=== PATIENT | female | born 1960 | race Caucasian/White ===

== ENCOUNTER 2020-03-02 09:05 | Outpatient (CLI) | payer OTHER, SELFPAY ==
--- NOTE | ~2020-03-02 | MM_ITS ---
EXAMINATION: MM screening reinier BI w jackie HISTORY: Screening TECHNIQUE: Craniocaudal and mediolateral oblique 3-D tomosynthesis images were obtained and synthetic 2-D images were generated. CAD analysis was submitted and interpreted. COMPARISON: 03/01/2019 BREAST PARENCHYMAL COMPOSITION: There are scattered areas of fibroglandular density. FINDINGS: There is no evidence of suspicious mass, calcification, or architectural distortion to sugg est malignancy in either breast. There has been no suspicious interval change. IMPRESSION: 1. No mammographic evidence of malignancy. 2. Recommend routine screening mammography in one year. BI-RADS Category 1: Negative Reviewed, dictated and finalized at location A.
== END 2020-03-02 09:06 | disposition home or self-care (01) ==
LOC: ANHIMG 09:09
DX: Z12.31 Encounter for screening mammogram for malignant neoplasm of breast (principal)
CPT/HCPCS: 77063; 77067

== ENCOUNTER 2020-04-11 12:48 | Emergency (ER) | payer OTHER, SELFPAY ==
--- NOTE | ~2020-04-11 | XR_ITS ---
EXAMINATION: XR knee LT 3V EXAM DATE: 04/11/2020 13:59 INDICATION: fall on 03/31/2020 lateral pain. Initial encounter. TECHNIQUE: Left knee frontal, crosstable lateral, orthogonal oblique projections for interpretation. There is no prior study for comparison. FINDINGS: No evidence osteochondral defect or joint body in the left knee joint. There are no acute fractures or dislocations identified. There is no subcutaneous gas. The soft tissue is unremarkabl e. There are no radiopaque foreign bodies. IMPRESSION: 1. XR knee LT 3V exam without acute osseous findings. Reviewed, dictated and finalized at location A. [employer]
--- NOTE | ~2020-04-11 | XR_ITS ---
EXAMINATION: XR lumbar spine 2-3V EXAM DATE: 04/11/2020 14:00 INDICATION: fall on 03/31/2020 pain low back. Low back pain. TECHNIQUE: Lumber spine frontal, lateral, lateral L5-S1 projections for interpretation. Correlation i s made to chest x-ray 11/24/2016. FINDINGS: The vertebral bodies are aligned in the AP dimension. There is mild compression fracture of the T12 vertebral body, unchanged compared to a chest x-ray from 2017. The vertebral body and dis c heights are otherwise well maintained. There are cholecystectomy clips. Mild facet arthropathy. Sa jose, sacroiliac joints, sacral arcuate lines are intact. Paraspinal soft tissue is unremarkable. IMPRESSION: Mild chronic T11 compression. Mild facet arthropathy. Reviewed, dictated and finalized at location A. [place] [facility]
--- NOTE | 2020-04-11 12:55 | ED.BACK ---
HPI - Back Pain/Injury General Chief Complaint: Back Pain/Injury Stated Complaint: knee/back pain Time Seen by Provider: 04/11/20 13:15 Source: patient and RN notes reviewed Mode of arrival: ambulatory Limitations: no limitations History of Present Illness HPI Narrative: 59 female presents with multiple complaints. Reports she fell on March 31 landing on her left elbow and hitting her right knee with a leaf blower. Reports she had no immediate problems or pain, went on about her day. Reports she saw her primary care provider because a break in the skin on her left elbow and her right knee seems to be infected. Reports he put her on clindamycin. Reports he suggested she get x-rays before her return appointment tomorrow. He did not order any x-rays. She denies any at home intervention, any [id number] intervention. She reports most pain is in her left knee and her right low back shooting down to her hip. She denies hip pain worsens with weightbearing. MD elicited complaint: fall Related Data Home Medications Medication Instructions Recorded Confirmed atorvastatin 40 mg DAILY 04/11/20 04/11/20 fexofenadine 60 mg DAILY 04/11/20 04/11/20 metoprolol succinate 50 mg PO DAILY 04/11/20 04/11/20 pantoprazole 40 mg PO DAILY 04/11/20 04/11/20 Allergies Allergy/AdvReac Type Severity Reaction Status Date / Time corn Allergy Intermediate STOMACH Verified 10/05/15 14:39 ISSUES/ ITCHING soy Allergy Intermediate STOMACH Verified 10/05/15 14:39 ISSUES/ITCHING wheat Allergy Intermediate STOMACH Verified 10/05/15 14:39 ISSUES/ITCHING ibuprofen Allergy Mild Unverified 10/05/15 14:39 Penicillins Allergy Mild Unverified 10/05/15 14:39 Sulfa (Sulfonamide Allergy Unknown Verified 11/24/16 02:22 Antibiotics) Cat Dander Allergy Intermediate HIVES, Uncoded 10/05/15 14:39 TONGUE SWELLS Review of Systems Review of Systems: Narrative: CONSTITUTIONAL: Denies malaise, chills, sweats, or fever. EYES: Denies visual changes, redness, or discharge. ENT: Denies rhinorrhea, congestion, sinus pain, otalgia or sore throat. CARDIOVASCULAR: Denies chest pain, palpitations, or edema. RESPIRATORY: Denies cough or dyspnea. GASTROINTESTINAL: Denies abdominal pain, nausea, vomiting GENITOURINARY: Denies dysuria or hematuria. SKIN: Reports healing wounds on her left elbow and right knee MUSCULOSKELETAL: Reports right low back pain, left knee pain NEUROLOGIC: Denies numbness, weakness, or headache. All systems reviewed & are unremarkable except as noted in HPI and below PMFSH Past Medical History Medical History (Updated 04/11/20 @ 14:14 by Daphne Carrillo NP) Cardiovascular disease Social History Social History (Updated 04/11/20 @ 13:40 by Daphne Carrillo NP) Smoking status: Current every day smoker Tobacco type: cigarettes Gender identity (if verbalized by the patient): Female Comments At time of signature, agree with nursing past medical, surgical, social and family history. There is no relevant family history pertinent to the presenting complaint Exam Narrative: Exam Narrative: GENERAL: Well-appearing, well-nourished, and in no acute distress. HEAD: Normocephalic, atraumatic. EYES: PERRLA NECK: Supple. No lymphadenopathy. CHEST: Scattered inspiratory wheeze to right lung, otherwise clear to auscultation. No rhonchi, no respiratory distress. HEART: Regular rate and rhythm. Distal pulses palpable and equal, cap refill <3 seconds MUSCULOSKELETAL: Normal range of motion and strength in all extremities; 5/5 strength with hip flexion and extension, dorsiflexion and extension, knee flexion and extension, plantar flexion and extension. Normal sensation in dermatomal distributions with sensitivity to light touch and pain. No midline back tenderness to palpation. No paraspinal tenderness. Transfers from lying to sitting to standing. Anterior drawer test negative, Juancho test negative, lever test negative to
[2020-04-11 13:02] VITALS: BP 123/70; PULSE 83; RESP 18; TEMP 36.3; O2SAT 100
== END 2020-04-11 14:23 | disposition home or self-care (01) ==
PROVIDERS: Emergency Provider Nurse Practitioner
DX: M54.5 Low back pain (principal); M25.562 Pain in left knee; W19.XXXD Unspecified fall, subsequent encounter; F17.210 Nicotine dependence, cigarettes, uncomplicated
CPT/HCPCS: 72100; 73562; 99214; G0463

== ENCOUNTER 2020-05-04 14:20 | Emergency (ER) | payer OTHER, SELFPAY ==
[2020-05-04 14:30] VITALS: BP 144/75; PULSE 74; RESP 18; TEMP 36.2; O2SAT 99
--- NOTE | 2020-05-04 14:32 | ED.GENADULT ---
HPI - General Adult General Chief complaint: Unspecified Stated complaint: pos thrush Time Seen by Provider: 05/04/20 14:33 Source: patient and RN notes reviewed Mode of arrival: ambulatory Limitations: no limitations History of Present Illness HPI narrative: 59 year old female presents with concern for white coating on her tongue, vaginal yeast infection that started after she finished a course of antibiotics. She also reports ear fullness, sinus drainage for several days. She denies fever, shortness of breath, body aches, chills, loss of taste or smell. Patient is a smoker MD complaint: Rash Related Data Home Medications Medication Instructions Recorded Confirmed atorvastatin 40 mg DAILY 04/11/20 05/04/20 fexofenadine 60 mg DAILY 04/11/20 05/04/20 metoprolol succinate 50 mg PO DAILY 04/11/20 05/04/20 pantoprazole 40 mg PO DAILY 04/11/20 05/04/20 clopidogrel 75 mg PO DAILY 05/04/20 05/04/20 montelukast 10 mg PO DAILY 05/04/20 05/04/20 Allergies Allergy/AdvReac Type Severity Reaction Status Date / Time corn Allergy Intermediate STOMACH Verified 05/04/20 14:39 ISSUES/ ITCHING soy Allergy Intermediate STOMACH Verified 05/04/20 14:39 ISSUES/ITCHING wheat Allergy Intermediate STOMACH Verified 05/04/20 14:39 ISSUES/ITCHING ibuprofen Allergy Mild Hives Verified 05/04/20 14:39 Penicillins Allergy Mild Hives Verified 05/04/20 14:39 Sulfa (Sulfonamide Allergy Unknown Hives Verified 05/04/20 14:39 Antibiotics) Cat Dander Allergy Intermediate HIVES, Uncoded 10/05/15 14:39 TONGUE SWELLS Review of Systems Review of Systems: Narrative: CONSTITUTIONAL: Denies malaise, chills, sweats, or fever. EYES: Denies visual changes, redness, or discharge. ENT: Reports rhinorrhea, congestion, ear fullness. Denies sinus pain, otalgia or sore throat. CARDIOVASCULAR: Denies chest pain, palpitations, or edema. RESPIRATORY: Denies new cough or dyspnea. SKIN: Reports vaginal itching, white coating on tongue MUSCULOSKELETAL: Denies myalgia. NEUROLOGIC: Denies headache. All systems reviewed & are unremarkable except as noted in HPI and below PMFSH Past Medical History Medical History (Updated 05/04/20 @ 14:54 by Daphne Carrillo NP) Cardiovascular disease Social History Social History (Updated 04/11/20 @ 13:40 by Daphne Carrillo NP) Smoking status: Current every day smoker Tobacco type: cigarettes Gender identity (if verbalized by the patient): Female Comments At time of signature, agree with nursing past medical, surgical, social and family history. There is no relevant family history pertinent to the presenting complaint Exam Narrative: Exam Narrative: GENERAL: Well-appearing, well-nourished, and in no acute distress. HEAD: Normocephalic EYES: PERRLA, conjunctivae clear ENT: Nares clear, clear disharge. Mucous membranes moist. TM pearly tyler with sharp light reflex bilaterally; no tragal tenderness. Oropharynx without erythema or lesions. Tonsils not enlarged and without exudate. White coating noted on tongue consistent with thrush NECK: Supple. No lymphadenopathy. CHEST: No respiratory distress. scattered expiratory wheeze othewise clear to auscultation. No bony deformities, no asymmetry. Speaks in full sentences. HEART: Regular rate and rhythm. SKIN: Warm, dry, no rash. NEURO: Alert and oriented x3. No focal deficits. Cranial nerves II through XII grossly intact PSYCH: Normal mood and affect Course Course Emergency Course: Patient is aware of diagnosis, understands and agrees to treatment plan. Anticipatory guidance given. Patient agrees to follow-up as directed and is aware of reasons to seek care at the emergency department. Portions of this record may have been created with voice recognition software Vital Signs Vital signs: Vital Signs Temperature 97.2 F L 05/04/20 14:30 Pulse Rate 74 05/04/20 14:30 Respiratory Rate 18 05/04/20 14:30 Blood Pressure 144/75 H 05/04/20 1
== END 2020-05-04 15:13 | disposition home or self-care (01) ==
PROVIDERS: Emergency Provider Nurse Practitioner
DX: B37.3 Candidiasis of vulva and vagina (principal); B37.0 Candidal stomatitis; J40 Bronchitis, not specified as acute or chronic; F17.210 Nicotine dependence, cigarettes, uncomplicated
CPT/HCPCS: 99213; G0463

== ENCOUNTER 2020-12-29 13:34 | Emergency (ER) | payer OTHER, SELFPAY ==
[2020-12-29 13:51] VITALS: BP 119/77; PULSE 82; RESP 16; TEMP 36.6; O2SAT 98
--- NOTE | 2020-12-29 14:19 | PC.NURSE ---
1400-Pt refusing to get covid tested. Pt states There are too many false positives and I'm not going to go through all that government bull shit . Provider educated pt regarding need for testing especially because of her history. Pt at one point got up and was going to leave. Provider discussed alternate options and repeatedly attempted to get pt to be tested but she continued to refuse.
--- NOTE | 2020-12-29 15:34 | ED.URI ---
HPI - URI/Sore Throat General Chief Complaint: Upper Respiratory Infection Stated Complaint: Chest Congestion,Cough,Headache,Sinus Source: patient and RN notes reviewed Limitations: no limitations History of Present Illness HPI Narrative: The unvaccinated patient-- a recent ex-smoker/rare drinker with COPD, CAD??presents with cough and congestion. Patient states she has nearly a week history of cough, nasal congestion and chills which has worsened her COPD . No fever, loss of taste/smell, CP, calf pain/edema, vomiting/diarrhea, shortness of breath. She does have some pleurisy only with deep breathing; she repeatedly declines Covid testing AMA saying she is skeptical and knows her own body . She declines further testing and almost declines further treatment, as she begins to elope. Related Data Home Medications Medication Instructions Recorded Confirmed atorvastatin 40 mg DAILY 04/11/20 12/29/20 fexofenadine 60 mg DAILY 04/11/20 12/29/20 metoprolol succinate 50 mg PO DAILY 04/11/20 12/29/20 pantoprazole 40 mg PO DAILY 04/11/20 12/29/20 clopidogrel 75 mg PO DAILY 05/04/20 12/29/20 montelukast 10 mg PO DAILY 05/04/20 12/29/20 albuterol sulfate 2 puff INHALATION BID PRN 12/29/20 12/29/20 azelastine 1 spray INTRANASAL BID 12/29/20 12/29/20 Allergies Allergy/AdvReac Type Severity Reaction Status Date / Time corn Allergy Intermediate STOMACH Verified 12/29/20 14:04 ISSUES/ ITCHING soy Allergy Intermediate STOMACH Verified 12/29/20 14:04 ISSUES/ITCHING wheat Allergy Intermediate STOMACH Verified 12/29/20 14:04 ISSUES/ITCHING ibuprofen Allergy Mild Hives Verified 12/29/20 14:04 Penicillins Allergy Mild Hives Verified 12/29/20 14:04 Sulfa (Sulfonamide Allergy Unknown Hives Verified 12/29/20 14:04 Antibiotics) Cat Dander Allergy Intermediate HIVES, Uncoded 12/29/20 14:04 TONGUE SWELLS Review of Systems Review of Systems: General/Constitutional: No weight loss,fever Eyes: N0: Redness,discharge Ears/Nose/Throat: No: Epistaxis,ear discharge Respiratory: Denies: Hemoptysis Gastrointestinal: No Vomiting, Bleeding-rectal Skin: No Lumps, eruption Neurologic: No Focal Weakness,Sz Hematologic: Denies: Petechiae/Purpura Psychiatric: No: Suicida ideationl All Other Systems: Reviewed and Negative [facility] Past Medical History Medical History (Updated 12/29/20 @ 15:29 by Roddy Floyd MD) Cardiovascular disease Social History Social History (Updated 04/11/20 @ 13:40 by Daphne Carrillo NP) Smoking status: Current every day smoker Tobacco type: cigarettes Gender identity (if verbalized by the patient): Female Comments At time of signature, agree with nursing past medical, surgical, social and family history. There is no relevant family history pertinent to the presenting complaint Exam Narrative: General Appearance: Well appearing, Well nourished EYE: PERRLA, Conjunctiva clear Ears: Auditory canal normal, TM normal Nose: Rhinorrhea, Mucousal erythema Mouth/Throat: MM moist, Uvula midline, Pharyngeal erythema Neck: Supple, No adenopathy Respiratory: No respiratory distress, BS equal sl decreased at bases, increased AP diameter, fine ex. wheeze Cardiovascular: RRR, No JVD, no edema Musculoskeletal: Non tender, Normal strength Skin: Warm, Dry Neurological: A&O x3, CN II-XII intact Psychiatric: Normal mood, Normal affect Course Vital Signs Vital signs: Vital Signs Temperature 97.9 F 12/29/20 13:51 Pulse Rate 82 12/29/20 13:51 Respiratory Rate 16 12/29/20 13:51 Blood Pressure 119/77 12/29/20 13:51 Pulse Oximetry 98 12/29/20 13:51 Temperature 97.9 F 12/29/20 13:51 Pulse Rate 82 12/29/20 13:51 Respiratory Rate 16 12/29/20 13:51 Blood Pressure 119/77 12/29/20 13:51 Pulse Oximetry 98 12/29/20 13:51 Discharge Plan Discharge Clinical Impression: Wheezing-associated respiratory infection (WARI), Influenza-like illness
== END 2020-12-29 14:38 | disposition home or self-care (01) ==
PROVIDERS: Emergency Provider Emergency Medicine
DX: J98.01 Acute bronchospasm (principal); J11.1 Influenza due to unidentified influenza virus with other respiratory manifestations; I25.10 Atherosclerotic heart disease of native coronary artery without angina pectoris
CPT/HCPCS: 99213; G0463

== ENCOUNTER 2021-01-11 17:28 | Emergency (ER) | payer OTHER, SELFPAY ==
[2021-01-11 17:45] VITALS: BP 116/63; PULSE 94; RESP 18; TEMP 36.3; O2SAT 99
--- NOTE | 2021-01-11 18:34 | ER_ITS ---
This report was moved to the correct visit, [id number] on 01/30/21. Original report was signed by Stanley Light APN 01/11/21 1108. HPI - Extremity Injury (Upper) General Stated Complaint: Headache,Cough,Chest Congestion,Sinus Source: patient and RN notes reviewed History of Present Illness HPI narrative: This is a 60-year-old female that was recently here on 12/29/2020 and treated for bronchitis she was discharged with cefdinir , an inhaler prednisone and Tessalon Perles. Patient noted that her condition did improve but as of yesterday she started to have sinus tenderness to her frontal lobes, ear and head congestion. Patient notes that her mucus was yellowish in color. Patient notes that she does have a history of having sinus infection and she is usually given Levaquin to resolve her symptoms. She also notes that she has a burning sensation with a white coat to her tongue. Patient recently received prednisone and take albuterol she notes that she does rinse her mouth after the use of albuterol. The patient denies SOB, CP, palpitation, extremity numbness, lightheadedness, dizziness, constipation, diarrhea, chills, or fever. Related Data Home Medications Medication Instructions Recorded Confirmed atorvastatin 40 mg DAILY 04/11/20 12/29/20 fexofenadine 60 mg DAILY 04/11/20 12/29/20 metoprolol succinate 50 mg PO DAILY 04/11/20 12/29/20 pantoprazole 40 mg PO DAILY 04/11/20 12/29/20 clopidogrel 75 mg PO DAILY 05/04/20 12/29/20 montelukast 10 mg PO DAILY 05/04/20 12/29/20 albuterol sulfate 2 puff INHALATION BID PRN 12/29/20 12/29/20 azelastine 1 spray INTRANASAL BID 12/29/20 12/29/20 Allergies Allergy/AdvReac Type Severity Reaction Status Date / Time corn Allergy Intermediate STOMACH Verified 01/11/21 17:45 ISSUES/ ITCHING soy Allergy Intermediate STOMACH Verified 01/11/21 17:45 ISSUES/ITCHING wheat Allergy Intermediate STOMACH Verified 01/11/21 17:45 ISSUES/ITCHING ibuprofen Allergy Mild Hives Verified 01/11/21 17:45 Penicillins Allergy Mild Hives Verified 01/11/21 17:45 Sulfa (Sulfonamide Allergy Unknown Hives Verified 01/11/21 17:45 Antibiotics) Cat Dander Allergy Intermediate HIVES, Uncoded 01/11/21 17:45 TONGUE SWELLS Review of Systems Review of Systems: A 14 organ system Review of Systems was performed and pertinent positives included in the HPI, otherwise remaining ROS is negative. [facility] Past Medical History Medical History (Updated 01/11/21 @ 18:28 by CASPER Canales) Cardiovascular disease Family History Family History (Updated 01/11/21 @ 18:32 by CASPER Canales) Other Family history non-contributory Social History Social History (Updated 04/11/20 @ 13:40 by Daphne Carrillo NP) Smoking status: Current every day smoker Tobacco type: cigarettes Gender identity (if verbalized by the patient): Female Exam Narrative: GENERAL: This is a well-nourished, well-developed patient, in no apparent distress. HEAD: normocephalic, atraumatic. EYES: PERRL. Sclera clear/white. Vision is grossly intact. EARS: External ears normal, auditory canals clear and without drainage, TMs normal without perforation. Hearing grossly intact. NOSE: External nose normal with no obvious nasal discharge, nares without redness, no rhinorrhea. Maxillary and frontal tenderness THROAT: Mucous membranes moist, posterior pharynx clear. White coat over her tongue NECK: Neck supple, non-tender without lymphadenopathy, masses or thyromegaly. CARDIOVASCULAR: Regular rate and rhythm without murmur
== END 2021-01-11 18:40 | disposition home or self-care (01) ==
LOC: EXPTROY 17:36
PROVIDERS: Emergency Provider Nurse Practitioner
DX: B37.0 Candidal stomatitis (principal); J01.01 Acute recurrent maxillary sinusitis; F17.210 Nicotine dependence, cigarettes, uncomplicated; I25.10 Atherosclerotic heart disease of native coronary artery without angina pectoris
CPT/HCPCS: 99213; G0463

== ENCOUNTER 2021-03-02 14:51 | Outpatient (CLI) | payer OTHER, SELFPAY ==
--- NOTE | ~2021-03-02 | MM_ITS ---
EXAMINATION: MM screening reinier BI w jackie HISTORY: Screening mammogram TECHNIQUE: Craniocaudal and mediolateral oblique 3-D tomosynthesis images were obtained and synthetic 2-D images were generated. CAD analysis was submitted and interpreted. COMPARISON: 03/02/2020, 03/01/2019 bilateral digital screening mammogram examinations BREAST PARENCHYMAL COMPOSITION: There are scattered areas of fibroglandular density. FINDINGS: Stable mild fibroglandular asymmetry and occasional bilateral scattered benign calcificatio ns. There is no evidence of suspicious mass, calcification, or architectural distortion to suggest ma lignancy in either breast. There has been no suspicious interval change. IMPRESSION: 1. No mammographic evidence of malignancy. 2. Recommend routine screening mammography in one year. BI-RADS Category 2: Benign finding(s). Reviewed, dictated and finalized at location A.
== END 2021-03-02 14:52 | disposition home or self-care (01) ==
LOC: ANHIMG 14:54
DX: Z12.31 Encounter for screening mammogram for malignant neoplasm of breast (principal)
CPT/HCPCS: 77063; 77067

== ENCOUNTER 2021-12-28 13:11 | Emergency (ER) | payer OTHER, SELFPAY ==
[2021-12-28 13:52] VITALS: BP 162/83; PULSE 74; RESP 18; TEMP 36.4; O2SAT 97
--- NOTE | 2021-12-28 14:58 | ED.EAR ---
HPI - Ear Problem General Chief complaint: Ear Stated complaint: ear pain History of Present Illness HPI Narrative: Patient is a 61-year-old female who presents to the [facility] via POV for evaluation of left ear pain that began November 09, 2021. Patient reports the pain is a throbbing and burning sensation. She reports pain radiates into left neck and left jaw. She also reports a sore on her left ear that drains a yellow/clear, blood-tinged drainage. Additionally, she reports swelling and tenderness. She has been using peroxide and cortisone daily since November 09. She believes she was bitten by an insect on Father's Day causing symptoms. Touching ear increases tenderness. Related Data Home Medications Medication Instructions Recorded Confirmed atorvastatin 40 mg tablet 40 mg DAILY 04/11/20 12/28/21 fexofenadine 60 mg tablet 60 mg DAILY 04/11/20 12/28/21 metoprolol succinate 50 mg 50 mg PO DAILY 04/11/20 12/28/21 tablet,extended release 24 hr pantoprazole 40 mg tablet,delayed 40 mg PO DAILY 04/11/20 12/28/21 release clopidogrel 75 mg tablet 75 mg PO DAILY 05/04/20 12/28/21 montelukast 10 mg tablet 10 mg PO DAILY 05/04/20 12/28/21 albuterol sulfate 90 mcg/actuation 2 puff inhalation BID PRN Wheezing 12/29/20 12/28/21 aerosol inhaler azelastine 137 mcg (0.1 %) nasal 1 spray intranasal BID 12/29/20 12/29/20 spray aerosol Allergies Allergy/AdvReac Type Severity Reaction Status Date / Time corn Allergy Intermediate STOMACH Verified 12/28/21 14:09 ISSUES/ ITCHING soy Allergy Intermediate STOMACH Verified 12/28/21 14:09 ISSUES/ITCHING wheat Allergy Intermediate STOMACH Verified 12/28/21 14:09 ISSUES/ITCHING ibuprofen Allergy Mild Hives Verified 12/28/21 14:09 Penicillins Allergy Mild Hives Verified 12/28/21 14:09 Sulfa (Sulfonamide Allergy Unknown Hives Verified 12/28/21 14:09 Antibiotics) Cat Dander Allergy Intermediate HIVES, Uncoded 12/28/21 14:09 TONGUE SWELLS Review of Systems Review of Systems: Denies injury. Pertinent negatives fever, chills, sweats, malaise, poor p.o. intake, change in appetite, headache, LOC, dizziness, streaking, numbness, tingling, loss of sensation, foreign body sensation, deformity, sob, chest pain, and heart palpitations/murmurs. PMFSH Past Medical History Medical History (Updated 12/28/21 @ 15:05 by BRANDI Bautista, ) Cardiovascular disease GERD (gastroesophageal reflux disease) Hypertension Seasonal allergies Family History Family History Other Family history non-contributory Social History Social History Smoking status: Current every day smoker Tobacco type: cigarettes Gender identity (if verbalized by the patient): Female Comments I have reviewed and agree with the patient's past medical, surgical, social, and family hx as documented by the RN. There is no relevant family history pertinent to the presenting complaint. Exam Narrative: GENERAL: Well-appearing, well-nourished, and in no acute distress. HEAD: Normocephalic, atraumatic. No facial swelling appreciated. EYES: PERRLA and EOMI. No evidence of erythema, swelling, or drainage. ENT: Nares clear, no rhinorrhea or epistaxis.Mucous membranes moist and pink. Uvula is midline without erythema and swelling. Oropharynx is normal. Moderate cellulitis is noted to left external ear. Small open wound noted to floor of tony of left ear otherwise ears are normal. NECK: Supple. No Lymphadenopathy or nuchal rigidity appreciated. CHEST: Bilateral lung david are clear to auscultation. No respiratory distress. No evidence of cough or pleuritic cp upon examination. HEART: Regular rate and rhythm. No murmur, gallop, or rub heard. EXTREMITIES: Normal range of motion. No edema. SKIN: Warm, dry. No evidence of cellulitis, abscess, streaking, indurati
== END 2021-12-28 15:00 | disposition home or self-care (01) ==
PROVIDERS: Emergency Provider Nurse Practitioner Family
DX: H60.12 Cellulitis of left external ear (principal); F17.210 Nicotine dependence, cigarettes, uncomplicated; K21.9 Gastro-esophageal reflux disease without esophagitis; I10 Essential (primary) hypertension
CPT/HCPCS: 99213; G0463

== ENCOUNTER 2022-01-29 12:07 | Emergency (ER) | payer OTHER, SELFPAY ==
--- NOTE | 2022-01-29 12:16 | ED.EAR ---
HPI - Ear Problem General Chief complaint: Ear Stated complaint: Lt Ear Irritation Time Seen by Provider: 01/29/22 12:30 Source: patient and RN notes reviewed Mode of arrival: ambulatory Limitations: no limitations History of Present Illness HPI Narrative: 61-year-old female returns to the [facility] with an unhealing wound to the left ear. Sore to the lower aspect of the tony just prior to ear canal. Patient states there has been drainage from it. Did not follow-up with primary care provider. Patient had finished the entire course of doxycycline. No redness or inflammation noted to the ear itself. Ear canal is without abnormal findings. Patient denies any fevers. States this all started at Father's Day in October. Related Data Home Medications Medication Instructions Recorded Confirmed atorvastatin 40 mg tablet 40 mg DAILY 04/11/20 01/29/22 fexofenadine 60 mg tablet 60 mg DAILY 04/11/20 01/29/22 metoprolol succinate 50 mg 50 mg PO DAILY 04/11/20 01/29/22 tablet,extended release 24 hr pantoprazole 40 mg tablet,delayed 40 mg PO DAILY 04/11/20 01/29/22 release clopidogrel 75 mg tablet 75 mg PO DAILY 05/04/20 01/29/22 montelukast 10 mg tablet 10 mg PO DAILY 05/04/20 01/29/22 albuterol sulfate 90 mcg/actuation 2 puff inhalation BID PRN Wheezing 12/29/20 01/29/22 aerosol inhaler azelastine 137 mcg (0.1 %) nasal 1 spray intranasal BID 12/29/20 01/29/22 spray aerosol Allergies Allergy/AdvReac Type Severity Reaction Status Date / Time corn Allergy Intermediate STOMACH Verified 01/29/22 12:41 ISSUES/ ITCHING soy Allergy Intermediate STOMACH Verified 01/29/22 12:41 ISSUES/ITCHING wheat Allergy Intermediate STOMACH Verified 01/29/22 12:41 ISSUES/ITCHING ibuprofen Allergy Mild Hives Verified 01/29/22 12:41 Penicillins Allergy Mild Hives Verified 01/29/22 12:41 Sulfa (Sulfonamide Allergy Unknown Hives Verified 01/29/22 12:41 Antibiotics) Cat Dander Allergy Intermediate HIVES, Uncoded 01/29/22 12:41 TONGUE SWELLS Review of Systems Review of Systems: All systems reviewed & are unremarkable except as noted in HPI and below Constitutional: Constitutional: Reports no additional constitutional complaints, Denies chills and Denies fever(s) Eyes: Eyes: Reports no additional eye complaints ENT: Reports as per HPI (Sore to the left ear) Cardiovascular: Cardiovascular: Reports no additional cardiovascular complaints Respiratory: Respiratory: Reports no additional respiratory complaints Gastrointestinal: Gastrointestinal: Reports no additional gastrointestinal complaints Musculoskeletal: Musculoskeletal: Reports no additional musculoskeletal complaints Integumentary/Breasts: Skin/Breast: Reports system reviewed and no additional complaints, except as docu Neurologic: Reports system reviewed and no additional complaints, except as documented Psychiatric: Psychiatric: Reports no additional psychiatric complaints Allergic/Immunologic: Allergic/Immunologic: Reports no additional allergic/immunologic complaints PMFSH Past Medical History Medical History Cardiovascular disease GERD (gastroesophageal reflux disease) Hypertension Seasonal allergies Family History Family History Other Family history non-contributory Social History Social History Smoking status: Current every day smoker Tobacco type: cigarettes Gender identity (if verbalized by the patient): Female Comments At the time of my signature, I reviewed and agree with the nursing past medical, surgical, social, and family history. There is no relevant family history pertinent to the patient complaint. Exam Const: General: healthy appearing, no acute distress and alert Nutritional Appearance: well nourished Orientation/consciousness: patient con
[2022-01-29 12:23] VITALS: BP 119/66; PULSE 88; RESP 18; TEMP 36; O2SAT 97
== END 2022-01-29 12:53 | disposition home or self-care (01) ==
PROVIDERS: Emergency Provider Nurse Practitioner
DX: S01.302D Unspecified open wound of left ear, subsequent encounter (principal); X58.XXXD Exposure to other specified factors, subsequent encounter; J42 Unspecified chronic bronchitis; K21.9 Gastro-esophageal reflux disease without esophagitis; I10 Essential (primary) hypertension; F17.210 Nicotine dependence, cigarettes, uncomplicated
CPT/HCPCS: 87070; 87075; 87147; 87181; 87186; 87205; 99213; G0463

== ENCOUNTER 2022-03-01 10:45 | Outpatient (CLI) | payer OTHER, SELFPAY ==
--- NOTE | ~2022-03-01 | MM_ITS ---
EXAMINATION: MM screening reinier BI w jackie HISTORY: Screening mammogram, family history of breast cancer in her mother. TECHNIQUE: Craniocaudal and mediolateral oblique 3-D tomosynthesis images were obtained and synthetic 2-D images were generated. CAD analysis was submitted and interpreted. COMPARISON: 03/02/2021, 03/02/2020, 03/01/2019 BREAST PARENCHYMAL COMPOSITION: There are scattered areas of fibroglandular density. FINDINGS: There is stable focal asymmetry in the upper outer quadrant of the right breast. No suspici ous mass, calcification, or architectural distortion are identified in either breast to suggest malig carlos. There has been no suspicious interval change. IMPRESSION: 1. No mammographic evidence of malignancy. 2. Recommend routine screening mammography in one year. BI-RADS Category 2: Benign finding(s). Reviewed, dictated and finalized at location A.
== END 2022-03-01 10:46 | disposition home or self-care (01) ==
LOC: ANHIMG 10:48
DX: Z12.31 Encounter for screening mammogram for malignant neoplasm of breast (principal)
CPT/HCPCS: 77063; 77067

== ENCOUNTER 2022-06-18 00:46 | Day surgery (SDC) | payer OTHER, SELFPAY ==
[2022-06-06 14:26] VITALS: BMI 31.1
--- NOTE | 2022-06-18 07:01 | WPDANESEPPF ---
Anes - Initial Pre Proc Eval Procedure: Operation Date: 06/18/22 09:00 Proposed Procedures p Esophagogastroduodenoscopy & Screening Colonoscopy - Trevor Pierson MD Date/Time: 06/18/22 07:01 Surgeon: Trevor Pierson MD Pre Op Diagnosis: hx colon polyps, bloating Patient Data Age: 61 Gender: F Height: 1.61 m Weight: 81 kg Allergies Allergy/AdvReac Type Severity Reaction Status Date / Time corn Allergy Severe Swelling Verified 06/18/22 08:02 of Lip/Tongue/Throat Penicillins Allergy Severe Hives Verified 06/18/22 08:02 soy Allergy Severe Swelling Verified 06/18/22 08:02 of Lip/Tongue/Throat Sulfa (Sulfonamide Allergy Severe Swelling Verified 06/18/22 08:02 Antibiotics) of Lip/Tongue/Throat wheat Allergy Severe Swelling Verified 06/18/22 08:02 of Lip/Tongue/Throat ibuprofen Allergy Mild Hives Verified 06/18/22 08:02 Cat Dander Allergy Severe HIVES, Uncoded 06/18/22 08:02 TONGUE SWELLS Home Medications Medication Instructions Recorded Confirmed Type atorvastatin 40 mg tablet 40 mg PO DAILY 04/11/20 06/18/22 History fexofenadine 60 mg tablet 60 mg PO DAILY 04/11/20 06/18/22 History metoprolol succinate 50 mg 50 mg PO DAILY 04/11/20 06/18/22 History tablet,extended release 24 hr clopidogrel 75 mg tablet 75 mg PO DAILY 05/04/20 06/18/22 History montelukast 10 mg tablet 10 mg PO DAILY 05/04/20 06/18/22 History albuterol sulfate 90 mcg/actuation 2 puff inhalation Q4H PRN Wheezing 12/29/20 06/18/22 History aerosol inhaler azelastine 137 mcg (0.1 %) nasal 1 spray intranasal BID PRN Allergy 12/29/20 06/18/22 History spray aerosol Symptoms fluticasone propionate 220 1 puff inhalation Q12H #12 grams 12/29/20 06/18/22 Rx mcg/actuation HFA aerosol inhaler (Flovent HFA) sodium,potassium,mag sulfates 17.5 See Rx Instructions PO .COMPLEX 05/29/22 06/18/22 Rx gram-3.13 gram-1.6 gram oral soln #354 mL (Suprep Bowel Prep Kit) cholecalciferol (vitamin D3) 125 125 mcg PO DAILY 06/06/22 06/18/22 History mcg (5,000 unit) tablet (Vitamin D3) mupirocin 2 % topical ointment 1 applic topical TID PRN Rash 06/06/22 06/18/22 History pantoprazole 20 mg tablet,delayed 20 mg PO DAILY 06/06/22 06/18/22 History release zinc 50 mg tablet 50 mg PO DAILY 06/06/22 06/18/22 History Patient hx anesthesia problems: none Family hx anesthesia problems: none Results Review: All pre-operative results and documents have been reviewed as part of the pre-operative evaluation. [facility] Past Medical History Medical History (Updated 06/18/22 @ 08:36 by Trevor Pierson MD) CAD (coronary artery disease) Cardiovascular disease COPD (chronic obstructive pulmonary disease) GERD (gastroesophageal reflux disease) History of heart attack 2017 Hypertension Seasonal allergies Surgical History Surgical History (Updated 06/18/22 @ 07:02 by Paco Owen DO) History of coronary artery stent placement Family History Family History Other Family history non-contributory Social History Social History Smoking packs per day: 1 Smoking cigarettes per day: 20.0 Years smoked: 40 Smoking pack-years: 40.00 Smoking status: Current every day smoker Tobacco type: cigarettes Alcohol intake: current Substance use: never Substance use type: does not use Living arrangements: with family Gender identity (if verbalized by the patient): Female Spiritual care concerns: No Anes - Eval Final PreProcedure Day of Procedure 06/18/22 07:01 Patient weight: obese Heart: regular rate and rhythm Lungs: clear to auscultation Airway: Mallampati scale class II Neurological: alert and oriented Last oral intake: >/= 8 hours ASA classification: III Emergent: no Anesthetic plan: proceed Anesthesia type and monitoring: general GIVS and standar
[2022-06-18 08:05] VITALS: BP 120/55; PULSE 86; RESP 16; TEMP 36.1; O2SAT 100
[2022-06-18] MEDS: LACTATED RINGERS 1,000 ML 150 ML IV CONT (08:21)
--- NOTE | 2022-06-18 08:34 | PM.HPGS ---
History of Present Illness History of Present Illness Consent: Risks, benefits, and alternatives have been discussed and questions answered. Patient agrees to proceed with procedure. Chief complaint: hx colon polyps, bloating Narrative: Simran Grant is a 61 year old female Presents for colonoscopy and EGD. 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 Patient is reports having had colonoscopy elsewhere because of diverticulitis. Only diverticular disease was identified. Patient reports recent epigastric bloating with vague discomfort across the upper abdomen and right upper abdomen. Appears to intensify after eating. She has been on pantoprazole for quite some time related to acid reflux. She states the dose of medication was decreased this may had no impact on her upper abdominal pain. She does have occasional heartburn. She states heartburn does better on higher doses of PPI acid suppression. Patient denies any dysphagia. She has no weight loss or bleeding. She recently slightly saw Gynecology for a lesion. Apparently is anticipated see Colorectal surgery for evaluation. Review of Systems Review of Systems: Review of systems noncontributory. [facility] Past Medical History Medical History (Updated 06/18/22 @ 08:36 by Trevor Pierson MD) CAD (coronary artery disease) Cardiovascular disease COPD (chronic obstructive pulmonary disease) GERD (gastroesophageal reflux disease) History of heart attack 2017 Hypertension Seasonal allergies Surgical History Surgical History (Updated 06/18/22 @ 07:02 by Paco Owen DO) History of coronary artery stent placement Family History Family History Other Family history non-contributory Social History Social History Smoking packs per day: 1 Smoking cigarettes per day: 20.0 Years smoked: 40 Smoking pack-years: 40.00 Smoking status: Current every day smoker Tobacco type: cigarettes Alcohol intake: current Substance use: never Substance use type: does not use Living arrangements: with family Gender identity (if verbalized by the patient): Female Spiritual care concerns: No Meds Home Medications and Allergies Home Medications Medication Instructions Recorded Confirmed Type atorvastatin 40 mg tablet 40 mg PO DAILY 04/11/20 06/18/22 History fexofenadine 60 mg tablet 60 mg PO DAILY 04/11/20 06/18/22 History metoprolol succinate 50 mg 50 mg PO DAILY 04/11/20 06/18/22 History tablet,extended release 24 hr clopidogrel 75 mg tablet 75 mg PO DAILY 05/04/20 06/18/22 History montelukast 10 mg tablet 10 mg PO DAILY 05/04/20 06/18/22 History albuterol sulfate 90 mcg/actuation 2 puff inhalation Q4H PRN Wheezing 12/29/20 06/18/22 History aerosol inhaler azelastine 137 mcg (0.1 %) nasal 1 spray intranasal BID PRN Allergy 12/29/20 06/18/22 History spray aerosol Symptoms fluticasone propionate 220 1 puff inhalation Q12H #12 grams 12/29/20 06/18/22 Rx mcg/actuation HFA aerosol inhaler (Flovent HFA) sodium,potassium,mag sulfates 17.5 See Rx Instructions PO .COMPLEX 05/29/22 06/18/22 Rx gram-3.13 gram-1.6 gram oral soln #354 mL (Suprep Bowel Prep Kit) cholecalciferol (vitamin D3) 125 125 mcg PO DAILY 06/06/22 06/18/22 History mcg (5,000 unit) tablet (Vitamin D3) mupirocin 2 % topical ointment 1 applic topical TID PRN Rash 06/06/22 06/18/22 History pantoprazole 20 mg tablet,delayed 20 mg PO DAILY 06/06/22 06/18/22 History release zinc 50 mg tablet 50 mg PO DAILY 06/06/22 06/18/22 History Allergies Allergy/AdvReac Type Severity Reaction Status Date / Time corn Allergy Severe Swelling Verified 06/18/22 08:02 of Lip/Tongue/Throat Penicillins Allergy Severe Hives Verified 06/18/22 08:02 soy Allergy Severe Swelling Verified 06/18/22 08:02 of Lip/Tongue/
--- NOTE | 2022-06-18 09:32 | SUR.OPER ---
EGD ended at 923. Colonoscopy started at 930.
[2022-06-18 09:53] VITALS: BP 73/48; PULSE 75; RESP 22; O2SAT 100
[2022-06-18 10:03] VITALS: BP 84/65; PULSE 77; RESP 26; O2SAT 97
--- NOTE | 2022-06-18 10:09 | SUR.PHASEII ---
Dr. Pierson verbally addressed when to resume Plavix. Resume tomorrow, 06/19/2022.
[2022-06-18 10:13] VITALS: BP 107/62; PULSE 76; RESP 21; O2SAT 97
== END 2022-06-18 10:23 | disposition home or self-care (01) ==
PROVIDERS: Visit Provider Internal Medicine Gastroenterology
PROC: 0DJ08ZZ Inspection of Upper Intestinal Tract, Via Natural or Artificial Opening Endoscopic (ICD-10-PCS; CPT 43235; principal; 2022-06-18 09:00)
DX: Z12.11 Encounter for screening for malignant neoplasm of colon (principal); D12.5 Benign neoplasm of sigmoid colon; D12.2 Benign neoplasm of ascending colon; K64.8 Other hemorrhoids; R10.13 Epigastric pain; Q39.4 Esophageal web; I25.10 Atherosclerotic heart disease of native coronary artery without angina pectoris; J44.9 Chronic obstructive pulmonary disease, unspecified; K21.9 Gastro-esophageal reflux disease without esophagitis; I25.2 Old myocardial infarction; I10 Essential (primary) hypertension; Z95.5 Presence of coronary angioplasty implant and graft; F17.210 Nicotine dependence, cigarettes, uncomplicated; E66.9 Obesity, unspecified; Z68.30 Body mass index [BMI] 30.0-30.9, adult; Z79.51 Long term (current) use of inhaled steroids; Z79.02 Long term (current) use of antithrombotics/antiplatelets
CPT/HCPCS: 45385; 43450; 43235; 88305; J2704; J7120

== ENCOUNTER 2022-10-31 12:00 | Emergency (ER) | payer OTHER, SELFPAY ==
--- NOTE | ~2022-10-31 | XR_ITS ---
XR chest 2V DATE: 10/31/2022 12:36 INDICATION: Cough for 10 days TECHNIQUE: 2 views COMPARISON: 11/28/2016 PA and lateral chest FINDINGS: There is chronic mild anterior wedging and loss of height of T12, stable since 11/28/2016. Th ere is osteopenia. Surgical clips, right upper quadrant, consistent with cholecystectomy. Heart size is borderline. No hilar or mediastinal enlargement. No pulmonary vascular congestion or pl eural effusion. Bilateral hyperinflation. No pulmonary infiltrate or consolidation. IMPRESSION: Borderline heart size Bilateral hyperinflation No active pulmonary disease Status post cholecystectomy Chronic mild compression fracture deformity of T12, stable since 2016 Reviewed, dictated and finalized at location L.
[2022-10-31 12:11] VITALS: BP 145/86; PULSE 71; RESP 18; TEMP 36.2; O2SAT 97
--- NOTE | 2022-10-31 12:13 | ED.URI ---
HPI - URI/Sore Throat General Chief Complaint: Skin/Abscess/Foreign Body Stated Complaint: rash Time Seen by Provider: 10/31/22 12:13 Source: patient Mode of arrival: ambulatory Limitations: no limitations History of Present Illness HPI Narrative: 61-year-old female presents with multiple complaints. Reports upper respiratory symptoms, for the last 10 days. Reports pain to left lower lung when coughing. Also reports fatigue. States that her wallpaper inspector recently changed her metoprolol from 50 mg to 75 mg. She feels that her fatigue is either from the medication change or from the cough. Is concerned that she may have pneumonia. Denies shortness of breath. Also reports rash under left breast. Showed to her wallpaper inspector last week and was told it was a fungal rash. Was out of his scope of practice and would not prescribe her an antifungal cream. States that she went to the pharmacy and was told to get gold Chua powder but wanted to wait and have someone else look at it before starting something [id number]. Also reports oral thrush. States that she has a chronic history of this. Her primary care physician was going to prescribe her an oral antifungal the last time she saw him but it was never sent to the pharmacy. She states since then her primary care physician has moved from the clinic, she has not had a doctor for over year and half. Has an appointment with a new physician in December. Systems reviewed and negative except as noted above. Related Data Home Medications Medication Instructions Recorded Confirmed atorvastatin 40 mg tablet 40 mg PO DAILY 04/11/20 10/31/22 fexofenadine 60 mg tablet 60 mg PO DAILY 04/11/20 10/31/22 metoprolol succinate 50 mg 50 mg PO DAILY 04/11/20 10/31/22 tablet,extended release 24 hr clopidogrel 75 mg tablet 75 mg PO DAILY 05/04/20 10/31/22 montelukast 10 mg tablet 10 mg PO DAILY 05/04/20 10/31/22 albuterol sulfate 90 mcg/actuation 2 puff inhalation Q4H PRN Wheezing 12/29/20 10/31/22 aerosol inhaler azelastine 137 mcg (0.1 %) nasal 1 spray intranasal BID PRN Allergy 12/29/20 10/31/22 spray aerosol Symptoms cholecalciferol (vitamin D3) 125 125 mcg PO DAILY 06/06/22 10/31/22 mcg (5,000 unit) tablet (Vitamin D3) pantoprazole 20 mg tablet,delayed 20 mg PO DAILY 06/06/22 10/31/22 release zinc 50 mg tablet 50 mg PO DAILY 06/06/22 10/31/22 Allergies Allergy/AdvReac Type Severity Reaction Status Date / Time corn Allergy Severe Swelling Verified 10/31/22 12:38 of Lip/Tongue/Throat Penicillins Allergy Severe Hives Verified 10/31/22 12:38 soy Allergy Severe Swelling Verified 10/31/22 12:38 of Lip/Tongue/Throat Sulfa (Sulfonamide Allergy Severe Swelling Verified 10/31/22 12:38 Antibiotics) of Lip/Tongue/Throat wheat Allergy Severe Swelling Verified 10/31/22 12:38 of Lip/Tongue/Throat ibuprofen Allergy Mild Hives Verified 10/31/22 12:38 Cat Dander Allergy Severe HIVES, Uncoded 10/31/22 12:38 TONGUE SWELLS Review of Systems Review of Systems: CONSTITUTIONAL: Denies fever, chills, or sweats. EYES: Denies visual changes, redness, or discharge. ENT: Denies rhinorrhea, congestion, sore throat, or otalgia. Reports thick, sore sensation to tongue concerning for thrush. CARDIOVASCULAR: Denies chest pain, palpitations, or edema. RESPIRATORY: Reports cough. Denies dyspnea. GASTROINTESTINAL: Denies abdominal pain, nausea, vomiting, or diarrhea. GENITOURINARY: Denies dysuria or hematuria. SKIN: reports itchy, burning rash to left breast. MUSCULOSKELETAL: Denies back pain, joint pain, or myalgia. NEUROLOGIC: Denies headache, numbness, or weakness. PSYCHIATRIC: Denies anxiety or depression. All other systems reviewed are negative, except as documented in HPI. [facility] Past Medical History Medical History (Updated 10/31/22 @ 13:43 by Leslie Granados NP) CAD (coronary artery disease) Cardiovascular disease COPD (chronic ob
[2022-10-31] MEDS: IPRATROPIUM BR 0.02% INH SOLN 0.5 MG/2.5 ML VIAL INHALATION (12:38)
[2022-10-31] MEDS: ALBUTEROL SULFATE NEB 2.5 MG/3 ML INH INHALATION (12:38)
== END 2022-10-31 13:18 | disposition home or self-care (01) ==
PROVIDERS: Emergency Provider Nurse Practitioner Family
DX: B37.0 Candidal stomatitis (principal); B37.2 Candidiasis of skin and nail; J45.901 Unspecified asthma with (acute) exacerbation; F17.210 Nicotine dependence, cigarettes, uncomplicated; I25.10 Atherosclerotic heart disease of native coronary artery without angina pectoris; J44.9 Chronic obstructive pulmonary disease, unspecified; I10 Essential (primary) hypertension; K21.9 Gastro-esophageal reflux disease without esophagitis; I25.2 Old myocardial infarction
CPT/HCPCS: 71046; 94640; 99213; G0463

== ENCOUNTER 2022-11-16 16:28 | Emergency (ER) | payer OTHER, SELFPAY ==
[2022-11-16 16:38] VITALS: BP 129/81; PULSE 70; RESP 18; TEMP 36.4; O2SAT 99
--- NOTE | 2022-11-16 16:38 | ED.URI ---
HPI - URI/Sore Throat General Chief Complaint: Upper Respiratory Infection Stated Complaint: sinus pressure Time Seen by Provider: 11/16/22 16:38 Source: patient Mode of arrival: ambulatory Limitations: no limitations History of Present Illness HPI Narrative: Patient is a 62-year-old female that presents with fever blisters and sores in her mouth that started 2 days ago. Patient has been taking old prescription of acyclovir with no relief. Patient also having headaches, nausea and diarrhea. Patient denies any fevers, is still able to turn neck without pain. States she had congestion earlier this week but is now resolved. Was just recently treated for an asthma exacerbation on the . Patient was given steroids at that time. Uses daily inhaler and allergy medicine. Has not taken anything else for symptoms Related Data Home Medications Medication Instructions Recorded Confirmed atorvastatin 40 mg tablet 40 mg PO DAILY 04/11/20 11/16/22 fexofenadine 60 mg tablet 60 mg PO DAILY 04/11/20 11/16/22 metoprolol succinate 50 mg 50 mg PO DAILY 04/11/20 11/16/22 tablet,extended release 24 hr clopidogrel 75 mg tablet 75 mg PO DAILY 05/04/20 11/16/22 montelukast 10 mg tablet 10 mg PO DAILY 05/04/20 11/16/22 albuterol sulfate 90 mcg/actuation 2 puff inhalation Q4H PRN Wheezing 12/29/20 11/16/22 aerosol inhaler azelastine 137 mcg (0.1 %) nasal 1 spray intranasal BID PRN Allergy 12/29/20 11/16/22 spray aerosol Symptoms cholecalciferol (vitamin D3) 125 125 mcg PO DAILY 06/06/22 11/16/22 mcg (5,000 unit) tablet (Vitamin D3) pantoprazole 20 mg tablet,delayed 20 mg PO DAILY 06/06/22 11/16/22 release zinc 50 mg tablet 50 mg PO DAILY 06/06/22 11/16/22 Allergies Allergy/AdvReac Type Severity Reaction Status Date / Time corn Allergy Severe Swelling Verified 11/16/22 16:47 of Lip/Tongue/Throat Penicillins Allergy Severe Hives Verified 11/16/22 16:47 soy Allergy Severe Swelling Verified 11/16/22 16:47 of Lip/Tongue/Throat Sulfa (Sulfonamide Allergy Severe Swelling Verified 11/16/22 16:47 Antibiotics) of Lip/Tongue/Throat wheat Allergy Severe Swelling Verified 11/16/22 16:47 of Lip/Tongue/Throat ibuprofen Allergy Mild Hives Verified 11/16/22 16:47 Cat Dander Allergy Severe HIVES, Uncoded 11/16/22 16:47 TONGUE SWELLS Review of Systems Review of Systems: All systems reviewed & are unremarkable except as noted in HPI and below Constitutional: Constitutional: Denies body ache(s), Denies chills, Denies fatigue, Denies fever(s), Reports headache(s), Denies malaise and Denies weakness Eyes: Eyes: Denies blurry vision, Denies itchy eyes and Denies loss of vision ENT: Denies otalgia, Denies headache(s), Denies nasal congestion, Denies sinus pain, Reports sinus pressure, Denies sore throat and Reports other (Fever blisters) Cardiovascular: Cardiovascular: Denies chest pain, Denies irregular heart rhythm and Denies dyspnea Respiratory: Respiratory: Reports cough and Denies dyspnea Gastrointestinal: Gastrointestinal: Denies abdominal pain, Reports diarrhea, Reports nausea and Denies vomiting Musculoskeletal: Musculoskeletal: Denies back pain, Denies myalgias and Denies arthralgias Integumentary/Breasts: Skin/Breast: Denies pruritus and Denies rash Neurologic: Denies headache(s), Denies loss of vision and Denies weakness Psychiatric: Psychiatric: Reports no additional psychiatric complaints Endocrine: Endocrine: Denies fatigue Allergic/Immunologic: Allergic/Immunologic: Denies itchy eyes PMFSH Past Medical History Medical History (Updated 11/16/22 @ 17:07 by Anne Marie Newman APRN) CAD (coronary artery disease) Cardiovascular disease COPD (chronic obstructive pulmonary disease) GERD (gastroesophageal reflux disease) History of heart attack 2017 Hypertension Seasonal allergies Surgical History Surgical History (Updated 06/18/22 @ 07:02 by Paco Owen DO
== END 2022-11-16 17:15 | disposition home or self-care (01) ==
PROVIDERS: Emergency Provider Nurse Practitioner Family
DX: B34.9 Viral infection, unspecified (principal); K52.9 Noninfective gastroenteritis and colitis, unspecified; B00.1 Herpesviral vesicular dermatitis; F17.210 Nicotine dependence, cigarettes, uncomplicated; I25.10 Atherosclerotic heart disease of native coronary artery without angina pectoris; J44.9 Chronic obstructive pulmonary disease, unspecified; K21.9 Gastro-esophageal reflux disease without esophagitis; I10 Essential (primary) hypertension; I25.2 Old myocardial infarction; Z95.5 Presence of coronary angioplasty implant and graft
CPT/HCPCS: 87804; 99213; G0463

== ENCOUNTER 2023-01-22 07:30 | Outpatient (RCR) | payer OTHER, SELFPAY ==
--- NOTE | 2022-12-13 12:14 | OPREHPOC ---
Outpatient Therapy Plan of Care This is a Multidisciplinary Plan of Care that may contain components documented by all disciplines (PT, OT, and ST.) PT Problem 1 PT Problem #1 Knowledge Deficit PT Goal 1 Goal 1. Patient will demonstrate independence with home exercise program PT Problem 2 PT Problem #2 Impaired Balance PT Goal 1 Goal 1. Patient will perform LLE single leg stance for 10 seconds PT Problem 3 PT Problem #3 Impaired Range of Motion PT Goal 1 Goal 1. Patient will demonstrate L ankle AROM WNL in all planes PT Problem 4 PT Problem #4 Impaired Strength PT Goal 1 Goal 1. Patient will demonstrate L ankle strength 4+/5 in all planes PT Problem 5 PT Problem #5 Impaired Gait PT Goal 1 Goal 1. Patient will self report return to ambulating without boot in home and community. 2. Patient will demonstrate ability to ascend/ descend stairs without boot.
--- NOTE | 2022-12-13 12:14 | PTOPEVAL1 ---
Assessment and note entered by rCys Angel, PT Evaluation Information Assessment Status Evaluation Diagnosis L foot pain Onset August 2022 Subjective Information Patient referred to physical therapy after slipping on a rock in August resulting in L foot injury. Patient reports that her L toes, top/bottom of foot, and L ankle. Patient currently wearing a walking boot, patient has been wearing boot since August. Per MD patient is ok to begin weaning herself off walking boot. pain reports L foot pain is 5/10. Patient goals for physical therapy is to return to walking without boot, decrease pain, and improve ankle stability. Reported Pain Level Pain Score 5: Self Report Assessment PT Clinical Summary Patient referred to physical therapy after a fall in August resulting in L foot injury/ankle sprain. Patient has been wearing a walking boot since injury, MRI shows no tears or fractures. Per MD patient is ok to begin weaning from walking boot. Patient presents with L foot pain rated 5/10. Patient presents wit hL foot edema, tenderness to palpation, decreased range of motion AROM/PROM, decreased L ankle strength. Patient would benefit form skilled therapy 2x/wk for 12 visits to return to mobility without boot, decrease pain and return to PLOF. Plan of Care Interventions Electrical Stimulation,Gait Training,Hot Pack/Cold Pack,Manual Therapy,Neuro Re-education,Prosthetic Training,Therapeutic Activities,Therapeutic Exercise,Ultrasound Other Interventions CUPPING, TAPING, IASTM PT Services Indicated Yes Treatment Frequency and 2x/wk for 12 visits Duration These treatments will address the objective and functional deficits as defined above. The patient will be advanced safely and appropriately in order for the patient to progress towards his/her prior level of function. Additional exercises will be introduced and as well as a comprehensive home exercise program upon discharge, if needed, ?to ensure carryover of functional gains achieved in the clinic. This treatment plan has been reviewed and agreement upon by the patient.
--- NOTE | 2023-01-22 10:56 | PTOPDC ---
Assessment and note entered by Duy Crenshaw Evaluation Information Assessment Status Discharge Diagnosis left foot pain Onset August 2022 Subjective Information Pt. continues to describe pain in the left big toe and midfoot. she reports that she notices she can walk better, but continues to be frustrated with the persistent pain. She reports she continues to exercise at home, but even being on her feet for a short duration will increase her pain. She states that she is ready for discharge at this time. Reported Pain Level Pain Score 3: Self Report Assessment PT Clinical Summary Pt. has met the majority of her goals. Despite her objective progress, subjective reports of pain remain the same. At this time recommend D/C from PT and pt follow up with her doctor regarding remaining pain. Plan of Care PT Services Indicated D/C from PT to an independent HEP. Follow up mariya Chandler regarding remaining pain.
== END 2023-01-22 13:05 | disposition home or self-care (01) ==
LOC: ANHPT 07:30
PROVIDERS: Visit Provider Family Medicine Sports Medicine
DX: G57.32 Lesion of lateral popliteal nerve, left lower limb (principal); M79.672 Pain in left foot; M79.605 Pain in left leg; M77.42 Metatarsalgia, left foot; M77.52 Other enthesopathy of left foot and ankle
CPT/HCPCS: 97022; 97110; 97112; 97116; 97140; 97530

== ENCOUNTER 2023-03-26 10:10 | Outpatient (CLI) | payer OTHER, SELFPAY ==
--- NOTE | ~2023-03-26 | MM_ITS ---
EXAMINATION: MM screening reinier BI w jackie HISTORY: Screening mammogram, family history of breast cancer in her mother. TECHNIQUE: Craniocaudal and mediolateral oblique 3-D tomosynthesis images were obtained and synthetic 2-D images were generated. CAD analysis was submitted and interpreted. COMPARISON: 03/01/2022, 03/02/2021, 03/02/2020 BREAST PARENCHYMAL COMPOSITION: There are scattered areas of fibroglandular density. FINDINGS: No suspicious mass, calcification, or architectural distortion are identified in either keisha ast to suggest malignancy. There has been no suspicious interval change. IMPRESSION: 1. No mammographic evidence of malignancy. 2. Recommend routine screening mammography in one year. BI-RADS Category 1: Negative Reviewed, dictated and finalized at location A.
== END 2023-03-26 10:11 | disposition home or self-care (01) ==
LOC: ANHIMG 10:18
PROVIDERS: PCP Internal Medicine; Visit Provider Internal Medicine
DX: Z12.31 Encounter for screening mammogram for malignant neoplasm of breast (principal)
CPT/HCPCS: 77063; 77067

== ENCOUNTER 2023-03-31 14:42 | Emergency (ER) | payer OTHER, SELFPAY ==
[2023-03-31 14:53] VITALS: BP 125/65; PULSE 86; RESP 18; TEMP 36.3; O2SAT 97
--- NOTE | 2023-03-31 15:24 | ED.SKABFB ---
HPI - Skin/Abscess/Foreign Bdy General Chief complaint: Skin/Abscess/Foreign Body Stated complaint: burn/rash Time Seen by Provider: 03/31/23 15:04 Source: patient and RN notes reviewed Mode of arrival: ambulatory Limitations: no limitations History of Present Illness HPI narrative: Patient presents today complaining of a rash underneath her left breast that has been present for 3 days, and appeared after she received her mammogram. She is concerned that she may have contracted the staph infection when she got her mammogram. She called the mammogram center today and was told to come to urgent care to have the rash swabbed for staph. Over the weekend she has been trying triamcinolone cream, which has caused the rash to start burning. Related Data Home Medications Medication Instructions Recorded Confirmed atorvastatin 40 mg tablet 40 mg PO DAILY 04/11/20 03/31/23 fexofenadine 60 mg tablet 60 mg PO DAILY 04/11/20 03/31/23 metoprolol succinate 50 mg 50 mg PO DAILY 04/11/20 03/31/23 tablet,extended release 24 hr clopidogrel 75 mg tablet 75 mg PO DAILY 05/04/20 03/31/23 montelukast 10 mg tablet 10 mg PO DAILY 05/04/20 03/31/23 cholecalciferol (vitamin D3) 125 125 mcg PO DAILY 06/06/22 03/31/23 mcg (5,000 unit) tablet (Vitamin D3) pantoprazole 20 mg tablet,delayed 20 mg PO DAILY 06/06/22 03/31/23 release zinc 50 mg tablet 50 mg PO DAILY 06/06/22 03/31/23 acyclovir 400 mg tablet 400 mg PO PRN PRN Rash 03/31/23 03/31/23 Allergies Allergy/AdvReac Type Severity Reaction Status Date / Time corn Allergy Severe Swelling Verified 03/31/23 14:47 of Lip/Tongue/Throat soy Allergy Severe Swelling Verified 03/31/23 14:47 of Lip/Tongue/Throat Sulfa (Sulfonamide Allergy Severe Swelling Verified 03/31/23 14:47 Antibiotics) of Lip/Tongue/Throat wheat Allergy Severe Swelling Verified 03/31/23 14:47 of Lip/Tongue/Throat Penicillins AdvReac Severe Hives Verified 03/31/23 14:47 ibuprofen AdvReac Mild Hives Verified 03/31/23 14:47 Cat Dander Allergy Severe HIVES, Uncoded 03/31/23 14:47 TONGUE SWELLS Review of Systems Review of Systems: CONSTITUTIONAL: Denies body aches, fever, chills, or sweats. EYES: Denies visual changes, redness, or discharge. ENT: Denies rhinorrhea, congestion, sore throat, or otalgia. CARDIOVASCULAR: Denies chest pain, palpitations, or edema. RESPIRATORY: Denies cough or dyspnea. GASTROINTESTINAL: Denies abdominal pain, nausea, vomiting, or diarrhea. GENITOURINARY: Denies dysuria or hematuria. SKIN: + rash under left breast MUSCULOSKELETAL: Denies back pain, joint pain, or myalgia. NEUROLOGIC: Denies headache, numbness, tingling, or weakness. PSYCH: Denies depression or anxiety. [facility] Past Medical History Medical History CAD (coronary artery disease) Cardiovascular disease COPD (chronic obstructive pulmonary disease) GERD (gastroesophageal reflux disease) History of heart attack 2017 Hypertension Seasonal allergies Surgical History Surgical History History of coronary artery stent placement Family History Family History Other Family history non-contributory Social History Social History Smoking packs per day: 1 Smoking cigarettes per day: 20.0 Years smoked: 40 Smoking pack-years: 40.00 Smoking status: Current every day smoker Tobacco type: cigarettes Alcohol intake: current Substance use: never Substance use type: does not use Living arrangements: with family Gender identity (if verbalized by the patient): Female Spiritual care concerns: No Comments At time of signature, I have reviewed and agree with nursing past medical, surgical, social and family history unless oth
== END 2023-03-31 15:28 | disposition home or self-care (01) ==
PROVIDERS: Emergency Provider Nurse Practitioner; PCP Internal Medicine
DX: L30.9 Dermatitis, unspecified (principal); F17.210 Nicotine dependence, cigarettes, uncomplicated; I25.10 Atherosclerotic heart disease of native coronary artery without angina pectoris; J44.9 Chronic obstructive pulmonary disease, unspecified; K21.9 Gastro-esophageal reflux disease without esophagitis; I10 Essential (primary) hypertension; I25.2 Old myocardial infarction; Z95.5 Presence of coronary angioplasty implant and graft
CPT/HCPCS: 87070; 87205; 99213; G0463

== ENCOUNTER 2023-05-04 13:14 | Emergency (ER) | payer OTHER, SELFPAY ==
--- NOTE | ~2023-05-04 | XR_ITS ---
EXAMINATION: XR chest 2V Exam Date/Time: 05/04/2023 15:00 [employer]INE [employer] HISTORY: cough Comparison: 10/31/2022. RESULT: Lines, tubes, and devices: None. Lungs and pleura: Mild reticulonodular opacities and cuffing. Suggestion of hyperinflation. Cardiomediastinal silhouette: Stable. Other: No acute osseous or upper abdominal finding. Stable wedge deformity at T12. Stable grade 1 re trolisthesis at T12-L1. IMPRESSION: Pulmonary opacities may represent bronchiolitis, as can be seen with atypical infection, asthma, aspi ration, and small airways disease. Likely emphysematous change. Reviewed, dictated and finalized at location K. MACHINE FILLER IMPRESSION: Pulmonary opacities may represent bronchiolitis, as can be seen with atypical i nfection, asthma, aspiration, and small airways disease. Likely emphysematous c vel.
[2023-05-04 14:23] VITALS: BP 138/62; PULSE 70; RESP 18; TEMP 36.6; O2SAT 97
--- NOTE | 2023-05-04 14:47 | ED.GENADULT ---
HPI - General Adult General Chief complaint: Upper Respiratory Infection Stated complaint: swollen lymph node Time Seen by Provider: 05/04/23 14:48 Source: patient Mode of arrival: ambulatory Limitations: no limitations History of Present Illness HPI narrative: 8-year-old female patient presents to the [facility] with complaints of a right-sided swollen lymph node that is painful to touch, sore throat and a cough that is worsening. Denies any fevers, body aches or chills. Patient states she has had a small wound on the lobe of her right ear that she has been battling since December of last year. Patient states she was given topical triamcinolone and Neupro sent to treat it which she has been putting on there. Patient states she is here today because she is concerned that there is an infection going on causing the swollen lymph node. Patient is an active smoker and has a history of OK in the past. Patient states she does have an albuterol inhaler at home as well as a fluticasone inhaler for her COPD. Patient denies any fevers, body aches or chills. Denies any abdominal pain, nausea, vomiting or diarrhea. Related Data Home Medications Medication Instructions Recorded Confirmed atorvastatin 40 mg tablet 40 mg PO DAILY 04/11/20 05/04/23 fexofenadine 60 mg tablet 60 mg PO DAILY 04/11/20 05/04/23 metoprolol succinate 50 mg 50 mg PO DAILY 04/11/20 05/04/23 tablet,extended release 24 hr clopidogrel 75 mg tablet 75 mg PO DAILY 05/04/20 05/04/23 montelukast 10 mg tablet 10 mg PO DAILY 05/04/20 05/04/23 cholecalciferol (vitamin D3) 125 125 mcg PO DAILY 06/06/22 05/04/23 mcg (5,000 unit) tablet (Vitamin D3) pantoprazole 20 mg tablet,delayed 20 mg PO DAILY 06/06/22 05/04/23 release zinc 50 mg tablet 50 mg PO DAILY 06/06/22 05/04/23 Allergies Allergy/AdvReac Type Severity Reaction Status Date / Time corn Allergy Severe Swelling Verified 05/04/23 14:36 of Lip/Tongue/Throat soy Allergy Severe Swelling Verified 05/04/23 14:36 of Lip/Tongue/Throat Sulfa (Sulfonamide Allergy Severe Swelling Verified 05/04/23 14:36 Antibiotics) of Lip/Tongue/Throat wheat Allergy Severe Swelling Verified 05/04/23 14:36 of Lip/Tongue/Throat Penicillins AdvReac Severe Hives Verified 05/04/23 14:36 ibuprofen AdvReac Mild Hives Verified 05/04/23 14:36 Cat Dander Allergy Severe HIVES, Uncoded 05/04/23 14:36 TONGUE SWELLS Review of Systems Review of Systems: CONSTITUTIONAL: Denies fever, chills, or sweats. EYES: Denies visual changes, redness, or discharge. ENT: Denies rhinorrhea, congestion, positive sore throat, or otalgia. CARDIOVASCULAR: Denies chest pain, palpitations, or edema. RESPIRATORY: Positive cough denies current dyspnea. GASTROINTESTINAL: Denies abdominal pain, nausea, vomiting, or diarrhea. GENITOURINARY: Denies dysuria or hematuria. SKIN: Denies rash or itching. positive wound to right lobe MUSCULOSKELETAL: Denies back pain, joint pain, or myalgia. NEUROLOGIC: Denies headache, numbness, or weakness. PSYCHIATRIC: Denies anxiety or depression. [facility] Past Medical History Medical History CAD (coronary artery disease) Cardiovascular disease COPD (chronic obstructive pulmonary disease) GERD (gastroesophageal reflux disease) History of heart attack 2017 Hypertension Seasonal allergies Surgical History Surgical History History of coronary artery stent placement Family History Family History Other Family history non-contributory Social History Social History Smoking packs per day: 1 Smoking cigarettes per day: 20.0 Years smoked: 40 Smoking pack-years: 40.00 Smoking status: Current every day smoker Tobacco type: cigarettes Alcohol intake:
== END 2023-05-04 15:40 | disposition home or self-care (01) ==
PROVIDERS: Emergency Provider Nurse Practitioner Family; PCP Internal Medicine
DX: J40 Bronchitis, not specified as acute or chronic (principal); R59.0 Localized enlarged lymph nodes; F17.210 Nicotine dependence, cigarettes, uncomplicated; I25.10 Atherosclerotic heart disease of native coronary artery without angina pectoris; J44.9 Chronic obstructive pulmonary disease, unspecified; K21.9 Gastro-esophageal reflux disease without esophagitis; I10 Essential (primary) hypertension; I25.2 Old myocardial infarction; Z95.5 Presence of coronary angioplasty implant and graft
CPT/HCPCS: 71046; 87081; 87880; 99213; G0463

== ENCOUNTER 2023-08-27 16:56 | Emergency (ER) | payer OTHER, SELFPAY ==
[2023-08-27 17:10] VITALS: BP 144/79; PULSE 81; RESP 16; TEMP 36.2; O2SAT 98
--- NOTE | 2023-08-27 17:37 | ED.URI ---
HPI - URI/Sore Throat General Chief Complaint: Upper Respiratory Infection Stated Complaint: congestion,cough Time Seen by Provider: 08/27/23 17:19 Source: patient and RN notes reviewed Mode of arrival: ambulatory Limitations: no limitations History of Present Illness HPI Narrative: Patient presents today complaining of a one-month history of rhinorrhea, congestion, sneezing, productive cough. She is also complaining of sores in her mouth and on her tongue. She was seen approximately 2.5 weeks ago at her PCPs office for same symptoms and given a prescription for prednisone. States symptoms did not really improve with this treatment and she has not been seen since. History of COPD for which she takes fexofenadine, montelukast, albuterol, Flovent, and Anoro. She has run out of her Flovent. She has also been using Nasonex. Reports she has been wheezing intermittently over the past month as well. Does not see pulmonology. Reports history of chronic thrush for which she has been treated multiple times with nystatin. States it does not fully resolve with this treatment. Related Data Home Medications Medication Instructions Recorded Confirmed atorvastatin 40 mg tablet 40 mg PO DAILY 04/11/20 08/27/23 fexofenadine 60 mg tablet 60 mg PO DAILY 04/11/20 08/27/23 metoprolol succinate 50 mg 50 mg PO DAILY 04/11/20 08/27/23 tablet,extended release 24 hr clopidogrel 75 mg tablet 75 mg PO DAILY 05/04/20 08/27/23 montelukast 10 mg tablet 10 mg PO DAILY 05/04/20 08/27/23 cholecalciferol (vitamin D3) 125 125 mcg PO DAILY 06/06/22 08/27/23 mcg (5,000 unit) tablet (Vitamin D3) pantoprazole 20 mg tablet,delayed 20 mg PO DAILY 06/06/22 08/27/23 release zinc 50 mg tablet 50 mg PO DAILY 06/06/22 08/27/23 albuterol sulfate 90 mcg/actuation inhalation 08/27/23 aerosol inhaler fluticasone propionate 110 1 puff inhalation Q12H 08/27/23 08/27/23 mcg/actuation HFA aerosol inhaler umeclidinium 62.5 mcg-vilanterol inhalation 08/27/23 25 mcg/actuation powdr for inhalation (Anoro Ellipta) Allergies Allergy/AdvReac Type Severity Reaction Status Date / Time corn Allergy Severe Swelling Verified 08/27/23 17:10 of Lip/Tongue/Throat soy Allergy Severe Swelling Verified 08/27/23 17:10 of Lip/Tongue/Throat Sulfa (Sulfonamide Allergy Severe Swelling Verified 08/27/23 17:10 Antibiotics) of Lip/Tongue/Throat wheat Allergy Severe Swelling Verified 08/27/23 17:10 of Lip/Tongue/Throat Penicillins AdvReac Severe Hives Verified 08/27/23 17:10 ibuprofen AdvReac Mild Hives Verified 08/27/23 17:10 Cat Dander Allergy Severe HIVES, Uncoded 08/27/23 17:10 TONGUE SWELLS Review of Systems Review of Systems: CONSTITUTIONAL: Denies body aches, fever, chills, or sweats. EYES: Denies visual changes, redness, or discharge. ENT: Denies sore throat, or otalgia.+ rhinorrhea, congestion, tongue pain and blisters, sneezing CARDIOVASCULAR: Denies chest pain, palpitations, or edema. RESPIRATORY: + cough, wheezing GASTROINTESTINAL: Denies abdominal pain, nausea, vomiting, or diarrhea. GENITOURINARY: Denies dysuria or hematuria. SKIN: Denies rash, itching, or wounds. MUSCULOSKELETAL: Denies back pain, joint pain, or myalgia. NEUROLOGIC: Denies headache, numbness, tingling, or weakness. PSYCH: Denies depression or anxiety. [facility] Past Medical History Medical History CAD (coronary artery disease) Cardiovascular disease COPD (chronic obstructive pulmonary disease) GERD (gastroesophageal reflux disease) History of heart attack 2017 Hypertension Seasonal allergies Surgical History Surgical History History of coronary artery stent placement Family History Family History Other Family history non-contributory So
== END 2023-08-27 17:50 | disposition home or self-care (01) ==
PROVIDERS: Emergency Provider Nurse Practitioner; PCP Internal Medicine
DX: J45.901 Unspecified asthma with (acute) exacerbation (principal); B37.0 Candidal stomatitis; J01.90 Acute sinusitis, unspecified; F17.210 Nicotine dependence, cigarettes, uncomplicated; I25.10 Atherosclerotic heart disease of native coronary artery without angina pectoris; J44.9 Chronic obstructive pulmonary disease, unspecified; K21.9 Gastro-esophageal reflux disease without esophagitis; I10 Essential (primary) hypertension; I25.2 Old myocardial infarction; Z95.5 Presence of coronary angioplasty implant and graft
CPT/HCPCS: 99213; G0463

== ENCOUNTER 2024-07-03 09:03 | Emergency (ER) | payer OTHER, SELFPAY ==
--- NOTE | ~2024-07-03 | XR_ITS ---
EXAMINATION: XR chest 2V DATE: 07/03/2024 09:46 INDICATION: Cough and shortness of breath and chest pain. TECHNIQUE: Frontal and lateral views of the chest were obtained. COMPARISON: Chest 2 views 05/04/2023 FINDINGS: There is mild atelectasis in right lower lung zone. A calcified left lung nodule is consist ent with old granulomatous disease. No pleural effusion or pneumothorax. The heart size is normal. Th ere is a chronic compression fracture in lower thoracic spine. IMPRESSION: 1. Mild atelectasis in right lower lung zone. Reviewed, dictated and finalized at location A. TY BAILIFF
[2024-07-03 09:32] VITALS: BP 115/84; PULSE 86; RESP 16; TEMP 36.2; O2SAT 96
--- NOTE | 2024-07-03 09:37 | ED_ITS ---
HPI - URI/Sore Throat General Chief Complaint: Upper Respiratory Infection Stated Complaint: COUGH/RUNNY NOSE/SINUS/CP/BURNING IN THROAT Time Seen by Provider: 07/03/24 09:35 Source: patient Mode of arrival: ambulatory Limitations: no limitations History of Present Illness HPI Narrative: Simran is a 63-year-old female patient presenting to the clinic today with complaints of cough, runny nose, sinus congestion, chest discomfort with inspiration and burning in her throat. She reports symptoms started on Friday or Friday. Has felt feverish but has not checked her temperature. MD elicited complaint: sore throat and nasal congestion Related Data Home Medications ?Medication ?Instructions ?Recorded ?Confirmed ?Last Taken ?Type atorvastatin 40 mg tablet 40 mg PO DAILY 04/11/20 08/27/23 06/17/22 History fexofenadine 60 mg tablet 60 mg PO DAILY 04/11/20 08/27/23 06/17/22 History metoprolol succinate 50 mg 50 mg PO DAILY 04/11/20 08/27/23 06/17/22 History tablet,extended release 24 hr clopidogrel 75 mg tablet 75 mg PO DAILY 05/04/20 08/27/23 06/13/22 History montelukast 10 mg tablet 10 mg PO DAILY 05/04/20 08/27/23 06/17/22 History cholecalciferol (vitamin D3) 125 125 mcg PO DAILY 06/06/22 08/27/23 06/17/22 History mcg (5,000 unit) tablet (Vitamin D3) pantoprazole 20 mg tablet,delayed 20 mg PO DAILY 06/06/22 08/27/23 06/17/22 History release zinc 50 mg tablet 50 mg PO DAILY 06/06/22 08/27/23 06/17/22 History albuterol sulfate 90 mcg/actuation inhalation 08/27/23 Unknown History aerosol inhaler fluticasone propionate 110 1 puff inhalation Q12H 08/27/23 08/27/23 Unknown History mcg/actuation HFA aerosol inhaler umeclidinium 62.5 mcg-vilanterol inhalation 08/27/23 Unknown History 25 mcg/actuation powdr for inhalation (Anoro Ellipta) Allergies Allergy/AdvReac Type Severity Reaction Status Date / Time corn Allergy Severe Swelling Verified 07/03/24 09:33 of Lip/Tongue/Throat soy Allergy Severe Swelling Verified 07/03/24 09:33 of Lip/Tongue/Throat Sulfa (Sulfonamide Allergy Severe Swelling Verified 07/03/24 09:33 Antibiotics) of Lip/Tongue/Throat wheat Allergy Severe Swelling Verified 07/03/24 09:33 of Lip/Tongue/Throat Penicillins AdvReac Severe Hives Verified 07/03/24 09:33 ibuprofen AdvReac Mild Hives Verified 07/03/24 09:33 Cat Dander Allergy Severe HIVES, Uncoded 07/03/24 09:33 TONGUE SWELLS Review of Systems Review of Systems: Pertinent positives per HPI. Patient denies any rash, headache, visual changes, dizziness, palpitations, nausea, vomiting, diarrhea, constipation, abdominal pain, or any urinary issues. [facility] Past Medical History Medical History CAD (coronary artery disease) Cardiovascular disease COPD (chronic obstructive pulmonary disease) GERD (gastroesophageal reflux disease) History of heart attack 2017 Hypertension Seasonal allergies Surgical History Surgical History History of coronary artery stent placement Family History Family History Other Family history non-contributory Social History Social History Smoking packs per day: 1 Smoking cigarettes per day: 20.0 Years smoked: 40 Smoking pack-years: 40.00 Smoking status: Current every day smoker Tobacco type: cigarettes Alcohol intake: current Substance use: never Substance use type: does not use Living arrangements: with family Gender identity (if verbalized by the patient): Female Spiritual care concerns: No Comments At the time of my signature, I reviewed and agree with the nursing past medical, surgical, social, and family history. There is no relevant family history pertinent to the patient complaint. Exam Narrative: General: Well-developed, well nourished, in no apparent distress Head: Normocephalic, atraumatic Eyes: Pupils equally round and reactive to light bilaterally, EOM intact, sclera and conjunctive clear, no discharge, lids normal Ears: TMs intact and congested, ear canals clear, no drainage, grossly hearing normal. Nose: Nares patent, clear nasal discharge, no inflammation, no sinus tenderness. Mouth: Oral pharynx without lesions or masses, good dentition, MMM. Neck: Supple, trachea midline, no enlargement of anterior or posterior cervical nodes, no thyroid masses or goiter palpable. Cardio: Regular rate and rhythm, s1 and s2 normal, no murmur appreciated. Resp: Lung sounds diminished in the bases, no rhonchi, rales, wheezing or rubs Course Course Emergency Course: Portions of this record may have been created with voice recognition software. Level of Care: Express Care Visit Vital Signs Vital signs: Vital Signs Temperature 36.2 C L 07/03/24 09:32 Pulse Rate 86 07/03/24 09:32 Respiratory Rate 16 07/03/24 09:32 Blood Pressure 115/84 07/03/24 09:32 Pulse Oximetry 96 07/03/24 09:32 Temperature 36.2 C L 07/03/24 09:32 Pulse Rate 86 07/03/24 09:32 Respiratory Rate 16 07/03/24 09:32 Blood Pressure 115/84 07/03/24 09:32 Pulse Oximetry 96 07/03/24 09:32 Vital signs reviewed MDM - URI/Sore Throat MDM Narrative Medical decision making narrative: At the time of visit patient is resting comfortably on the exam table. Patient appears to be nontoxic. Labs: Influenza testing was positive for influenza A. COVID testing was negative Diagnostics: Chest x-ray is negative for any acute cardiopulmonary process. Plan: Patient has influenza A. Supportive measures were discussed with the patient and they voiced understanding discharge instructions and agrees to treatment plan. Return precautions reviewed Differential Diagnosis Differential diagnosis: Likely upper respiratory infection, otitis media, sinusitis, viral infection, bronchitis, influenza, pharyngitis and other (COVID) Lab Data Labs: Lab Results 07/03/24 Range/Units 09:39 POC Influenza A Ag Positive (Negative) POC Influenza B Ag Negative (Negative) Imaging Data Radiologist's impression: ITS Impressions Chest X-Ray 07/03/24 09:48 IMPRESSION: 1. Mild atelectasis in right lower lung zone. Discharge Plan Discharge Clinical Impression: Influenza A Patient Disposition: Home, Self-Care Condition: Stable Instructions: Antibiotic Form, Influenza (ED) Additional Instructions: Chest x-ray is if for any pneumonia. Shows some mild atelectasis in the right lower lung zone Influenza A testing was positive. COVID test was negative May take Mucinex during the day time for cough May take Tessalon Perles at night for cough to help you sleep Increase fluids and stay well hydrated Tylenol/motrin for pain/fever Flonase and OTC antihistamines as directed Vicks vapor rub to open sinuses Sinus rinses for congestion Cepacol spray, cough drops, throat lozenges, warm tea with honey/lemon, gargle salt water to soothe throat BRAT diet for diarrhea Clear liquids x 24 hours then advance as tolerated for nausea/vomiting Go to the ED if you develop a worsening in your condition- high fever not controlled by Tylenol or Motrin, dehydration, weakness, lethargy, shortness of breath, or chest pain. Follow up with your PCP in 3-5 days if symptoms persist. Patient Language: Croatian Prescriptions: New benzonatate 200 mg capsule 200 mg PO TID 7 Days Qty: 21 0RF No Action atorvastatin 40 mg tablet 40 mg PO DAILY fexofenadine 60 mg tablet 60 mg PO DAILY metoprolol succinate 50 mg tablet extended release 24 hr 50 mg PO DAILY clopidogrel 75 mg Tablet 75 mg PO DAILY montelukast 10 mg Tablet 10 mg PO DAILY albuterol sulfate 90 mcg/actuation HFA aerosol inhaler INHALATION fluticasone propionate [Flovent HFA] 110 mcg/actuation Hfa Aerosol Inhaler 1 puff INHALATION Q12H Anoro Ellipta 62.5-25 mcg/actuation blister with device INHALATION clotrimazole 10 mg juni 10 mg mucous membrane TID 14 Days Qty: 42 0RF levofloxacin 500 mg tablet 500 mg PO DAILY 5 Days Qty: 5 0RF fluticasone propionate 110 mcg/actuation HFA aerosol inhaler 1 inh inhalation Q12H Qty: 12 0RF pantoprazole 20 mg tablet,delayed release (DR/EC) 20 mg PO DAILY zinc 50 mg Tablet 50 mg PO DAILY cholecalciferol (vitamin D3) [Vitamin D3] 125 mcg (5,000 unit) Tablet 125 mcg PO DAILY Follow-up/Referrals: Tyrone,Maria Luisa Rose MD [Primary Care Provider] - Stand Alone Forms: Work/School Release IP Time of Disposition: 10:03 Quality NIHSS Nursing Documentation ED NIHSS nursing documentation: reviewed/agree
[2024-07-03 09:40] LABS: EDINFLUASCREEN Positive (Negative); EDINFLUBSCREEN Negative (Negative)
== END 2024-07-03 10:05 | disposition home or self-care (01) ==
PROVIDERS: Emergency Provider Nurse Practitioner Family; PCP Internal Medicine
DX: J10.1 Influenza due to other identified influenza virus with other respiratory manifestations (principal); F17.210 Nicotine dependence, cigarettes, uncomplicated; I25.10 Atherosclerotic heart disease of native coronary artery without angina pectoris; J44.9 Chronic obstructive pulmonary disease, unspecified; I10 Essential (primary) hypertension; I25.2 Old myocardial infarction; K21.9 Gastro-esophageal reflux disease without esophagitis; Z95.5 Presence of coronary angioplasty implant and graft
CPT/HCPCS: 71046; 87804; 99213; G0463

== ENCOUNTER 2024-12-04 15:00 | Emergency (ER) | payer OTHER, SELFPAY ==
[2024-12-04 15:29] VITALS: BP 159/89; PULSE 82; RESP 18; TEMP 36.6; O2SAT 98
--- NOTE | 2024-12-04 15:40 | ED_ITS ---
HPI - URI/Sore Throat General Chief Complaint: Upper Respiratory Infection Stated Complaint: COUGH/EAR & THROAT BURNING/FACIAL SWELLING Time Seen by Provider: 12/04/24 15:40 Source: patient, RN notes reviewed and old records reviewed Mode of arrival: ambulatory Limitations: no limitations History of Present Illness HPI Narrative: 64-year-old female with a history of COPD presents with 2 week history of a cough, started with ear burning, throat burning today prior to arrival. States that she did use her inhaler this morning. No other treatment prior to arrival Related Data Home Medications ?Medication ?Instructions ?Recorded ?Confirmed ?Last Taken ?Type atorvastatin 40 mg tablet 40 mg PO DAILY 04/11/20 08/27/23 06/17/22 History fexofenadine 60 mg tablet 60 mg PO DAILY 04/11/20 08/27/23 06/17/22 History metoprolol succinate 50 mg 50 mg PO DAILY 04/11/20 08/27/23 06/17/22 History tablet,extended release 24 hr clopidogrel 75 mg tablet 75 mg PO DAILY 05/04/20 08/27/23 06/13/22 History montelukast 10 mg tablet 10 mg PO DAILY 05/04/20 08/27/23 06/17/22 History cholecalciferol (vitamin D3) 125 125 mcg PO DAILY 06/06/22 08/27/23 06/17/22 History mcg (5,000 unit) tablet (Vitamin D3) pantoprazole 20 mg tablet,delayed 20 mg PO DAILY 06/06/22 08/27/23 06/17/22 History release zinc 50 mg tablet 50 mg PO DAILY 06/06/22 08/27/23 06/17/22 History albuterol sulfate 90 mcg/actuation inhalation 08/27/23 Unknown History aerosol inhaler fluticasone propionate 110 1 puff inhalation Q12H 08/27/23 08/27/23 Unknown History mcg/actuation HFA aerosol inhaler umeclidinium 62.5 mcg-vilanterol inhalation 08/27/23 Unknown History 25 mcg/actuation powdr for inhalation (Anoro Ellipta) Allergies Allergy/AdvReac Type Severity Reaction Status Date / Time corn Allergy Severe Swelling Verified 12/04/24 15:29 of Lip/Tongue/Throat soy Allergy Severe Swelling Verified 12/04/24 15:29 of Lip/Tongue/Throat Sulfa (Sulfonamide Allergy Severe Swelling Verified 12/04/24 15:29 Antibiotics) of Lip/Tongue/Throat wheat Allergy Severe Swelling Verified 12/04/24 15:29 of Lip/Tongue/Throat Penicillins AdvReac Severe Hives Verified 12/04/24 15:29 ibuprofen AdvReac Mild Hives Verified 12/04/24 15:29 Cat Dander Allergy Severe HIVES, Uncoded 12/04/24 15:29 TONGUE SWELLS Review of Systems Review of Systems: All systems reviewed & are unremarkable except as noted in HPI and below Constitutional: Constitutional: Reports no additional constitutional complaints ENT: Reports as per HPI Cardiovascular: Cardiovascular: Reports no additional cardiovascular complaints, Denies chest pain and Denies dyspnea Respiratory: Respiratory: Reports as per HPI, Reports chest congestion, Reports cough, Denies dyspnea and Reports wheezing Musculoskeletal: Musculoskeletal: Reports no additional musculoskeletal complaints Integumentary/Breasts: Skin/Breast: Reports system reviewed and no additional complaints, except as docu PMFSH Past Medical History Medical History COPD (chronic obstructive pulmonary disease) History of heart attack 2016 CAD (coronary artery disease) Seasonal allergies GERD (gastroesophageal reflux disease) Cardiovascular disease Hypertension Surgical History Surgical History History of coronary artery stent placement Family History Family History Other Family history non-contributory Social History Social History Smoking packs per day: 1 Smoking cigarettes per day: 20.0 Years smoked: 40 Smoking pack-years: 40.00 Smoking status: Current every day smoker Tobacco type: cigarettes Alcohol intake: current Substance use: never Substance use type: does not use Living arrangements: with family Gender identity (if verbalized by the patient): Female Spiritual care concerns: No Comments At the time of my signature, I reviewed and agree with the nursing past medical, surgical, social, and family history. There is no relevant family history pertinent to the patient complaint. Exam Const: General: cooperative, no acute distress, well developed, alert, ill appearing chronically and well nourished Nutritional Appearance: well nourished Orientation/consciousness: patient oriented x3 Limitations: no limitations HENMT: Head: normal to inspection Ears: hearing grossly normal bilaterally, external ears normal, TM's normal bilaterally, EAC's normal, mastoids normal and no periauricular adenopathy Face/Nose/Sinus: Normal external nose present Mouth: Yes Normal oral and palatal mucosa present, Yes lip normal, Yes tongue normal and Yes moist mucous membranes Teeth and gingiva: fair dentition Throat: posterior oropharynx normal, uvula midline and no uvular edema Eyes: General: appearance normal, both eyes and all related structures Alignment and Position: alignment normal Neck: Neck: normal visual inspection, full ROM, no lymphadenopathy and no meningeal signs Chest: Chest palpation & inspection: normal inspection of the chest Resp: Effort & Inspection: normal respiratory effort and able to speak in complete sentences Auscultation: no crackles, no rales, no rhonchi and wheezes expiratory wheezes, inspiratory wheezes and scattered wheezes Cardio: Rate: regular rate Skin: General skin exam: normal color and no rashes or lesions noted Neuro: General: patient oriented x3, gait normal, moves all extremities and no meningeal signs Cognition (Neuro): normal cognition Speech: normal speech Gait exam (Neuro): Normal gait present Extrem: General: normal to inspection, full ROM, capillary refill normal and normal gait Psych: Appearance: grossly normal and well kempt Mental Status: mental status grossly normal Speech and movement: Normal speech and movement present and Clear speech present Affect: normal affect Attitude: cooperative Course Course Level of Care: Express Care Visit Vital Signs Vital signs: Vital Signs Temperature 98 F 12/04/24 15:29 Pulse Rate 82 12/04/24 15:29 Respiratory Rate 18 12/04/24 15:29 Blood Pressure 159/89 H 12/04/24 15:29 Pulse Oximetry 98 12/04/24 15:29 Temperature 98 F 12/04/24 15:29 Pulse Rate 82 12/04/24 15:29 Respiratory Rate 18 12/04/24 15:29 Blood Pressure 159/89 H 12/04/24 15:29 Pulse Oximetry 98 12/04/24 15:29 Reviewed MDM - URI/Sore Throat MDM Narrative Medical decision making narrative: Patient sitting in exam room. Patient is nontoxic, vitals are stable except blood pressure mildly elevated. Currently week on blood pressure medication. Patient presents 2 week history of increasing cough, shortness of breath. Also reports ear burning and throat burning today. No acute findings noted on ears or throat. Wheezing noted on exam both inspiratory expiratory of more consistent with COPD exacerbation. Patient appropriate for outpatient treatment with strict signs and symptoms to proceed to the emergency room. Discharge instructions reviewed with patient, as well as provided in writing per nursing staff. The instructions also include specific and strict return/GO TO THE ER as well as f/u information. All questions have been answered, and the patient deny any further questions with discharge and discharge plan. Some parts of this dictation were generated by voice recognition software and may contain typographical and/or grammatical inaccuracies. Critical Care Time Critical Care Time Critical Care Time: No Discharge Plan Discharge Clinical Impression: Acute exacerbation of chronic obstructive pulmonary disease (COPD), Earache on right Patient Disposition: Home Condition: Stable Instructions: Antibiotic Form, Chronic Bronchitis (DC), Earache (ED) Additional Instructions: Use albuterol every 4-6 hours while awake. Take prednisone as prescribed Follow-up with primary care provider Take Tylenol as needed for ear pain Today your blood pressure was 159/89. Is highly recommended you follow-up with your primary care provider within the next 2 weeks to have this rechecked. For new or worsening symptoms go directly to the emergency room Patient Language: East Tim[place]se Prescriptions: New prednisone 20 mg tablet See Rx Instructions .Route .COMPLEX Qty: 9 0RF Rx Instructions: Take 40 mg daily for 3 days, 20 mg daily for 3 days doxycycline monohydrate 100 mg tablet 100 mg PO BID Qty: 14 0RF No Action atorvastatin 40 mg tablet 40 mg PO DAILY fexofenadine 60 mg tablet 60 mg PO DAILY metoprolol succinate 50 mg tablet extended release 24 hr 50 mg PO DAILY clopidogrel 75 mg Tablet 75 mg PO DAILY montelukast 10 mg Tablet 10 mg PO DAILY albuterol sulfate 90 mcg/actuation HFA aerosol inhaler INHALATION fluticasone propionate [Flovent HFA] 110 mcg/actuation Hfa Aerosol Inhaler 1 puff INHALATION Q12H Anoro Ellipta 62.5-25 mcg/actuation blister with device INHALATION clotrimazole 10 mg juni 10 mg mucous membrane TID 14 Days Qty: 42 0RF levofloxacin 500 mg tablet 500 mg PO DAILY 5 Days Qty: 5 0RF fluticasone propionate 110 mcg/actuation HFA aerosol inhaler 1 inh inhalation Q12H Qty: 12 0RF benzonatate 200 mg capsule 200 mg PO TID 7 Days Qty: 21 0RF pantoprazole 20 mg tablet,delayed release (DR/EC) 20 mg PO DAILY zinc 50 mg Tablet 50 mg PO DAILY cholecalciferol (vitamin D3) [Vitamin D3] 125 mcg (5,000 unit) Tablet 125 mcg PO DAILY Follow-up/Referrals: Tyrone,Maria Luisa Rose MD [Primary Care Provider] - 2 Weeks ([facility] care follow up ) Time of Disposition: 15:55
== END 2024-12-04 16:11 | disposition home or self-care (01) ==
PROVIDERS: Emergency Provider Nurse Practitioner; PCP Internal Medicine
DX: J44.1 Chronic obstructive pulmonary disease with (acute) exacerbation (principal); H92.01 Otalgia, right ear; I25.10 Atherosclerotic heart disease of native coronary artery without angina pectoris; I10 Essential (primary) hypertension; I25.2 Old myocardial infarction; F17.210 Nicotine dependence, cigarettes, uncomplicated
CPT/HCPCS: 99213; G0463

== ENCOUNTER 2025-03-31 09:46 | Outpatient (CLI) | payer OTHER, SELFPAY ==
--- NOTE | ~2025-03-31 | MM_ITS ---
EXAMINATION: MM screening reinier BI w jackie HISTORY: Screening TECHNIQUE: Craniocaudal and mediolateral oblique 3-D tomosynthesis images were obtained and synthetic 2-D images were generated. CAD analysis was submitted and interpreted. COMPARISON: Comparison to multiple prior studies sequentially, with oldest reviewed study dated , 03/02/2020 BREAST PARENCHYMAL COMPOSITION: There are scattered areas of fibroglandular density. FINDINGS: There is no evidence of suspicious mass, calcification, or architectural distortion to suggest malignancy in either breast. IMPRESSION: 1. No mammographic evidence of malignancy. 2. Recommend routine screening mammography in one year. BI-RADS Category 1: Negative Reviewed, dictated and finalized at location B. [facility]
--- OUTSIDE RECORDS SUMMARY | 2025-03-31 14:23 | XMS_ITS | Encounter Summary ---
Author Organization [facility] Healthcare Address [address] [place] [id number] Care Team Providers Care Switching Clerk Name Role Phone Maria Luisa Hansen MD Primary Care Provider Reason for Referral * MRI/CAT/PET Scan (Routine) - Closed Specialty Diagnoses / Procedures Referred By Javierac t Referred To Contact Radiology Diagnoses Tobacco user Procedures CT Lung Cancer Screening Maria Luisa Hansen MD [address] [place] [address] Phone: tel: fax: [address] [phone] Referral ID Status Reason Start Date Expiration Date Visits Re quested Visits Authorized [id number] Closed 03/16/2025 03/16/2026 1 1 RNATIONAL SALES REPRESENTATIVE Reason for Visit * MRI/CAT/PET Scan (Routine) - Closed Specialty Diagnoses / Procedures Referred By Contac t Referred To Contact Radiology Diagnoses Tobacco user Procedures CT Lung Cancer Screening Maria Luisa Hansen MD [address] [place] [address] Phone: tel: fax: [address] [phone] Referral ID Status Reason Start Date Expiration Date Visits Re quested Visits Authorized [id number] Closed 03/16/2025 03/16/2026 1 1 Encounter Details Date Type Department Care Team (Late st Contact Info) Description 03/31/2025 2:23 PM INTERNATIONAL SALES REPRESENTATIVE Hospital Encounter [facility] Medical Office Building [address] [facility] [place] [address] Tobacco user Social History Tobacco Use Types Packs/Day Years Used Date Smoking Tobacco: Every Day Cigarettes 0.5 48.8 Started: 1974 Smokeless Tobacco: Never Comments:Hx obtained from visit note Alcohol Use Standard Drinks/Week Comments Yes 0 (1 standard drink = 0.6 oz pur e alcohol) very little AUDIT-C Answer Date Recorded Q1: How often do you have a drink containing alc ohol? Monthly or less 09/09/2024 Q2: How many drinks containi ng alcohol do you have on a typical day when you are drinking? 1 or 2 09/09/2024 Q3: How often do you have si x or more drinks on one occasion? Never 09/09/2024 PHQ-2 Answer Date Recorded PHQ-2 Total Score (If total score is 3 or more points, staff should administer the PHQ-9) 0 03/16/2025 Hunger Vital Sign Answer Date Recorded Within the past 12 months, y ou worried that your food would run out before you got the money to buy more. Never true 09/10/19 25 Within the past 12 months, t he food you bought just didn't last and you didn't have money to get more. Never true 09/09/2024 Comments Unknown Sex and Gender Information Value Date Recorded Sex Assigned at Not on file Legal Sex Female 7:55 PM INTERNATIONAL SALES REPRESENTATIVE Gender Identity Not on file Sexual Orientation Not on file documented as of this encounter Last Filed Vital Signs Vital Sign Reading Time Taken Comments Blood Pressure - - Pulse - - Temperature - - Respiratory Rate - - Oxygen Saturation - - Inhaled Oxygen Concentration - - Weight 78 kg (172 lb) 03/31/2025 2:39 PM INTERNATIONAL SALES REPRESENTATIVE Height 160 cm (5' 3) 03/31/2025 2:39 PM INTERNATIONAL SALES REPRESENTATIVE Body Mass Index 30.47 03/31/2025 2:39 PM INTERNATIONAL SALES REPRESENTATIVE documented in this encounter Plan of Treatment Not on file documented as of this encounter Procedures Procedure Name Priority Date/Time Associated Diagnosis Comments CT LUNG CANCER SCREENING Schedule Routine, Read Routine (OP Routine) 03/31/2025 2:39 PM INTERNATIONAL SALES REPRESENTATIVE Tobacco user documented in this encounter Results * CT Lung Cancer Screening (03/31/2025 2:39 PM INTERNATIONAL SALES REPRESENTATIVE) Anatomical Region Laterality Modality Chest N/A Computed Tomogra phy 03/31/2025 4:18 PM INTERNATIONAL SALES REPRESENTATIVE Impressions 03/31/2025 4:18 PM INTERNATIONAL SALES REPRESENTATIVE 1. LungRADS Category 2 (benign) . Recommend Low dose Screening CT of chest in 12 months. LungRADS Categories: 1 - Negative (no nodules, or only benign calcified or fat-containing nodules) 2 - Benign Appearance or Behavior (nodules with very low likelihood of becoming a clinically active cancer due to size or lack of growth) 3 - Probably Benign (probably benign findings-short term follow up suggested; includes nodules with a low likelihood of becoming a clinically active cancer) 4A,4B,4X - Suspicious (category 3 or 4 nodules with findings for which additional diagnostic testing and/or tissue sampling is recommended) S - Other (clinically significant or potentially clinically significant findings (non-lung cancer) C - Prior Lung Cancer (modifier for patients with a prior diagnosis of lung cancer who return to screening) Electronically signed by: Ana Laura Smith MD Narrative 03/31/2025 4:18 PM INTERNATIONAL SALES REPRESENTATIVE EXAMINATION: Lung cancer screening CT of the Chest without intravenous contrast HISTORY: Lung Cancer Screening TECHNIQUE: Low radiation dose chest protocol. No intravenous contrast. Reconstructed slice width 1.[address] Dose Index 2.3 mGy. Dose-length product 91 mGy-cm. COMPARISON: March 29, 2024. FINDINGS: Lung nodules or findings of lung cancer: There is an unchanged focal nodular area of atelectasis or scar in the lingula, measuring up to 2.3 x 1.4 cm. There are also areas of atelectasis/scar in the right lung base. No new nodules are appreciated. Smoking related lung disease: Respiratory bronchiolitis. Other findings: Central airways: Widely patent. Lymph nodes: There is no lymphadenopathy in the chest. Heart and Great vessels: The heart size is normal. There is coronary atherosclerosis. There is lipomatous hypertrophy of the interatrial septum. There is no pericardial fluid collection. Osseous and body wall: There is minimal multilevel disc degeneration of the thoracic spine. There are no concerning osteolytic or osteoblastic lesions. There is an old fracture of the sternum. Procedure Note Ana Laura Smith MD - 03/31/2025 EXAMINATION: Lung cancer screening CT of the Chest without intravenous contrast HISTORY: Lung Cancer Screening TECHNIQUE: Low radiation dose chest protocol. No intravenous contrast. Reconstructed slice width 1.[address] Dose Index 2.3 mGy. Dose-length product 91 mGy-cm. COMPARISON: March 29, 2024. FINDINGS: Lung nodules or findings of lung cancer: There is an unchanged focal nodular area of atelectasis or scar in the lingula, measuring up to 2.3 x 1.4 cm. There are also areas of atelectasis/scar in the right lung base. No new nodules are appreciated. Smoking related lung disease: Respiratory bronchiolitis. Other findings: Central airways: Widely patent. Lymph nodes: There is no lymphadenopathy in the chest. Heart and Great vessels: The heart size is normal. There is coronary atherosclerosis. There is lipomatous hypertrophy of the interatrial septum. There is no pericardial fluid collection. Osseous and body wall: There is minimal multilevel disc degeneration of the thoracic spine. There are no concerning osteolytic or osteoblastic lesions. There is an old fracture of the sternum. IMPRESSION: 1. LungRADS Category 2 (benign) . Recommend Low dose Screening CT of chest in 12 months. LungRADS Categories: 1 - Negative (no nodules, or only benign calcified or fat-containing nodules) 2 - Benign Appearance or Behavior (nodules with very low likelihood of becoming a clinically active cancer due to size or lack of growth) 3 - Probably Benign (probably benign findings-short term follow up suggested; includes nodules with a low likelihood of becoming a clinically active cancer) 4A,4B,4X - Suspicious (category 3 or 4 nodules with findings for which additional diagnostic testing and/or tissue sampling is recommended) S - Other (clinically significant or potentially clinically significant findings (non-lung cancer) C - Prior Lung Cancer (modifier for patients with a prior diagnosis of lung cancer who return to screening) Electronically signed by: Ana Laura Smiht MD Maria Luisa Hansen MD IMG CT PROCED URES Final Result documented in this encounter Visit Diagnoses Diagnosis Tobacco user Tobacco use disorder documented in this encounter Care Teams Switching Clerk Relationship Specialty Start Date End Date Maria Luisa Hansen MD [address] [place] [id number] PCP - General Internal Medicine 12/24/22 documented as of this encounter
--- OUTSIDE RECORDS SUMMARY | 2025-03-31 18:14 | XMS_ITS | Encounter Summary ---
Author Organization [facility] Address [address] [place] [address] Care Team Providers Care Customer Engineer Name Role Phone Trevor Negrete MD Unavailable [phone] Lori Gibbs DO Unavailable [phone] Maria Luisa Hansen MD Primary Care Provider Encounter Details Date Type Department Care Team (Late Contact Info) Description 04/05/2022 Telephone [facility] [address] [place] [address] [phone] Danuta Osorio MD [address] [place] [address] [phone] Social History Tobacco Use Types Packs/Day Years Used Date Smoking Tobacco: Some Days Cigarettes Smokeless Tobacco: Never Alcohol Use Standard Drinks/Week Comments Not Currently 0 (1 standard drink = 0.6 oz pur e alcohol) PHQ-2 Answer Date Recorded PHQ2 TOTAL SCORE 0 06/21/2021 Comments No Sex and Gender Information Value Date Recorded Sex Assigned at Not on file Legal Sex Female 6:18 AM ENTERTAINMENT DIRECTOR Gender Identity Not on file Sexual Orientation Not on file documented as of this encounter Plan of Treatment Upcoming Encounters Date Type Department Care Team (Late st Contact Info) Description 06/13/2025 12:45 PM ENTERTAINMENT DIRECTOR Office Visit [facility] [address] [facility] [address] [place] [address] Trevor Negrete MD [address] [facility] [address] [place] [address] 09/29/2025 10:45 AM CDT Office Visit [facility] [address] [place] [address] [address] [place] [phone] Danuta Osorio MD [address] [place] [address] [address] [place] [address] documented as of this encounter Visit Diagnoses Not on filedocumented in this encounter Care Teams Customer Engineer Relationship Specialty Start Date End Date Maria Luisa Hansen MD [address] [place] [id number] PCP - General Internal Medicine 10/25/22 Trevor Negrete MD [address] [place] [address] [address] [place] [address] Cardiology 01/22/19 Lori Gibbs DO [address] [facility] [address] [place] [id number] Urology 01/22/19 documented as of this encounter
--- OUTSIDE RECORDS SUMMARY | 2025-03-31 18:14 | XMS_ITS | Clinical Summary ---
Author Organization [facility] [place] [address] Address [address] [place] [address] Care Team Providers Care Analytics Director Name Role Phone Maria Luisa Hansen MD Primary Care Provider Allergies Active Allergy Reactions Criticality Noted Date Comments [place] Hives Medium Cephalexin Unknown,Other (See comments) Low 01/30/2023 [place] Hives Medium [place] Extract Unknown,Other (See comments) Low 12/04/2022 Ibuprofen Hives,Other (See comments) Medium 12/04/2022 Mold Unknown 12/12/2016 Penicillins Hives,Other (See comments) Medium 12/04/2022 Prochlorperazine Hives Medium Soy Hives,Itching,Other (See comments) Medium 02/24/2020 Sulfa (Sulfonamide Antibiotics) Unknown,Other (See comments) Low 12/12/2016 Wheat Unknown,Other (See comments) Low 01/30/[address] (PROTONIX) 40 mg EC tablet Take 1 tablet (40 mg total) by mouth daily Active clopidogrel (PLAVIX) 75 mg tablet TAKE ONE TABLET BY MOUTH ONCE DAILY. DON'T STOP UNLESS TOLD BY RE[employer] 90 tablet 1 018 Active zinc gluconate 50 mg tablet Take 1 capsule by mouth daily Taking every other day Active atorvastatin (LIPITOR) 40 mg tablet Take 1 tablet (40 mg total) by mouth daily 023 Active cholecalciferol (VITAMIN D-3) 5,000 unit tablet Take 1 tablet (5,000 Units total) by mouth daily Active metoprolol XL (TOPROL-XL) 50 mg extended release tablet Take 1 tablet (50 mg total) by mouth daily 023 Active azelastine (ASTELIN) 137 mcg (0.1 %) nasal spray Administer 1 spray into each nostril 2 (two) times a day Use in each nostril as directed Active mupirocin (BACTROBAN) 2 % ointmentIndicati ons:Skin infection Apply topically 3 (three) times a day 22 g 024 Active olopatadine (PATADAY) 0.2 % ophthalmic solutionIndicati ons:Allergic Conjunctivitis Administer 1 drop into both eyes daily 2.5 mL 024 Active triamcinolone (NASACORT) 55 mcg nasal inhaler Administer 2 sprays into each nostril daily 16.9 mL 024 Active gentamicin (GARAMYCIN) 0.1 % ointment Apply topically 3 (three) times a day Apply inside ear 15 g 024 Active gabapentin (NEURONTIN) 100 mg capsule Take 1 capsule (100 mg total) by mouth daily 024 Active nicotine (NICODERM CQ) [address] 21 mg on the skin daily 024 Active clotrimazole (MYCELEX) 10 mg juni DISSOLVE 1 TABLET BY MOUTH FIVE TIMES DAILY FOR 7 DAYS 35 Juni 025 Active benzonatate (TESSALON) 200 mg capsule Take 1 capsule (200 mg total) by mouth 3 (three) times a day 025 Active montelukast (SINGULAIR) 10 mg tablet TAKE 1 TABLET BY MOUTH EVERY DAY NIGHTLY 90 tablet 3 025 Active hydrocortisone 2.5 % ointmentIndicati ons:Intertrigo Apply topically 2 (two) times a day Mix with ketoconazole cream to apply twice daily to region under the breast 30 g 025 Active ketoconazole (NIZORAL) 2 % creamIndications :Intertrigo Apply topically 2 (two) times a day Mix with hydrocortisone cream and apply to region under breast 30 g 025 Active triamcinolone (KENALOG) 0.1 % ointmentIndicati ons:Prurigo nodularis Apply topically 2 (two) times a day as needed for rash Apply to rash on back and in ear when itchy and red. 80 g 2 Active Trelegy Ellipta 100-62.5-25 mcg inhaler Inhale 1 puff by mouth once daily 60 each Active albuterol HFA (PROVENTIL HFA,VENTOLIN HFA,PROAIR HFA) 90 mcg/actuation inhaler INHALE 2 PUFFS BY MOUTH EVERY 6 HOURS NEEDED FOR WHEEZING 18 g Active valACYclovir (VALTREX) 1 gram tablet Take 2 tabs (2000 mg) 2 times a days for 1 day. 4 tablet 5 Active fluconazole (DIFLUCAN) 200 mg tablet Take 1 tablet (200 mg total) by mouth daily 10 tablet Active fexofenadine (ORLANDO) 60 mg tablet Take 1 tablet by mouth once daily 90 tablet Active valACYclovir (VALTREX) 1 gram tablet Take 2 tabs (2000 mg) 2 times a days for 1 day. 4 tablet 5 024 2024 Discontinued(R eorder) fluconazole (DIFLUCAN) 200 mg tablet Take 1 tablet (200 mg total) by mouth daily 10 tablet 024 2024 Discontinued(R eorder) fexofenadine (ORLANDO) 60 mg tablet Take 1 tablet (60 mg total) by mouth daily 90 tablet 1 025 2024 Discontinued levoFLOXacin (LEVAQUIN) 500 mg tablet Take 1 tablet (500 mg total) by mouth daily for 10 days 7 tablet 2024 Discontinued(R eorder) predniSONE (DELTASONE) 20 mg tablet Take 2 tablets (40 mg) by mouth daily for 5 days 10 tablet 025 2024 levoFLOXacin (LEVAQUIN) 500 mg tablet Take 1 tablet (500 mg total) by mouth daily for 7 days 7 tablet 025 2024 Active Problems Problem Noted Date Diagnosed Date Shortness of breath 03/21/2025 Atherosclerosis of aorta 09/30/2023 Idiopathic peripheral neuropathy 12/30/2022 Ulnar neuropathy 12/30/2022 Overview (12/30/2022): Last Assessment & Plan: - Referral to PT/OT - Re-evaluate next 6 mo visit Adrenal mass 12/21/2020 Essential hypertension 04/14/2019 Overview (12/30/2022): Last Assessment & Plan: Stable, continue current regimen. Assessment & Plan (02/14/2023 12:11 PM CDT): Impression: Chronic and stable. Plan: Continue metoprolol Multiple benign melanocytic nevi of upper and lower extremities and trunk 12/03/[address] elevation myocardial infarction (S [facility]) 04/27/2018 Overview (12/30/2022): 2017 Nuclear senile cataract of both eyes 12/25/2017 Assessment & Plan (01/12/2024 12:05 PM CDT): Educated patient on s/s associated with cataracts. Not visually significant, recommend UV protection. Monitor. Assessment & Plan (07/01/2023 1:26 PM PIPE STRIPPER): -early return for issues with SRs; was filled at [facility] x 3 weeks ago and having difficulty straining at computer and while reading; feels like rx is off -was told at [facility] that script is correct; today I measured OD correct, however OS is completely off sph and especially cyl (by a diopter) -new MRx today lines up with MR from Dr. Clay 09/2022, not what is currently in specs -recommend pt take new script to optical shop for remake of OS lens as it was filled incorrectly -if still having issues, RTC Assessment & Plan (10/03/2022 12:45 PM CDT): Has glare symptoms but do not appear visually significant. Educated patient on condition. SRx given, follow annually. Assessment & Plan (12/25/2017 12:06 PM CDT): SRx given, discussed bifocals vs trifocals vs PAL Chorioretinal scar of both eyes 12/25/2017 Assessment & Plan (01/12/2024 12:05 PM CDT): Noted in both eyes today, no h/o trauma or infection. Monitor. Assessment & Plan (10/03/2022 12:45 PM CDT): Follow. Assessment & Plan (12/25/2017 12:07 PM CDT): No concerning features, follow. Encounter for examination of eyes and vision with abnormal findings 12/25/2017 Allergic rhinitis 12/23/2017 Chronic obstructive lung disease 12/23/2017 Gastroesophageal reflux disease 12/23/2017 Herpes simplex 12/23/2017 Hyperlipidemia 12/23/2017 Assessment & Plan (02/14/2023 12:12 PM CDT): Impression: Chronic and stable. Plan: Continue atorvastatin. Assessment & Plan (01/22/2023 1:27 PM CDT): Hyperlipidemia chronic and controlled. Continue Lipitor. Vitamin D deficiency 12/23/2017 History of sudden cardiac arrest successfully re suscitated 12/13/2016 Coronary artery disease invo lving mechoopda coronary artery of mechoopda heart 12/13/2016 Chronic anticoagulation 12/13/2016 Tobacco user 12/13/2016 Presence of stent in coronary artery 12/13/2016 Chronic bronchitis Resolved Problems Problem Noted Date Diagnosed Date Resolved Date Ectatic thoracic aorta 09/30/202303/09 Refractive error 08/12/2023 03/09/2025 Assessment & Plan (01/12/2024 12:07 PM CDT): Pt has been struggling w/ SRx since initially prescribed 06/2023. We did a doctor re-make at her last visit which helped some with the distance, but she is still struggling at near and often feels dizzy. I believe she is having a hard time with the PAL lens that was chosen. Refraction today w/ very minimal change. Recommend a new pair of glasses w/ different PAL lens. SRx released. Assessment & Plan (08/12/2023 10:43 AM CDT): Pt has been struggling w/ her new SRx since it was prescribed. Dr. De Luna did an Rx check at her last visit 07/01/23 and found that the OS lens was not correctly made. Pt had the glasses re-made at [facility], but is still struggling. She feels dizzy and has headaches with the new Rx. Her [facility] was greatly reduced today. MRx today revealed less plus and less cyl OD, trial framed in office and pt appreciated comfortable vision. It also seems that she is struggling with the PAL lens that was chosen, she notes more distortion than her previous PAL. Ed pt on possible causes of difficulty w/ new glasses. Updated SRx for doctor re-make dispensed today. Monitor at f/u. Allergic conjunctivitis of both eyes 07/01/2023 03/09/2025 Assessment & Plan (01/12/2024 12:05 PM CDT): Continue pataday qam OU, ATs prn for irritation. Monitor. Assessment & Plan (08/12/2023 10:41 AM CDT): Pt w/ c/o watering>itching/burning for ~3 months now. She denies trying ATs although it states at an earlier visit she was using Refresh bid. She was prescribed prednisolone tid OU for 14 days, provided minimal relief. 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 She also endorses chronic allergies/sinus issues year round. I recommend we trial pataday qam, ATs bid or prn for 2 months. If no improvement in symptoms, consider oculoplastics referral for epiphora. Pt agrees with plan. Assessment & Plan (07/01/2023 1:28 PM PIPE STRIPPER): -discussed symptoms of itching/burning eyes unrelated to incorrect glasses-make, especially given ocular signs today as well -rx prednisolone gtts tid OU x 10-14 days; side effects of residential steroid use discussed with pt today -RTC 6 weeks anterior segment check; sooner with issues Varicose veins of both lower extremities with pain 01/22/2023 03/09/2025 Overview (01/22/2023): painful currently will refer for evaluation and treatment. recommend Jobst stocking 20-30 mmHg and see if help Assessment & Plan (02/14/2023 12:03 PM CDT): Impression: Patient with painful varicosities to her right lower extremity. She has a bulky varicosity to the right thigh extending to her knee. Patient underwent a venous reflux study which did not show any significant reflux to bilateral lower extremities With a vein diameter of 6.0 mm to the right and 5.6 mm to left. Plan: Recommend right lower extremity stab phlebectomies. Patient reports that she wants to proceed with the EVL and not the stab phlebectomy. Discussed with the patient there is no indication for EVLT for the reasons of no reflux was seen on duplex scan and insurance will deny coverage for an EVLT. Patient asked if Dr. Hansen would perform the EVLT if she pays out of pocket and it was explained to the patient he would not perform surgical interventions that are not indicated. Patient voices her disappointment in the recommendation. - Patient to continue utilizing compression therapy and leg elevation. - patient to follow-up on an as-needed basis. Assessment & Plan (01/22/2023 1:56 PM CDT): Longstanding history of painful varicose veins was reflux lower extremities. Will check venous reflux duplex study. Meanwhile continue knee-high compression therapy leg exercise and and leg elevation. Abdominal pain 12/30/2022 08/20/2023 Acute upper respiratory infection 12/30/2022 08/20/2023 Nausea and vomiting 12/30/2022 08/20/19 Right upper quadrant pain 12/30/2022 Postmenopausal bleeding 06/28/2019 03/11/2023 Herpetic memo 12/03/2018 03/09/2025 Overview (12/30/2022): Last Assessment & Plan: - Refilled Zovirax 400mg tablets Seborrheic keratosis 12/03/2018 025 Solar lentiginosis 12/03/2018 5 Candidiasis of mouth 12/23/2017 024 Acute exacerbation of chroni c obstructive airways disease 10/03/2016 12/04/2022 Acute otitis media 10/03/2016 Acute sinusitis 10/03/2016 12/04/2022 Acid indigestion 12/24/2022 STEMI (ST elevation myocardial infarction) 12/04/2022 Hypokalemia 12/04/2022 DVT of axillary vein, acute right 12/04/2022 Encounters Date Type Department Care Team Description 03/31/2025 2:23 PM PIPE STRIPPER Hospital Encounter [facility] [address] [place] [id number] Tobacco user 03/30/2025 Telephone [facility] [address] [place] [address] [phone] Maria Luisa Hansen MD Release of Care 03/28/2025 Telephone [facility] [address] [place] [address] [phone] Maria Luisa Hansen MD Patient question 03/21/2025 12:56 PM CDT - 03/21/2025 11:59 PM CDT Hospital Encounter [facility] Respiratory Therapy [address] [place] [address] Shortness of breath Discharge Disposition: Discharge to home or self care 03/17/2025 Results Follow-Up [facility] [address] [place] [phone] Maria Luisa Hansen MD Hemoglobin A1c, Iron profile w/ IBC, Ferritin, Additional followed-up results: 6 03/16/2025 12:25 PM CDT Lab [facility] [address] [place] [id number] Abnormal blood sugar; Polycythemia; Essential hypertension; Coronary artery disease involving mechoopda coronary artery of mechoopda heart without angina pectoris; Mixed hyperlipidemia; Routine general medical examination at a health care facility; Shortness of breath 03/16/2025 11:15 AM CDT Office Visit [address] [phone] Maria Luisa Hansen MD Mixed simple and mucopurulent chronic bronchitis (HCC) (Primary Dx); Essential hypertension; Coronary artery disease involving mechoopda coronary artery of mechoopda heart without angina pectoris; Mixed hyperlipidemia; History of ST elevation myocardial infarction (STEMI); Colon cancer screening; Routine general medical examination at a health care facility; Polycythemia; Abnormal blood sugar; Shortness of breath; Need for vaccination 02/15/2025 Telephone [facility] Care [address] [place] [phone] Maria Luisa Hansen MD xray order? from Last 3 Months Immunizations Immunization Administration Dates Next Due Influenza, Quadrivalent, Hig h Dose, Preservative Free, Intrr 02/26/2016 Influenza, Quadrivalent, Rec ombinant, Egg Free, Preservative Free, Intramuscular 03/20/2023,03/20/2022 Influenza, Quadrivalent, Spl it, Intramuscular 01/27/2017 Influenza, Quadrivalent, Spl it, Preservative Free, Intramuscular 03/24/2021,03/18/2020,03/17/2019 Influenza, Trivalent, High D ose, Split, Preservative Free, Intramuscular 02/26/2016 Influenza, Trivalent, Preser vative Free, Intramuscular 03/16/2025 Influenza, Unspecified 03/16/2025(Deferr ed: Patient Refused),03/08/2018,02/26/2016 Tdap 10/28/2016 Surgical History Surgery Date Site/Laterality Comments CHOLECYSTECTOMY US ABDOMEN COMPLETE W LIVER DOPPLER (C) 02/21/2018 R ight Medical History Medical History Date Comments Hyperlipidemia Acid indigestion Asthma Chronic bronchitis (HCC) STEMI (ST elevation myocardial infarction) (HCC) Hypokalemia Hypertension Family History Medical History Relation Name Comments Hypertension Father Neuropathy Father Breast cancer Mother Deep vein thrombosis Mother Diabetes Mother Breast cancer Paternal Grandmother Relation Name Status Comments Father Mother Paternal Grandmother Social History Tobacco Use Types Packs/Day Years Used Date Smoking Tobacco: Every Day Cigarettes 0.5 48.8 Started: 1974 Smokeless Tobacco: Never Tobacco Cessation:Ready to Q uit: Not Asked; Counseling Given: Yes Comments:Hx obtained from 08/18/23 visit note Alcohol Use Standard Drinks/Week Comments [...] on file Legal Sex Female 7:55 PM PIPE STRIPPER Gender Identity Not on file Sexual Orientation Not on file Last Filed Vital Signs Vital Sign Reading Time Taken Comments Blood Pressure 126/72 03/16/2025 11:07 AM CDT Pulse 77 03/16/2025 11:07 AM CDT Temperature 35.9 C (96.6 F) 03/16/2025 11:07 AM CDT Respiratory Rate 20 05/14/2024 6:03 PM PIPE STRIPPER Oxygen Saturation 96% 03/16/2025 11:07 AM CDT Inhaled Oxygen Concentration - - Weight 78 kg (172 lb) 03/31/2025 2:39 PM PIPE STRIPPER Height 160 cm (5' 3) 03/31/2025 2:39 PM PIPE STRIPPER Body Mass Index 30.47 03/31/2025 2:39 PM PIPE STRIPPER Plan of Treatment Health Maintenance Due Date Last Done Comments Colon Cancer Screening-Colonoscopy 1962 Hepatitis B Screening 1980 Pneumococcal vaccine <65 (1 of 2 - PCV) 1981 Zoster Vaccine (1 of 2) 2012 Regular Well Visit/Exam 18-64 08/17/2024 08/18/2023 Breast Cancer Screening-Mammogram 03/29/2025 03/29/2024, 03/26/2023, 03/01/2022, Additional history exists Depression Screening 03/16/2026 03/16/2025, 08/23/2024, 01/27/2024, Additional history exists Lung Cancer Screening 04/01/2026 03/31/2025 , 03/29/2024, 09/26/2023 Cervical Cancer Screening 09/06/2026 09/06/2021 DTaP/Tdap/Td Vaccine (2 - Td or Tdap) 10/28/2026 10/28/2016 Hepatitis C Screening Completed 01/13/2024 Influenza Vaccine Completed 03/16/2025, , 03/20/2022, Additional history exists Procedures Procedure Name Priority Date/Time Associated Diagnosis Comments CT LUNG CANCER SCREENING Schedule Routine, Read Routine (OP Routine) 03/31/2025 2:39 PM PIPE STRIPPER Tobacco user PULMONARY FUNCTION TEST (PFT) Routine 03/21/2025 1:48 PM CDT Shortness of breath EGFR Routine 03/16/2025 12:52 PM CDT Essential hypertension Coronary artery disease involving mechoopda coronary artery of mechoopda heart without angina pectoris Mixed hyperlipidemia Routine general medical examination at a health care facility DIFFERENTIAL AUTO Routine 03/16/2025 12: 52 PM CDT Routine general medical examination at a health care facility Polycythemia Shortness of breath CBC WITH AUTO DIFFERENTIAL Routine 03/16/2025 12:52 PM CDT Routine general medical examination at a health care facility Polycythemia Shortness of breath COMPREHENSIVE METABOLIC PANEL Routine 03/16/2025 12:52 PM CDT Essential hypertension Coronary artery disease involving mechoopda coronary artery of mechoopda heart without angina pectoris Mixed hyperlipidemia Routine general medical examination at a health care facility LIPID PANEL Routine 03/16/2025 12:52 PM CDT Essential hypertension Coronary artery disease involving mechoopda coronary artery of mechoopda heart without angina pectoris Mixed hyperlipidemia Routine general medical examination at a health care facility FERRITIN Routine 03/16/2025 12:52 PM CDT Polycythemia IRON PROFILE W/ IBC Routine 03/16/2025 1 2:52 PM CDT Polycythemia HEMOGLOBIN A1C Routine 03/16/2025 12:52 PM CDT Abnormal blood sugar HM MAMMOGRAPHY Routine 03/29/2024 HEPATITIS C ANTIBODY Routine 01/13/2024 10:04 AM CDT Need for hepatitis C screening test HM PAP SMEAR WITH HPV Routine 09/06/2021 from Last 3 Months or Most Recently Relevant to Health Maintenance Results * CT Lung Cancer Screening (03/31/2025 2:39 PM PIPE STRIPPER) Anatomical Region Laterality Modality Chest N/A Computed Tomogra phy 03/31/2025 4:18 PM PIPE STRIPPER Impressions 03/31/2025 4:18 PM PIPE STRIPPER 1. LungRADS Category 2 (benign) . Recommend [...] Laura Smith MD Narrative 03/31/2025 4:18 PM PIPE STRIPPER EXAMINATION: Lung cancer screening CT of the [...] Electronically signed by: Ana Laura Smith MD Maria Luisa Hansen MD IMG CT PROCED URES Final Result * (ABNORMAL) Pulmonary Function Test - (03/21/2025 1:48 PM CDT) FVC POST 2.90 2.24 - 3.76 L [facility] FEV1 POST 2.01 1.76 - 2.92 L [facility] [id number] 69.31 66.89 - 89.72 % [facility] [id number]% POST 1.14 1.06 - 3.57 L/s [facility] PEF POST 5.72 4.35 - 7.31 L/s [facility] DLCOc SB 13.84(A) 16.10 - 27.57 ml/(min*mm Hg) [facility] DLCO/VA PRE 2.98(A) 3.04 - 6.11 ml/(min*mm Hg*L) [facility] VA 4.64(A) 4.62 - 4.62 L [facility] TLC PRE 5.84(A) 3.78 - 5.76 L [facility] VC PRE 2.96 2.00 - 3.38 L [facility] IC PRE 2.69(A) 1.93 - 1.93 L [facility] FRC PL PRE 3.15 1.82 - 3.47 L [facility] ERV PRE 0.27(A) 0.76 - 0.76 L [facility] RV PRE 2.88(A) 1.31 - 2.46 L [facility] VTG 3.25 L [facility] RAW PRE 2.35(A) 3.06 - 3.06 cmH2O*s/L [facility] FVC PRE 2.83 2.24 - 3.76 L [facility] FEV1 PRE 1.82 1.76 - 2.92 L [facility] [id number] 64.07(A) 66.89 - 89.72 % [facility] [id number]% PRE 0.85(A) 1.06 - 3.57 L/s [facility] PEF PRE 5.12 4.35 - 7.31 L/s [facility] Anatomical Region Laterality Modality PFT 03/21/2025 12:5 9 PM CDT Impressions 03/27/2025 7:36 PM PIPE STRIPPER There is reversible obstruction significant bronchodilator response. There also mild hyperinflation and severe air trapping. This overall pattern is consistent with the obstructive lung disease such as asthma, COPD, etc. Decreased expiratory reserve volume which is typically impaired due to obesity effects on respiratory mechanics. Mild diffusion impairment which could be from variety of causes such as pulmonary parenchymal and/or vascular disease, inadequate inspiration during testing, anemia, and/or cigarette smoking. Electronically signed by Cher Harrison 03/27/2025 7:36 PM PIPE STRIPPER INTERPRETATION Please see technologist's comments mentioned in attached results report. SPIROMETRY: FEV1/FVC ratio normalized with bronchodilator FEV1 is normal Forced vital capacity is normal There is significant bronchodilator response FLOW VOLUME LOOPS: Normal LUNG VOLUMES via plethysmography: Total lung capacity is increased Residual volume is increased Expiratory reserve volume is decreased DIFFUSION CAPACITY: DLCO unadjusted for Hb and COHb is decreased 6 Minute Walk Test/Pulmonary Stress: The patient did not require any supplemental oxygen for hyopxia at the level of exertion achieved us Maria Luisa Hansen MD PFT ORDERABLE S Final Result * eGFR (03/16/2025 12:52 PM CDT) eGFR >90 >=60 mL/min/1. 73 m2 Comment: Interpretive Data Reference Interval Normal >/= 90 mL/min/1.73m2 Mildly decreased* 60 - 89 mL/min/1.73m2 Mildly to moderately decreased 45 - 59 mL/min/1.73m2 Moderately to severely decreased 30 - 44 mL/min/1.73m2 Severely decreased 15 - 29 mL/min/1.73m2 Kidney Failure < 15 mL/min/1.73m2 *Relative to young adult level Estimated glomerular filtration rate is determined by the 2020 CKD-EPI equation recommended by the National Kid[employer] Foundation (A Unifying Approach to GFR Estimation: Recommendations of the NKF-ASK Task Force on Reassessing the Inclusion of Race in Diagnosing Kidney Disease, JASN 2020). The CKD-EPI equation should not be used for patients with unstable renal function and has not been validated in children and those over 70. Current interpretive data was last reviewed 2021. Testing performed by: [address] [address] Blood 03/16/2025 12:5 2 PM CDT 03/16/2025 4:02 PM CDT us Maria Luisa Hansen MD LAB BLOOD ORD ERABLES Final Result SAM [id number] [facility] [place] [address] * (ABNORMAL) Differential, auto (03/16/2025 12:52 PM CDT) Neutrophil abs 5.83 1.50 - 6.50 K/cumm Comment:Testing performed by : [address] [address] Imm gran abs 0.05 0.00 - 0.10 K/cumm SAM Comment:Testing performed by : [address] [address] Lymphocyte abs 2.52 0.80 - 3.30 K/cumm SAM Comment:Testing performed by : [address] [address] Monocyte abs 0.93(H) 0.20 - 0.80 K/cumm SAM Comment:Testing performed by : [address] [address] Eosinophil abs 0.16 0.00 - 0.50 [facility] performed by : [address] [address] Basophil abs 0.09 0.00 - 0.10 K/cumm [facility] Comment:Testing performed by : [address] [address] Neutrophil pct 60.9 % [facility] Comment: Interpretive Data Percent cell count reference ranges are not reported, since discordance with absolute values may lead to misinterpretation of CBC data. Current Interpretive Data was last revised on 2017. Testing performed by: [address] [address] Imm gran pct 0.5 % [facility] Comment: Interpretive Data Percent cell count reference ranges are not reported, since discordance with absolute values may lead to misinterpretation of CBC data. Current Interpretive Data was last revised on 2017. Testing performed by: [address] [address] Lymphocyte pct 26.3 % [facility] Comment: Interpretive Data Percent cell count reference ranges are not reported, since discordance with absolute values may lead to misinterpretation of CBC data. Current Interpretive Data was last revised on 2017. Testing performed by: [address] [address] Monocyte pct 9.7 % [facility] Comment: Interpretive Data Percent cell count reference ranges are not reported, since discordance with absolute values may lead to misinterpretation of CBC data. Current Interpretive Data was last revised on 2017. Testing performed by: [address] [address] Eosinophil pct 1.7 % [facility] Comment: Interpretive Data Percent cell count reference ranges are not reported, since discordance with absolute values may lead to misinterpretation of CBC data. Current Interpretive Data was last revised on 2017. Testing performed by: [address] [address] Basophil pct 0.9 % [facility] Comment: Interpretive Data Percent cell count reference ranges are not reported, since discordance with absolute values may lead to misinterpretation of CBC data. Current Interpretive Data was last revised on 2017. Testing performed by: [address] [address] Blood 03/16/2025 12:5 2 PM CDT 03/16/2025 4:07 PM CDT Maria Luisa Hansen MD LAB BLOOD ORD ERABLES Final Result Performing Organization Address [facility] Co de Phone Number [facility] [address] [facility] [employer] [address] * Iron profile w/ IBC (03/16/2025 12:52 PM CDT) Pathologist [facility] Iron 72 35 - 145 mcg/dL Comment:Testing performed by : [address] [address] TIBC See Comment 250 - 400 SAM Comment: Unable to calculate Testing performed by: [address] [address] Transferrin saturation See Comment 20 - 50 SAM Comment: Unable to calculate Testing performed by: [address] [address] Blood 03/16/2025 12:5 2 PM CDT 03/16/2025 4:02 PM CDT Maria Luisa Hansen MD LAB BLOOD ORD ERABLES Final Result Performing Organization Address [facility] Co de Phone Number [facility] [address] [facility] [address] [place] [address] * (ABNORMAL) CBC with auto differential (03/16/2025 12:52 PM CDT) Pathologist [facility] WBC 9.58 3.80 - 9.90 K/cumm Comment:Testing performed by : [address] [address] Hgb 15.6(H) 11.9 - 15.5 g/dL SAM Comment:Testing performed by : [address] [address] Hct 46.1(H) 35.6 - 45.5 % SAM Comment:Testing performed by : [address] [address] Plt 222 150 - 400 K/cumm SAM Comment:Testing performed by : [address] [address] MPV 10.7 9.1 - 12.3 fL SAM Comment:Testing performed by : [address] [address] RBC 4.96 3.90 - 5.20 M/cumm SAM Comment:Testing performed by : [address] [address] MCV 92.9 81.3 - 96.4 fL SAM Comment:Testing performed by : [address] [address] MCH 31.5 27.1 - 33.3 pg SAM Comment:Testing performed by : [address] [address] MCHC 33.8 32.3 - 35.7 g/dL SAM Comment:Testing performed by : [address], [address] RDW CV 13.2 11.1 - 14.9 % SAM Comment:Testing performed by : [address] [address] RDW SD 45.0 35.7 - 48.1 fL SAM Comment:Testing performed by : [address] [address] NRBC abs 0.00 0.00 - 0.01 K/cumm SAM Comment:Testing performed by : [address] [address] Blood 03/16/2025 12:5 2 PM CDT 03/16/2025 4:07 PM CDT Maria Luisa Hansen MD LAB BLOOD ORD ERABLES Final Result Performing Organization Address [facility] Co de Phone Number [address] [address] * (ABNORMAL) Hemoglobin A1c (03/16/2025 12:52 PM CDT) Hgb A1C 6.1(H) 4.0 - 5.6 % Comment:Testing performed by : [address] [address] Estimated Average Glucose 128 mg/dL SAM Comment: The ADA recommends reporting an estimated Average Glucose (eAG) with all Hemoglobin A1c results using the equation derived from a study of 507 normal and diabetic adults. Minority populations were underrepresented and children were not included. (Diabetes Care 31:1764-6974, 2008). The eAG is not equivalent to a fasting glucose. Testing performed by: [address] [address] Blood 03/16/2025 12:5 2 PM CDT 03/16/2025 4:08 PM CDT us Maria Luisa Hansen MD LAB BLOOD ORD ERABLES Final Result Performing Organization Address [facility] Co de Phone Number [address] [place] [address] * Ferritin (03/16/2025 12:52 PM CDT) Pathologist [facility] Ferritin 60 13 - 150 ng/mL Comment:Testing performed by : [address] [address] Blood 03/16/2025 12:5 2 PM CDT 03/16/2025 4:02 PM CDT Maria Luisa Hansen MD LAB BLOOD ORD ERABLES Final Result Performing Organization Address [facility]/ZIP Co de Phone Number [place] [phone] [facility] [place] [address] * (ABNORMAL) Lipid panel (03/16/2025 12:52 PM CDT) Cholesterol 139 30 - 199 mg/dL Comment: Interpretive Data Ages < or = 19 years Acceptable: <170 mg/dL Borderline high: 170-199 mg/dL High: >or= 200 mg/dL Ages > or = 20 years Desirable: <200 mg/dL Borderline high: 200-239 mg/dL High: >or= 240 mg/dL Literature References: 1. Expert Panel on Integrated Guidelines for Cardiovascular Health and Risk Reduction in Children and Adolescents. Pediatrics 2011;128:S213 2. NCEP Expert Panel. Circulation 2004;110:227 Current Interpretive Data was last revised on 2018. Testing performed by: [address] [address] Triglycerides 264(H) <=149 mg/dL SAM Comment: Interpretive Data Ages < or = 9 years Acceptable: <75 mg/dL Borderline high: 75-99 mg/dL High: >or= 100 mg/dL Ages 10 to 20 years Acceptable: <90 mg/dL Borderline high: 90-129 mg/dL High: >or= 130 mg/dL Ages > or = 20 years Desirable: <150 mg/dL Borderline high: 150-199 mg/dL High: 200-499 mg/dL Very high: >or= 499 mg/dL Literature References: 1. Expert Panel on Integrated Guidelines for Cardiovascular Health and Risk Reduction in Children and Adolescents. Pediatrics 2011;128:S213 2. NCEP Expert Panel. Circulation 2004;110:227 Current Interpretive Data was last revised on 2018. Testing performed by: [address] [address] HDL 27(L) >=40 mg/dL SAM Comment: Interpretive Data Ages < or = 19 years Acceptable: >45 mg/dL Borderline low: 40-45 mg/dL Low: <40 mg/dL Ages > or = 20 years Desirable: >or= 60 mg/dL Low: <40 mg/dL Literature References: 1. Expert Panel on Integrated Guidelines for Cardiovascular Health and Risk Reduction in Children and Adolescents. Pediatrics 2011;128:S213 2. NCEP Expert Panel. Circulation 2004;110:227 Current Interpretive Data was last revised on 2018. Testing performed by: [address] [address] LDL, calculated 69 <=129 mg/dL SAM [facility]AC[facility] Comment: Interpretive Data Ages < or = 19 years Acceptable: <110 mg/dL Borderline high: 110-129 mg/dL High: >or= 130 mg/dL Ages > or = 20 years Optimal: <100 mg/dL Near optimal: 100-129 mg/dL Borderline high: 130-159 mg/dL High: >160 mg/dL Calculated using the Mk LDL-C estimating equation. This equation was implemented on 2024. Prior to this date LDL-C was estimated using the Friedewald equation. Literature References: 1. Expert Panel on Integrated Guidelines for Cardiovascular Health and Risk Reduction in Children and Adolescents. Pediatrics 2011;128:S213 2. NCEP Expert Panel. Circulation 2004;110:227 3. Mk Dukes et al. LESLI Cardiol. 2019September 23;5(5):540-548. doi: 10.1001/jamacardio.2020.0013 Current Interpretive Data was last revised on 2024. Testing performed by: [address] [address] Non-HDL Cholesterol 112 mg/dL SAM JACOB[facility] Comment: Interpretive Data Ages < or = 19 years Acceptable: <120 mg/dL Borderline high: 120-144 mg/dL High: >145 mg/dL Ages > or = 20 years When triglycerides are >200 mg/dL, Non-HDL cholesterol is a secondary target of therapy with treatment goals that are 30 mg/dL greater than the LDL cholesterol target. Literature References: 1. Expert Panel on Integrated Guidelines for Cardiovascular Health and Risk Reduction in Children and Adolescents. Pediatrics 2011;128:S213 2. NCEP Expert Panel. Circulation 2004;110:227 Current Interpretive Data was last revised on 2018. Testing performed by: [address] [address] Chol/HDL ratio 5 SAM Comment:Testing performed by : [address] [address] Blood 03/16/2025 12:5 2 PM CDT 03/16/2025 4:02 PM CDT us Maria Luisa aHnsen MD LAB BLOOD ORD ERABLES Final Result SAM [address] [facility] [place] [address] * (ABNORMAL) Comprehensive metabolic panel (03/16/2025 12:52 PM CDT) Sodium 140 135 - 145 mmol/L Comment:Testing performed by : [address] [address] Potassium, pl 4.4 3.3 - 4.9 mmol/L SAM Comment: Hemolyzed; Potassium value may be falsely elevated by as much as 1.0 mmol/L. Suggest redraw and reanalysis. Testing performed by: [address] [address] Chloride 106 97 - 110 mmol/L SAM Comment:Testing performed by : [address] [address] CO2 22 22 - 32 mmol/L SAM Comment:Testing performed by : [address] [address] Anion gap 12 2 - 15 mmol/L SAM Comment:Testing performed by : [address] [address] BUN 9 6 - 25 mg/dL SAM Comment:Testing performed by : [address] [address] Creatinine 0.59(L) 0.60 - 1.10 mg/dL SAM Comment:Testing performed by : [address] [address] Glucose 101 70 - 199 mg/dL SAM Comment: Interpretive Data Fasting glucose >/= 126 mg/dl is diagnostic for diabetes. Fasting is defined as no caloric intake for at least 8 hours. Fasting glucose between 100 mg/dl to 125 mg/dl is diagnostic of prediabetes. In a patient with classic symptoms of hyperglycemia or hyperglycemic crisis, a random glucose >/= 200 mg/dl is diagnostic for diabetes. In the absence of unequivocal hyperglycemia, results should be confirmed by repeat testing. The classification and Diagnosis of Diabetes Diabetes Care 2021; 46: S19-S40. Current interpretive data was last revised 2022. Testing performed by: [address] [address] Calcium 10.2 8.5 - 10.3 mg/dL SAM Comment:Testing performed by : [address] [address] Bilirubin, total 1.0 0.1 - 1.2 mg/dL SAM Comment:Testing performed by : [address] [address] Protein, pl 7.1 6.5 - 8.5 g/dL SAM Comment:Testing performed by : [address], [place]., [address] Albumin 3.9 3.5 - 5.0 g/dL SAM Comment:Testing performed by : [address] [address] Alk phos 145(H) 40 - 130 Units/L SAM Comment:Testing performed by : [address] [address] ALT 15 7 - 45 Units/L SAM Comment:Testing performed by : [address] [address] AST 25 10 - 45 Units/L SAM Comment: Hemolyzed; result may be falsely elevated Testing performed by: [address] [address] Blood 03/16/2025 12:5 2 PM CDT 03/16/2025 4:02 PM CDT us Maria Luisa Hansen MD LAB BLOOD ORD ERABLES Final Result SAM [facility] [address] [facility] Department of Laboratories [place], [place] [id number] * HM MAMMOGRAPHY (03/29/2024) [facility] Mammography Normal Historical Provider HEALTH MAINTENANCE Final Result * Hepatitis C antibody Blood (01/13/2024 10:04 AM CDT) Hep C Ab NON-REACTI VE NON-REACT [facility] Comment: HCV antibody was non-reactive. There is no laboratory evidence of HCV infection. In most cases, no further action is required. However, if recent HCV exposure is suspected, a test for HCV RNA (test code 31954) is suggested. For additional information please refer to http://education.[facility]/faq/BQT80p6 (This link is being provided for informational/ educational purposes only.) Blood 01/13/2024 10:0 4 AM CDT 01/13/2024 10:05 AM CDT Narrative [facility] - 01/16/2024 1:48 AM CDT FASTING:YES FASTING: YES Radha Willett NP LAB MICROBIOLOGY - GENERAL ORDERABLES Final Result [facility] [address] [place] [address] * HM PAP SMEAR WITH HPV (09/06/2021) Scribed Pap Smear w/HPV Normal Historical Provider HEALTH MAINTENANCE Final Result from Last 3 Months or Most Recently Relevant to Health Maintenance Insurance [facility] Care Teams Analytics Director Relationship Specialty Start Date End Date Maria Luisa Hansen MD [address] [place] [address] PCP - General Internal Medicine 12/24/22
--- OUTSIDE RECORDS SUMMARY | 2025-03-31 18:14 | XMS_ITS | Encounter Summary ---
Author Organization [facility] Address [address] [place] [address] Care Team Providers Care Promotion Officer Name Role Phone Trevor Negrete MD Unavailable Lori Gibbs DO Unavailable [phone] Maria Luisa Hansen MD Primary Care Provider Reason for Visit * Reason Onset Date Comments Medication Prior Auth Request 12/18/2020 Encounter Details Date Type Department Care Team (Late st Contact Info) Description 12/18/2020 Telephone [place] [id number] [place] [address] Angeles Shaw MD [address] [place] [address] Medication Prior Auth Request Social History Tobacco Use Types Packs/Day Years Used Date Smoking Tobacco: Some Days Cigarettes Smokeless Tobacco: Never Alcohol Use Standard Drinks/Week Comments Not Currently 0 (1 standard drink = 0.6 oz pur e alcohol) Comments No Sex and Gender Information Value Date Recorded Sex Assigned at Not on file Legal Sex Female 6:18 AM A CLASS LINEMAN Gender Identity Not on file Sexual Orientation Not on file documented as of this encounter Patient Instructions * Patient Instructions* Yudi Greenberg - 12/18/2020 2:33 PM CDT Pt is needing Dr Shaw to give her a call as soon as possible. She states somethings has come up dealing with her insurance and her medication. documented in this encounter Miscellaneous Notes * Telephone Encounter - Courtney Andrew - 12/19/2020 1:02 PM CDT Received call from Farideh banegas [facility] regarding this PA. She informed me she could not finish PA cause she does not have authorization to finish PA's through Cover My Med's for Dr. Shen. She said patient's PA is getting ready to so the questions are just needed to be answered and submitted.Was told patient did not need refills. Could not submit due to them stating it was already submitted to insurance. Contacted patient to inform and she was told that PA's in past have not been filled out properly inthe past and that is way she needs a new PA every 3 months. She also stated that she has not been able to contact anyone in office to discuss. I informed patient that due to being short staffed in office patients being roomed are priority andmessages are returned same day, patient states she did not leave message. I did let patient know that My Chart message she sent was sent to Dr. Shen with a return response to start PA. I offered to let her speak with Clinical manager of manufacturing Carina Figueredo to discuss with her the way the PA needs to be filled out to avoid this in the future. Patient states she will discuss this with Dr. Shen at her next visit. Patient is upset with PA situation and I was unable to help relieve her anger. * Telephone Encounter - Angeles Shaw MD - 12/19/2020 10:52 AM CDT Please reach out to this patient and inquire what is needed from us. If it is the prior authorization, please start the process. * Telephone Encounter - Krista Hernandez - 12/19/2020 10:15 AM CDT Patient needs a new prior authorization for her pantoprazole. She states it goes hand in hand with the clopidogril. Patient is completely out of her medication. Please print out form and please fill it out and fax it in. Please specify what and why it is needed. This is a medical necessity it goes hand in hand with theclopidogrel. Patient states if that is written she can get the authorization for a year. Patient is very upset Please call the patient. documented in this encounter Plan of Treatment Upcoming Encounters Date Type Department Care Team (Late st Contact Info) Description 06/13/2025 12:45 PM A CLASS LINEMAN Office Visit [facility] [address] [place] [address] [address] [place] [address] Trevor Negrete MD [address] [place], [place] [id number] 09/29/2025 10:45 AM CDT Office Visit [facility] - [employer]P [employer] [address] [place] [phone] Danuta Osorio MD [address] [place] [address] documented as of this encounter Visit Diagnoses Not on filedocumented in this encounter Care Teams Promotion Officer Relationship Specialty Start Date End Date Maria Luisa Hansen MD [address] [place] [id number] PCP - General Internal Medicine 10/25/22 Trevor Negrete MD [address] [place] [address] [address] [place] [address] Cardiology 01/22/19 Lori Gibbs DO [address] [facility] [address] [place] [address] Urology 01/22/19 documented as of this encounter
--- OUTSIDE RECORDS SUMMARY | 2025-03-31 18:14 | XMS_ITS | Encounter Summary ---
Author Organization [facility] Address [address] [place] [address] Care Team Providers Care Dental Hygiene Professor Name Role Phone Trevor Negrete MD Unavailable Lori Gibbs DO Unavailable Maria Luisa Hansen MD Primary Care Provider Encounter Details Date Type Department Care Team (Late st Contact Info) Description 04/09/2022 Telephone [facility] [address] [place] [address] Roddy Xavier MD [address] [facility] [address] [place] [address] Social History Tobacco Use Types Packs/Day Years Used Date Smoking Tobacco: Some Days Cigarettes Smokeless Tobacco: Never Alcohol Use Standard Drinks/Week Comments Not Currently 0 (1 standard drink = 0.6 oz pur e alcohol) PHQ-2 Answer Date Recorded PHQ2 TOTAL SCORE 0 06/21/2021 Comments No Sex and Gender Information Value Date Recorded Sex Assigned at Not on file Legal Sex Female 6:18 AM SEQUINS SPOOLER Gender Identity Not on file Sexual Orientation Not on file documented as of this encounter Miscellaneous Notes * Telephone Encounter - Destiny Martínez - 04/09/2022 12:04 PM CST Pt was called LMOM to contact office. No message were received. Please find out what this entails. INS SPOOLER documented in this encounter Plan of Treatment Upcoming Encounters Date Type Department Care Team (Late st Contact Info) Description 06/13/2025 12:45 PM SEQUINS SPOOLER Office Visit [facility] [address] [place] [address] [address] [place] [address] Trevor Negrete MD [address] [place] [address] [address] [place] [address] 09/29/2025 10:45 AM CDT Office Visit [facility] - OB/GYN DOCTOR [address] [place] [address] [address] [place] [phone] Danuta Osorio MD [address] [place] [address] [address] [place] [address] documented as of this encounter Visit Diagnoses Not on filedocumented in this encounter Care Teams Dental Hygiene Professor Relationship Specialty Start Date End Date Maria Luisa Hansen MD [address] [place] [address] PCP - General Internal Medicine 10/25/22 Trevor Negrete MD [address] [place] [address] [address] [place] [address] Cardiology 01/22/19 Lori Gibbs DO [address] [facility] [address] [place] [phone] Urology 01/22/19 documented as of this encounter
--- OUTSIDE RECORDS SUMMARY | 2025-03-31 18:14 | XMS_ITS | Data Portability ---
Author Organization [facility] Address [address] [place] [address] Care Team Providers Care Grades 6 Through 8 Teacher Name Role Phone GARCIA, LILIA Primary Care Provider Unavailabl e Assessment No assessment recorded. Plan of Treatment Reminders Order Date Submit Date Provider Last Modified By Organization Details Last Modified Time Details Appointments None recorded. Lab CMP, serum or plasma 2016 017 [facility], [address], [address], [place], [address], 7 03:08:34 lipid panel, serum 2016 017 [facility], [address], [address], [place], [address], 7 03:08:41 HbA1c (hemoglobi n A1c), blood 2016 017 [facility], [address], [address], [place], [address], 7 03:08:42 CBC 2016 017 [facility], [address], [address], [place], [address], 7 03:08:47 vitamin D, 25-hydroxy , total, serum 2016 017 [facility], [address], [address], [place], [address], 7 03:08:36 Referral None recorded. Procedures None recorded. Surgeries None recorded. Imaging None recorded. Medication Orders bupropion HCl SR 150 mg tablet,12 hr sustained- release 2016 017 INTERFACE Not available 7 16:46:11 doxycyclin e hyclate 100 mg capsule 2016 017 INTERFACE Not available 7 16:19:57 levofloxac in 500 mg tablet 2016 017 Not available 7 15:39:45 prednisone 20 mg tablet 2016 017 Not available 7 15:39:36 fluconazol e 150 mg tablet 2016 017 INTERFACE Not available 7 11:31:50 montelukas t 10 mg tablet 2016 017 Not available 7 11:06:19 Jeannine Allergy 60 mg tablet 2016 017 [email or web address] Not available 9 16:34:05 Nasonex 50 mcg/actuat ion [place] 2016 017 INTERFACE Not available 7 12:55:03 prednisone 20 mg tablet 2016 017 Not available 7 15:39:36 levofloxac in 500 mg tablet 2016 017 Not available 7 15:39:45 fluconazol e 150 mg tablet 2016 017 Not available 7 12:07:39 Proventil HFA 90 mcg/actuat ion aerosol inhaler 2016 017 INTERFACE Not available 7 12:54:56 Symbicort 80 mcg-4.5 mcg/actuat ion HFA aerosol inhaler 2015 016 Not available 7 12:46:34 albuterol sulfate HFA 90 mcg/actuat ion aerosol inhaler 2015 016 [email or web address] Not available 11:54:41 Patient TargetsNo targets recorded. Patient Instructions Encounter Date Encounter Id Patient Instructions Last Modified By Organization Details Last Modified Time 03/05/2016 [id number] allergies: care instructions Not available 03/05/2016 10:29:13 chronic obstruct jade pulmonary disease (COPD): care instructions Not available 03/05/2016 10:29:13 learning about c opd and how to prevent lung infections Not available 03/05/2016 10:29:13 high cholesterol : care instructions Not available 03/05/2016 10:29:13 Start Wellbutrin and work on quitting smoking. Work on cutting out sugar. Use Symbicort daily-2 puffs twice a day, use albuterol inhaler only as needed. Not available 03/05/2016 10:08:34 f/u in 3 months; Not available 03/05/2016 10:00:11 08/05/2016 [id number] allergies: care instructions Not available 08/05/2016 12:53:40 Acute Sinusitis: Care Instructions Not available 08/05/2016 12:53:40 vaginal yeast infection: care instructions Not available 08/05/2016 12:53:40 chronic obstruct jade pulmonary disease (COPD): care instructions Not available 08/05/2016 12:53:40 learning about c opd and how to prevent lung infections Not available 08/05/2016 12:53:40 Mucinex and othe r OTC cold/cough remedies are fine to take, increase fluids and have good handwashing. Get plenty of rest. Increase activity level to get exercise most days of the week. Work on eating more fresh fruit, veggies and lean protein and less packaged foods. Take all medications as prescribed. Keep appointments with PCP and all specialists. Not available 08/05/2016 12:51:58 f/u 3-5 weeks, discussed need for routine prevention and wellness exams Not available 08/05/2016 23:03:32 09/03/2016 [id number] allergies: care instructions Not available 09/03/2016 12:29:24 managing your allergies: care instructions Not available 09/03/2016 12:29:23 gastroesophageal reflux disease (GERD): care instructions Not available 09/03/2016 16:21:14 high cholesterol : care instructions Not available 09/03/2016 16:21:14 chronic obstruct jade pulmonary disease (COPD): care instructions Not available 09/03/2016 16:21:14 learning about c opd and how to prevent lung infections Not available 09/03/2016 16:21:14 When You Want to Lose Weight: Care Instructions Not available 09/03/2016 12:29:24 Increase activit y level to get exercise most days of the week. Work on eating more fresh fruit, veggies and lean protein and less packaged foods. Take all medications as prescribed. Keep appointments with PCP and all specialists. Take jeannine in am and montelukast in PM. Not available 09/03/2016 12:27:18 f/u 5-6 months f or annual exam with labs to be done before you come in Not available 09/03/2016 14:51:29 10/03/2016 [id number] ear infection (otitis media): care instructions Not available 10/03/2016 11:30:43 Acute Sinusitis: Care Instructions Not available 10/03/2016 11:30:43 COPD exacerbatio n plan: care instructions Not available 10/03/2016 11:30:43 vaginal yeast infection: care instructions Not available 10/03/2016 11:30:47 Take all antibio tics prescribed to you. If any fever or increase in pain or redness, call/return to office. Cont with all other medications, may also add mucinex to help with cough. OTC Similisan ear relief drops may help with ear pain. Not available 10/03/2016 11:28:20 10/17/2016 [id number] Learning About Benefits of Quitting Smoking Not available 10/17/2016 16:18:17 Quitting Tobacco : Care Instructions Not available 10/17/2016 16:18:17 Acute Sinusitis: Care Instructions Not available 10/17/2016 16:18:17 Take all antibio tics prescribed to you. If any fever or increase in pain or redness, call/return to office. Not available 10/17/2016 16:15:41 f/u as needed, c all if not improved by 10 days Not available 10/17/2016 16:16:03 Reason for Referral None Reported. Results Created Date Observation Date Name Description Value Unit Range Abnormal Flag Note LastModifiedBy Organization Detail LastModifiedTime 02/12/20 16 02/13/2016 CBC w/ auto diff WBC 8.0 x10e3 /uL 3.4-10 .8 Not Available [facility] ([facility]) [address] [place], [address], 02/13/2016 06:14:57 02/12/20 16 02/13/2016 CBC w/ auto diff RBC 4.88 x10e6 /uL 3.77-5 .28 Not Available [facility] ([facility]) [address] [place], [address], 02/13/2016 06:14:57 02/12/20 16 02/13/2016 CBC w/ auto diff hemoglobin 15.1 g/dL 11.1-1 5.9 Not Available [facility] ([facility]) [address] [place], [address], 02/13/2016 06:14:57 02/12/20 16 02/13/2016 CBC w/ auto diff hematocrit 43.5 % 34.0-4 6.6 Not Available [facility] ([facility]) [address] [place], [address], 02/13/2016 06:14:57 02/12/20 16 02/13/2016 CBC w/ auto diff MCV 89 fL 79-97 Not Available [facility] ([facility]) [address] [place], [address], 02/13/2016 06:14:57 02/12/20 16 02/13/2016 CBC w/ auto diff MCH 30.9 pg 26.6-3 3.0 Not Available [facility] ([facility]) [address] [facility], [place], [address], 02/13/2016 06:14:57 02/12/20 16 02/13/2016 CBC w/ auto diff MCHC 34.7 g/dL 31.5-3 5.7 Not Available [facility] ([facility]) [address] [facility], [place], [address], 02/13/2016 06:14:57 02/12/20 16 02/13/2016 CBC w/ auto diff RDW 14.6 % 12.3-1 5.4 Not Available [facility] ([facility]) [address] [facility], [place], [address], 02/13/2016 06:14:57 02/12/20 16 02/13/2016 CBC w/ auto diff neutrophils 62 % Not Available [facility] ([facility]) [address] [facility], [place], [address], 02/13/2016 06:14:57 02/12/20 16 02/13/2016 CBC w/ auto diff lymphs 29 % Not Available [facility] ([facility]) [address] [facility], [place], [address], 02/13/2016 06:14:57 02/12/20 16 02/13/2016 CBC w/ auto diff monocytes 7 % Not Available [facility] ([facility]) [address] [facility], [place], [address], 02/13/2016 06:14:57 02/12/20 16 02/13/2016 CBC w/ auto diff eos 2 % Not Available [facility] ([facility]) [address] [facility], [place], [address], 02/13/2016 06:14:57 02/12/20 16 02/13/2016 CBC w/ auto diff basos 0 % Not Available [facility] ([facility]) [address] [facility], [place], [address], 02/13/2016 06:14:57 02/12/20 16 02/13/2016 CBC w/ auto diff immature cells GROUP CARE WORKER Not Available [facility] ([facility]) [address] [facility], [place], [address], 02/13/2016 06:14:57 02/12/20 16 02/13/2016 CBC w/ auto diff neutrophils (absolute) 4.9 x10e3 /uL 1.4-7. 0 Not Available [facility] ([facility]) [address] [place], [address], 02/13/2016 06:14:57 02/12/20 16 02/13/2016 CBC w/ auto diff lymphs (absolute) 2.3 x10e3 /uL 0.7-3. 1 Not Available [facility] ([facility]) [address] [facility], [place], [address], 02/13/2016 06:14:57 02/12/20 16 02/13/2016 CBC w/ auto diff monocytes(ab solute) 0.6 x10e3 /uL 0.1-0. 9 Not Available [facility] ([facility]) [address] [place], [address], 02/13/2016 06:14:57 02/12/20 16 02/13/2016 CBC w/ auto diff eos (absolute) 0.2 x10e3 /uL 0.0-0. 4 Not Available [facility] ([facility]) [address] [place], [address], 02/13/2016 06:14:57 02/12/20 16 02/13/2016 CBC w/ auto diff baso (absolute) 0.0 x10e3 /uL 0.0-0. 2 Not Available [facility] ([facility]) [address] [place], [address], 02/13/2016 06:14:57 02/12/20 16 02/13/2016 CBC w/ auto diff immature granulocytes 0 % Not Available [facility] ([facility]) [address] [place], [address], 02/13/2016 06:14:57 02/12/20 16 02/13/2016 CBC w/ auto diff immature grans (abs) 0.0 x10e3 /uL 0.0-0. 1 Not Available [facility] ([facility]) [address] [place], [address], 02/13/2016 06:14:57 02/12/20 16 02/13/2016 CBC w/ auto diff NRBC GROUP CARE WORKER Not Available [facility] ([facility]) [address] [place], [address], 02/13/2016 06:14:57 02/12/20 16 02/13/2016 CBC w/ auto diff hematology comments: GROUP CARE WORKER Not Available [facility] ([facility]) [address] [place], [address], 02/13/2016 06:14:57 02/12/20 16 02/13/2016 CMP, serum or plasm a glucose, serum 102 mg/dL 65-99 above high normal Not Available [facility] ([facility]) [address] [place], [address], 02/13/2016 06:14:58 02/12/20 16 02/13/2016 CMP, serum or plasm a BUN 16 mg/dL 6-24 Not Available [facility] ([facility]) [address] [place], [address], 02/13/2016 06:14:58 02/12/20 16 02/13/2016 CMP, serum or plasm a creatinine, serum 0.63 mg/dL 0.57-1 .00 Not Available [facility] ([facility]) [address] [place], [address], 02/13/2016 06:14:58 02/12/20 16 02/13/2016 CMP, serum or plasm a eGFR if nonafricn AM 103 mL/mi n/1.7 3 >59 Not Available [facility] ([facility]) [address] [facility] [place], [address], 02/13/2016 06:14:58 02/12/20 16 02/13/2016 CMP, serum or plasm a eGFR if africn AM 118 mL/mi n/1.7 3 >59 Not Available [facility] ([facility]) [address] [place], [address], 02/13/2016 06:14:58 02/12/20 16 02/13/2016 CMP, serum or plasm a BUN/creatini ne ratio 25 9-23 above high normal Not Available [facility] ([facility]) [address] [place], [address], 02/13/2016 06:14:58 02/12/20 16 02/13/2016 CMP, serum or plasm a sodium, serum 143 mmol/ L 134-14 4 Not Available [facility] ([facility]) [address] [place] [address], [address], 02/13/2016 06:14:58 02/12/20 16 02/13/2016 CMP, serum or plasm a potassium, serum 4.3 mmol/ L 3.5-5. 2 Not Available [facility] ([facility]) [address] [place], [address], 02/13/2016 06:14:58 02/12/20 16 02/13/2016 CMP, serum or plasm a chloride, serum 104 mmol/ L 97-108 Not Available [facility] ([facility]) [address] [place] [address], [address], 02/13/2016 06:14:58 02/12/20 16 02/13/2016 CMP, serum or plasm a carbon dioxide, total 20 mmol/ L 18-29 Not Available [facility] ([facility]) [address] [facility] [place], [address], 02/13/2016 06:14:58 02/12/20 16 02/13/2016 CMP, serum or plasm a calcium, serum 9.3 mg/dL 8.7-10 .2 Not Available [facility] ([facility]) [address] [facility] [place], [address], 02/13/2016 06:14:58 02/12/20 16 02/13/2016 CMP, serum or plasm a protein, total, serum 7.1 g/dL 6.0-8. 5 Not Available [facility] ([facility]) [address] [facility] [place], [address], 02/13/2016 06:14:58 02/12/20 16 02/13/2016 CMP, serum or plasm a albumin, serum 4.2 g/dL 3.5-5. 5 Not Available [facility] ([facility]) [address] [facility] [place], [address], 02/13/2016 06:14:58 02/12/20 16 02/13/2016 CMP, serum or plasm a globulin, total 2.9 g/dL 1.5-4. 5 Not Available [facility] ([facility]) [address] [place], [address], 02/13/2016 06:14:58 02/12/20 16 02/13/2016 CMP, serum or plasm a A/G ratio 1.4 1.1-2. 5 Not Available [facility] ([facility]) [address] [facility] [place], [address], 02/13/2016 06:14:58 02/12/2002/13/2016 CMP, serum or plasm a bilirubin, total 0.4 mg/dL 0.0-1. 2 Not Available [facility] ([facility]) [address] [place], [address], 02/13/2016 06:14:58 02/12/20 16 02/13/2016 CMP, serum or plasm a alkaline phosphatase, S 135 IU/L 39-117 above high normal Not Available [facility] ([facility] [address] [facility] [place] [address], 02/13/2016 06:14:58 02/12/20 16 02/13/2016 CMP, serum or plasm a AST (SGOT) 19 IU/L 0-40 Not Available [facility] ([facility] [address] [facility] [place], [address], 02/13/2016 06:14:58 02/12/20 16 02/13/2016 CMP, serum or plasm a ALT (SGPT) 21 IU/L 0-32 Not Available [facility] ([facility]) [address] [facility] [place], [address], 02/13/2016 06:14:58 02/12/20 16 02/13/2016 lipid panel , serum cholesterol, total 239 mg/dL 100-19 9 above high normal Not Available [facility] ([facility]) [address] [facility] [place], [address], 02/13/2016 06:14:59 02/12/20 16 02/13/2016 lipid panel , serum triglyceride s 330 mg/dL 0-149 above high normal Not Available [facility] ([facility]) [address] [facility] [place], [address], 02/13/2016 06:14:59 02/12/20 16 02/13/2016 lipid panel , serum HDL cholesterol 33 mg/dL >39 below low normal ACCOR DING TO ATP-I II GUIDE LINES , HDL-C >59 MG/DL IS CONSI DERED A NEGAT JADE RISK FACTO R FOR CHD. Not Available [facility] ([facility]) [address] [facility] [place], [address], 02/13/2016 06:14:59 02/12/20 16 02/13/2016 lipid panel , serum VLDL cholesterol iliana 66 mg/dL 5-40 above high normal Not Available [facility] ([facility]) [address] [facility] [place], [address], 02/13/2016 06:14:59 02/12/20 16 02/13/2016 lipid panel , serum LDL cholesterol calc 140 mg/dL 0-99 above high normal Not Available [facility] ([facility]) [address] [place], [address], 02/13/2016 06:14:59 02/12/20 16 02/13/2016 lipid panel , serum comment: GROUP CARE WORKER Not Available [facility] ([facility]) [address] [facility] [place], [address], 02/13/2016 06:14:59 02/12/20 16 02/13/2016 TSH, serum or plasm a TSH 2.790 uIU/m L 0.450- 4.500 Not Available [facility] ([facility]) [address] [facility] [place], [address], 02/13/2016 06:14:59 02/12/20 16 02/13/2016 vitam in D, 25-hy droxy , total , serum vitamin D, 25-hydroxy 22.8 NG/mL 30.0-1 00.0 below low normal VITAM IN D DEFIC IENCY HAS BEEN DEFIN ED BY THE [facility]STI [facility] OF MEDIC INE AND AN ENDOC RINE SOCIE TY PRACT ICE GUIDE LINE A LEVEL OF SERUM 25-OH VITAM IN D LESS THAN 20 NG/ML (1,2) . THE ENDOC RINE SOCIE TY WENT ON TO FURTH ER DEFIN E VITAM IN D INSUF FICIE NCY A LEVEL BETWE EN 21 AND 29 NG/ML (2). 1. IOM ([facility] OF MEDIC INE). 2009. DIETA RY REFER ENCE INTAK ES FOR CALCI UM AND D. JAK KIM DC: [facility] PR[facility] . 2. JAMES RODRIGUEZ, ALFREDO ABEL NC, MARIO OFF-F ERRAR I MUÑOZ, ET AL. EVALU ATION , TREAT MENT, AND PREVE NTION OF VITAM IN D DEFIC IENCY : AN ENDOC RINE SOCIE TY CLINI ILIANA PRACT ICE GUIDE LINE. JCEM. 2010; 967) :1911 -30. Not Available [facility] ([facility]) [address], [place], [address], 02/13/2016 06:15:00 05/01/20 17 02/25/2017 MAMMO , scree bart, digit al, bilat eral No observ ation record ed. Not Available 2016 14:09:02 Result Notes None recorded. Problems Name Problem SNOMED Code Status Onset Date Resolution Date Notes Provider Name and Address Organization Details Recorded Time Right upper quadrant pain 481161606 Completed 09/03/2016 Lilia Garcia APN, CAN RECONDITIONER-C Attn: Accountin g,[address] [place], [address], [place] - [facility] 7 14:50:33 Allergic rhinitis 99139342 Active Lilia Garcia APN, CAN RECONDITIONER-C Attn: Accountin g,[address] [place], [address], [place] [facility] 6 10:14:54 Nausea and vomiting 47873143 Completed 09/03/2016 Lilia Garcia APN, CAN RECONDITIONER-C Attn: Accountin g,[address] [place], [address], [place] [facility] 7 14:49:55 Smoker 11596977 Active Linda mari, [place] - [facility] 6 09:22:30 Vitamin D deficiency 20958210 Active Linda Monroe null, [place] [facility] 6 09:22:30 Hyperlipide daniela 47201043 Active Lilia Garcia APN, CAN RECONDITIONER-C Attn: Accountin g,[address] [place], [address], [place] [facility] 6 10:14:54 Gastroesoph ageal reflux disease 403321942 Active Linda Watkinspatrick mari, [place] - [facility] 6 09:22:30 Herpes simplex 29166128 Active Linda Monroe null, [place] [facility] 6 09:22:30 Abdominal pain 55001874 Completed 09/03/2016 Lilia Garcia APN, FNP-C Attn: Accountin g,[address] [place], [address], [place] [facility] 7 14:49:52 Bronchitis 10617972 Completed 10/14/2016 Lilia Garcia APN, FNP-C Attn: Accountin g,[address] [place], [address], [place] [facility] 7 17:24:48 Chronic bronchitis 71744019 Completed 10/14/2016 Lilia Garcia APN, FNP-C Attn: Accountin g,[address] [place], [address], [place] [facility] 7 17:25:10 Chronic obstructive pulmonary disease 15391388 Active Lilia Garcia APN, FNP-C Attn: Accountin g,[address] [place], [address], [place] [facility] 6 10:14:54 Upper respiratory infection 33747220 Completed 09/03/2016 Lilia Garcia APN, FNP-C Attn: Accountin g,[address] [place], [address], [place] [facility] 7 14:50:24 Tobacco user 964763985 Active Lilia Garcia APN, FNP-C Attn: Accountin g,[address] [place], [address], [place] [facility] 6 10:14:54 Acute upper respiratory infection 23913541 Completed 09/03/2016 Lilia Garcia APN, FNP-C Attn: Accountin g,[address] [place], [address], [place] [facility] 7 14:50:27 Acute bronchitis 91522223 Completed 09/03/2016 Lilia Garcia APN, FNP-C Attn: Meetbrianna anaya,[address] [facility], [place], [address], [facility] 7 14:50:39 Acute otitis media 7108095 Completed 09/03/2016 Lilia Garcia APN, FNP-C Attn: Morelia anaya,[address] [place], [address], [facility] 7 11:26:57 Sinusitis 60782838 Completed 09/03/2016 Lilia Garcia APN, FNP-C Attn: Meetbrianna anaya,[address] [place], [address], [facility] 7 14:50:30 Candidiasis of mouth 28957795 [facility] 6 09:22:30 Acute otitis media 8565367 Active 2016 Lilia Gracia APN, FNP-C Attn: Morelia jaclyn,[address] [place], [address], [facility] 7 11:26:57 Acute sinusitis 69142488 Active 2016 Lilia Garcia APN, FNP-C Attn: Morelia jaclyn,[address] [place], [address], [facility] 7 11:26:58 Acute exacerbatio n of chronic obstructive pulmonary disease 475958508 Active 2016 Lilia Garcia APN, FNP-C Attn: Meetbrianna anaya,[address] [place], [address], [facility] 7 11:27:00 Problem Notes None recorded. Procedures Surgical History Date Name Laterality Status Provider Name and Address Organization Details Recorded Time 07/28/19 16 Nebulizer tx completed Adriane Armstrong [facility] 07/28/2015 16:24:15 02/23/20 14 Most Recent Mammogram completed Robbie Noyola [facility] 10/18/2014 11:07:47 06/02/19 14 Date of Last Pap Smear completed Robbie Noyola [facility] 10/18/2014 11:07:47 05/26/19 08 Cholecystectomy completed Robbie Noyola [facility] 5 11:05:47 05/26/19 05 LEEP completed Robbie Noyola [facility] 10/18/2014 11:05:47 05/26/18 80 Tonsillectomy completed Bibiana Akbar MA [facility] 10/21/2014 11:55:20 Imaging Results None recorded. Procedure Notes None recorded. Medical Equipment None Reported. Allergies Allergen ID Allergen Name Allergen Category Reaction Reaction Severity Criticality Documentation Date Start Date Code Code System Note Provider Name and Address Organization Details Recorded Time 43822 soy environme nt,food,m edication Not available Not available Not available 10/18/2014 [facility] 5 11:03:16 96923 Product containin g penicilli n (product) medicatio n Not available Not available Not available 10/18/2014 23725 8001 SNOMED [facility] 5 11:03:16 62709 Motrin medicatio n Not available Not available Not available 10/18/2014 59978 8 RxNorm [facility] 5 11:03:16 22308 wheat preparati on food,medi cation Not available Not available Not available 10/18/2014 96957 52 RxNorm [facility] 5 11:03:16 37757 corn extract food,medi cation Not available Not available Not available 10/18/2014 59071 08 [facility] 5 11:03:16 26238 Substance with sulfonami de structure and antibacte rial mechanism of action (substanc e) medicatio n Not available Not available Not available 01/10/2016 92466 8003 SNOMED [facility] 6 15:28:14 46283 cephalexi n medicatio n Not available Not available Not available 01/10/20162230 RxNorm Lilia Garcia APN, CAN RECONDITIONER-C Attn: Morelia anaya,[address] [facility], [place], [address], [facility] 6 15:47:08 Medications Name Sig Start Date Stop Date Status Note LastModified by Organization Details LastModified Time bupropion HCl SR 150 mg tablet,12 hr sustained -release Take 1 tablet twice a day by oral route for 30 days. 2016 active Not Available Not Available Not Avai lable nystatin 100,000 unit/mL oral suspensio n Take 5 mL 4 TIMES A DAY by oral route, hold in mouth as long as possible ; use until 48 hours after symptoms resolve 08/05 completed Not Available Not Available Not Available doxycycli ne hyclate 100 mg capsule Take 1 capsule twice a day by oral route for 10 days. 2016 active Not Available Not Available Not Avai lable azithromy tali 250 mg tablet TAKE 2 TABLETS (500 MG) BY ORAL ROUTE ONCE DAILY FOR 1 DAY THEN 1 TABLET (250 MG) BY ORAL ROUTE ONCE DAILY FOR 4 DAYS 03/05 completed Not Available Not Available Not Available fluconazo le 150 mg tablet Take 1 tablet every 72 hours by oral route as directed . 2016 active Not Available Not Available Not Avai lable valacyclo vir 1 gram tablet Take 1 tablet(s ) EVERY 12 HOURS by oral route for 2 days during outbreak . 08/05 completed Not Available Not Available Not Available Keflex 500 mg capsule Take 1 capsule every 12 hours by oral route. 08/05 completed Not Available Not Available Not Available prednison e 20 mg tablet Take 1 tablet twice a day by oral route for 5 days. 10/17 completed Not Available Not Available Not Available prednison e 5 mg tablet Take 1 tablet 4 times a day by oral route with meals for 5 days. 08/05 completed Not Available Not Available Not Available Protonix 20 mg tablet,de layed release Take 1 tablet every day by oral route in the morning. 08/[address] Pierson Not Available Not Available Not Available benzonata te 100 mg capsule Take 1 capsule 3 times a day by oral route as needed. 08/05 completed Not Available Not Available Not Available sulfameth oxazole 200 mg-trimet hoprim 40 mg/5 mL oral suspensio n Take 20 mL every 12 hours by oral route for 10 days. 2015 active Not Available Not Available Not Avai lable monteluka st 10 mg tablet TAKE ONE TABLET BY MOUTH EVERY DAY 2016 active Not Available Not Available Not Avai lable Proventil HFA 90 mcg/actua tion aerosol inhaler Inhale 2 puff(s) every 4 hours as needed by inhalati on route. 2016 active Not Available Not Available Not Avai lable Nasonex 50 mcg/actua tion [place] 2 spray(s) every day by intranas al route. 2016 active Not Available Not Available Not Avai lable levofloxa tali 500 mg tablet Take 1 tablet every 24 hours by oral route for 7 days. 10/17 completed Not Available Not Available Not Available Zovirax 5 % topical cream APPLY TO THE AFFECTED AREA(S) BY TOPICAL ROUTE 5 TIMES PER DAY 2014 active Not Available Not Available Not Avai lable Prilosec active Not Available Not Avai lable Not Available Symbicort 80 mcg-4.5 mcg/actua tion HFA aerosol inhaler Inhale 2 puffs twice a day by inhalati on route. 08/05 completed Not Available Not Available Not Available Zyrtec 10 mg disintegr ating tablet Take 1 tablet every day by oral route for 24 days. 08/05 completed Not Available Not Available Not Available Jeannine Allergy 60 mg tablet Take 1 tablet twice a day by oral route. 2016 active insur. not covering will need changed to cetrizin e or loratadi ne when needs refill 06/24/18 Not Available Not Available Not Available Jeannine Allergy one daily 09/03 completed Not Available Not Available Not Available Spiriva Respimat 2.5 mcg/actua tion solution for inhalatio n Inhale 2 puffs every day by inhalati on route. 08/05 completed Not Available Not Available Not Available Rhinocort Allergy 32 mcg/actua tion nasal spray Take 2 sprays every day by nasal route. 08/05 completed Not Available Not Available Not Available Vitals Date Recorded Body height Body weight Body mass index (BMI) Oxygen saturation Oxygen saturation in Arterial blood by Pulse oximetry Heart rate Respiratory rate Body temperature Systolic And Diastolic Provider Name and Address Organization Details Last Updated DateTime 7 160.02 cm 88504.4 5 g 32.7 kg/m2 95 % 95 % 106 /min 12 /min 97.6 [degF] 134/88 mm[Hg] La Burrows MA [facility] 7 12:13:00 Date Recorded Body height Body weight Body mass index (BMI) Oxygen saturation Oxygen saturation in Arterial blood by Pulse oximetry Heart rate Respiratory rate Body temperature Systolic And Diastolic Provider Name and Address Organization Details Last Updated DateTime 7 160.02 cm 28359.2 4 g 33.9 kg/m2 96 % 96 % 100 /min 16 /min 98.1 [degF] 138/90 mm[Hg] [facility] 7 11:59:22 Date Recorded Body height Body weight Body mass index (BMI) Oxygen saturation Oxygen saturation in Arterial blood by Pulse oximetry Heart rate Respiratory rate Body temperature Systolic And Diastolic Provider Name and Address Organization Details Last Updated DateTime 7 160.02 cm 11672.7 7 g 33.1 kg/m2 95 % 95 % 92 /min 16 /min 98.3 [degF] 122/78 mm[Hg] [facility] 7 11:08:29 Date Recorded Body height Body weight Body mass index (BMI) Oxygen saturation Oxygen saturation in Arterial blood by Pulse oximetry Heart rate Respiratory rate Body temperature Systolic And Diastolic Provider Name and Address Organization Details Last Updated DateTime 7 160.02 cm 73894.9 6 g 33.5 kg/m2 99 % 99 % 83 /min 12 /min 98.3 [degF] 100/60 mm[Hg] [facility] 7 15:44:04 Date Recorded Body height Heart rate Body weight Oxygen saturation Oxygen saturation in Arterial blood by Pulse oximetry Body temperature Body mass index (BMI) Respiratory rate Systolic And Diastolic Provider Name and Address Organization Details Last Updated DateTime 6 160.02 cm 94 /min 62725.8 76617 g 97 % 97 % 97.9 [degF] 31.1 kg/m2 16 /min 122/90 mm[Hg] Linda [facility] 6 09:22:30 Social History Question Answer Notes LastModified by Organizat ion Details LastModified Time Tobacco Smoking Status Current Every Day Smoker Mami BEATRIZ Perla [facility] 10/12/2014 14:49:04 What Type Of Diet Are You Following? REGULAR [email or web address] Information not available 10/21/2014 Performs Monthly Self-breast Exam? No [email or web address] Information not available 02/12/2016 How Much Tobacco Do You Smoke? 1 PPD [email or web address] Information not available 10/18/2014 General Stress Level Medium [email or web address] Information not available 01/22/2016 Sex: Unknown Functional Status Question Answer Note LastModified by Organization D etails LastModified Time What is your exercise level? None [email or web address] Information not available 10/21/2014 Mental Status None recorded. Family History Relationship Description Onset Age of this Age Resolved Age Notes LastModified by Organization Details LastModified Time Father Hypertensive disorder Not available 2015 09:22:30 Mother Diabetes mellitus Not available 2015 09:22:30 Mother Carcinoma in situ of breast Not available 2015 09:22:30 Maternal Grandfather Malignant neoplasm of breast Not available 2015 09:22:30 Medical History Condition Response GI Problems Y Allergies Y High Cholesterol Y Gynecological History Statement/Question Response Menses Monthly N Abnormal Pap Y Date of Last Pap Smear 06/02/2013 Most Recent Mammogram 02/22/2014 Obstetrics History GPAL:G 0 P 0 0 0 0 Type Value Living 0 Total 0 Immunizations Vaccine Type Date Status Note Provider Nam e and Address Organization Details Recorded Time Influenza, high-dose, trivalent, PF 02/26/2016 completed BEATRIZ [facility] 03/05/2016 09:23:47 Past Encounters Encounter ID Performer Location Encounter Start Date Encounter Closed Date Diagnosis/Indication Diagnosis SNOMED-CT Code Diagnosis ICD10 Code Diagnosis IMO Codes Diagnosis Note [id number] Robbie Mosqueda MD [facility] ([place] [address]) [address] [place] [address] [address] [place] [address] 10/12/2014 14:35:40 10/18/2014 11:15:46 Gynecologic examination [id number] JAYASHREE Obrien (Adult Med) [address] [facility] [place] [address] 10/21/2014 10:59:11 10/21/2014 12:52:30 Right upper quadrant pain 646359100 Unsure cause. Had gallbladde r surgically removed years ago. CT and GI referral ordered in January 2014, but patient without insurance so both were not done. Allergic rhinitis 61132238 Currently taking nothing. Was on jeannine D all the time, but stopped in the fall for a medication 'holiday'. Nausea and vomiting 09925314 [place]k diet and advance as tolerated. Gluten free and lactose free help, but does not alleviate symptoms. Smoker 42074409 Encouraged and recommende d cessation. Vitamin D deficiency 04074511 Has been low before, so we will check labs today. Hyperlipidemia 12619888 Ca n't use statins due to muscle cramping. Zetia too expensive. Did PAP and was denied. Tried viviana program and was denied. No current meds. [id number] JAYASHREE Obrien (Adult Med) [address] [facility] [place] [address] 12/02/2014 11:28:37 12/02/2014 12:35:57 Herpes simplex 64268370 Starting valacyclov ir 1 gram q 12 hours for 2 days during outbreak. Zovirax 5% topical. [id number] JAYASHREE Obrien (Adult Med) [address] [facility] [place] [address] 07/21/2015 15:18:22 07/24/2015 15:06:56 Bronchitis 81361841 J40 Will start Bactrim liquid (per patient request), benzonatat e TID prn cough. Fluids to stay hydrated. FU as needed. Abdominal pain 01725340 R10.9 Ongoing and patient having intermitte nt flare ups. REcommende d colonoscop y, etc. [id number] Adriane Armstrong [facility] (Adult Med) [address] [place] [address] 07/28/2015 15:12:53 07/28/2015 17:16:29 Chronic bronchitis 35631935 J41.0 Tried bactrim due to no insurance and zpak not work well previously . Improvemen t noted after neb treatment of albuterol and atrovent. Had a lot of phlegm production . Chronic ob structive pulmonary disease 86856047 J44.9 Patient without insurance and declined PFT. Likely COPD due to years of smoking. Starting sample of spiriva respimat once daily. When patient due for refill, encouraged her to call office to check sample. Ventolin prn. [id number] Devon Huang [facility] (Adult Med) [address] [facility] [place] [address] 01/05/2016 10:26:47 01/22/2016 16:51:35 Chronic obstructive pulmonary disease 59458673 J44.9 Allergic rhinitis 794339 04 J30.9 Upper resp iratory infection 45472668 J06.9 Tobacco user 910098448 Z 72.0 Herpes simplex 50979650 B00.9 [id number] Lilia Garcia APN, CAS[facility] (Adult Med) [address] [facility] [place] [address] 01/10/2016 14:52:09 01/11/2016 10:55:18 Acute upper respiratory infection 50149563 J06.9 Acute bronchitis 0744584 2 J20.9 Continue with inhalers, use rescue more often, May use expectoran t such as mucinex to help. Adult [facility] examination 137338367 Z00.01 Will f/u in a few weeks with labs. Acute otitis media 80426 03 H66.93 [id number] Lilia Garcia APN, [facility] (Adult Med) [address] [place] [address] 01/22/2016 08:57:55 01/22/2016 12:16:14 Sinusitis 92656883 J32.9 Allergic rhinitis 499268 04 J30.9 [id number] Lilia Garcia APN, FNP-C [facility] (Adult Med) [address] [place] [address] 02/12/2016 08:50:47 02/12/2016 12:01:21 Allergic rhinitis 42341628 J30.9 Candidiasis of mouth 797 08346 B37.0 Tobacco user 500228773 Z 72.0 [id number] Lilia Garcia APN, FNP-C [facility] (Adult Med) [address] [facility] [place] [address] 03/05/2016 09:06:05 03/05/2016 11:45:01 Allergic rhinitis 15306128 J30.2 Keep taking daily allergy pill and nasal steroid. Tobacco user 415022947 Z 72.0 Hyperlipidemia 49795724 E78.5 Patient does not want to take medication at this time. Chronic ob structive pulmonary disease 04076360 J44.9 [id number] Lilia Garcia APN, FNP-C [facility] (Adult Med) [address] [place] [address] 08/05/2016 11:58:08 08/06/2016 11:46:36 Sinusitis 26293151 J32.9 Allergic rhinitis 991882 04 J30.2 cont daily allergy pill and nasal steroid. Chronic ob structive pulmonary disease 12752777 J44.9 pt refusing to use steroid inhalers Acute exac erbation of chronic obstructive pulmonary disease 116642042 J44.1 Candidiasis of vagina 72 688568 B37.3 [id number] Lilia Garcia APN, FNP-C [facility] (Adult Med) [address] [place] [address] 09/03/2016 11:43:36 09/03/2016 15:34:31 Obesity 225298993 E66.9 advised 1500 calorie low fat, low cholestero l, low carb diet, regular exercise and weight reduction. Allergic rhinitis 727992 04 J30.2 cont daily allergy pill and nasal steroid. start montelukas t qHS; may need abx if this is not improved soon. Gastroesop hageal reflux disease 523845568 K21.9 Vitamin D deficiency 347 60656 E55.9 Hyperlipidemia 13267892 E78.5 Patient does not want to take medication at this time. Chronic ob structive pulmonary disease 49415942 J44.9 pt refusing to use steroid inhalers [id number] Lilia Garcia APN, FNP-C [facility] (Adult Med) [address] [place] [address] 10/03/2016 10:49:42 10/03/2016 15:30:52 Acute exacerbation of chronic obstructive pulmonary disease 323034583 J44.1 prednisone 20 mg bid for 3 days, burst; use inhaler q 4 hours Acute otitis media 79861 03 H66.93 Bilateral TM's bulging and erythemato us. Acute sinusitis 62715472 J01.90 Pt has allergies to numerous medication s, zpack not clearing sinus infection Candidiasis of vagina 72 493122 B37.3 with antibiotic use [id number] Lilia Garcia APN, FNP-C [facility] (Adult Med) [address] [place] [address] 10/17/2016 15:30:06 10/17/2016 16:28:25 Acute sinusitis 24540256 J01.90 Pt has allergies to numerous medication s Tobacco user 746376753 Z 72.0 Smoking cessation encouraged . Health Concerns Section Related Observation LastModified by Organization Detai ls LastModified Time None Recorded Concern Status LastModified by Organization Details LastModified Time None Recorded Advance Directives Directive None Recorded Payers Insurance Date Sequence Insurance Name Policy Number Policy Montes Covered Member ID Montes Member ID Guarantor Name 10/21/2014 [facility] Simran Grant [id number] Simran Juanita 01/05/2016 SLIDING FEE SCHEDULE - DISCOUNT Simran Juanita 01/10/2016 1 *SELF PAY* Diane reynolds Juanita 01/10/2016 SLIDING FEE SCHEDULE - DISCOUNT Simran Juanita 01/11/2016 1 *SELF PAY* Diane shepparda Juanita 05/07/2016 SLIDING FEE SCHEDULE - DISCOUNT Simran Juanita 01/10/2016 1 *SELF PAY* Diane Grant Notes Date Note Type Note Provider Name and Address Organization Details Recorded Time 03/05/2016 text/html Sinusitis/Allerg yRepo rted by PatientHPIFor risk factors, patient reportscurrent smoking or tobacco use. For associated symptoms, patient reportsno nasal discharge,no fever,no weight loss,no hemoptysis,no hematemesis,no difficulty breathing,no feeling of strangulation,no nausea or vomiting,no headache,no facial pain,no sinus pain,no sore throat,no thick phlegm in throat,not constantly clearing the throat,no nasal discharge,no nasal passage blockage,no ear fullness,no nasal itching,no eye itching,no pain behind the eyes, andno skin itching. For onset/timing, patient reportschronic. For quality, patient reportsno pain,no itching,no hoarseness,no throbbing,minimal discomfort, andimproving. For context, patient reportsno recent upper respiratory infection. For alleviating factors, patient reportsrelief with saline nasal rinsesandrelief with nasal steroid flonase.left ear is popping still;ROS as noted in the HPI Lilia Garcia APN, FNP-C Attn: [address] [place], [address], [facility] 03/06/2016 13:19:26 08/05/2016 text/html Pt here for sinus infection and cough x 1 month. Pt wants ears checked for Fluid again. 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.denies n/v/d, no fevers.pt requests yeast infection pill if given abx Lilia aGrcia APN, CAN RECONDITIONER-C Attn: [address] [place], [address], [facility] 08/05/2016 23:03:55 09/03/2016 text/html Here for routine f/u, but has c/o left ear fluid,smoking 1 ppd, still has slight cough, clears and comes back; using humidifierusing proventil, nasonex, and jeannine 12 hr but only once a day, not twice still smoking, had a job but now not working as much, 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 Chest aches, short of breath. ear pain, sinus pressure intense and chest tightness/sob.Was around a sick family member a few days before but also was mowing grass and turned on AC at home.No fever, n/v/d or dizziness. Denies chest pain. Lilia Garcia APN, FNP-C Attn: [address] [place], [address], [facility] 10/03/2016 22:47:51 10/17/2016 text/html ROS as noted in the HPI Saw ENT yesterday and his poor bedside manner was very upsetting to her;He said: Left sided maxillary sinus infection. another round of abx and surgery to correct this; he referred her to [facility]. Pt still c/o dizziness, light headedness, chest congestion, cough, tightness in chest and back pain x1 week. Loose stool 3x over weekend after the last abx but states she knows and needs to deal with the side effects. Pt also requested liquid Bactrim that previous pcp gave her. Pt is aware that medication is one she has former allergy to. Pt would also like to restart medication to help quit smoking, knows smoking is part of the problem with her sinus issues and needs to have nicotine out of her system in order to work in [employer]. Lilia Garcia APN, FNP-C Attn: [address] [place], [address], [facility] 10/18/2016 10:41:19 OBGyn Episode No OBEpisode recorded.
--- OUTSIDE RECORDS SUMMARY | 2025-03-31 18:14 | XMS_ITS | Encounter Summary ---
Author Organization [facility] Healthcare Address [address] [place] [address] Care Team Providers Care Car Shunter Name Role Phone Maria Luisa Hansen MD Primary Care Provider Reason for Visit * Reason Onset Date Comments Patient question 03/28/2025 Encounter Details Date Type Department Care Team (Late st Contact Info) Description 03/28/2025 Telephone [facility] Medical Group Primary Care [address] [place] [phone] Maria Luisa Hansen MD [address] [place] [phone] Patient question Social History Tobacco Use Types Packs/Day Years [...] on file Legal Sex Female 7:55 PM NUCLEAR CONTROL OPERATOR Gender Identity Not on file Sexual Orientation Not on file documented as of this encounter Miscellaneous Notes * Telephone Encounter - Basilia Dennis MA - 03/30/2025 12:22 PM NUCLEAR CONTROL OPERATOR Letter sent via certified mail, [email or web address]. LM on voice mail EAR CONTROL OPERATOR * Telephone Encounter - Maria Luisa Hansen MD - 03/30/2025 10:18 AM CST I was in the understanding that we had already terminated this patient but that was not actually followed through. She was scheduled for an appt and seen and now continues to cause issues; we no longer have a therapeutic relationship, she has been rude, aggressive, and accusatory with staff in the past and continues to do so, can you please send her a letter. EAR CONTROL OPERATOR * Telephone Encounter - Candida Mccormack - 03/30/2025 9:19 AM CST Call Back Caller???s Concern: Simran called in saying that I'm a HIPAA violation since I am not a dr and licensed to provide her information. She wants this answered in her chart as to why I am by Vania and agusto called back with a detailed message. No medical questions at this time just that I am not HIPAA qualified since I'm not on her form, just and employee so I should not be able to assist. Does message need to be routed? Yes-Action Needed EAR CONTROL OPERATOR * Telephone Encounter - Vania Maya MA - 03/29/2025 3:49 PM CST LVM for pt. Message below from provider. Please relay message to pt below. Please also see other encounter 03/17/25 and relay that message from provider as well. I Lvm for pt that anyone can help her relay this message from provider. EAR CONTROL OPERATOR * Telephone Encounter - Maria Luisa Hansen MD - 03/28/2025 4:28 PM CST There are several different factors that they are looking at on the PFT's she did have more air trapping on the more recent PFT which inhalers can help with this and I would encourage taking the trelegy daily to help EAR CONTROL OPERATOR * Telephone Encounter - Dede Nagel - 03/28/2025 4:04 PM CST Pt called in asking what the comparison is from her 2021 test to her 2024 test - percentage christopher. She would like for Vania to call her Friday at EAR CONTROL OPERATOR documented in this encounter Plan of Treatment Not on file documented as of this encounter Visit Diagnoses Not on filedocumented in this encounter Care Teams Car Shunter Relationship Specialty Start Date End Date Maria Luisa Hansen MD [address] [place] [id number] PCP - General Internal Medicine 12/24/22 documented as of this encounter
--- OUTSIDE RECORDS SUMMARY | 2025-03-31 18:14 | XMS_ITS | Encounter Summary ---
Author Organization [facility] Healthcare Address [address] [place] [address] Care Team Providers Care Infrastructure Analyst Name Role Phone Maria Luisa Hansen MD Primary Care Provider Reason for Visit * Reason Onset Date Comments Test Results 03/17/2025 Encounter Details Date Type Department Care Team (Late st Contact Info) Description 03/17/2025 Results Follow-Up [facility] Medical Group Primary Care [address] [place] [phone] Maria Luisa Hansen MD [address] [place] [address] Hemoglobin A1c, Iron profile w/ IBC, Ferritin, Additional followed-up results: 6 Social History Tobacco Use Types Packs/Day Years [...] on file Legal Sex Female 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 BOBBIN CLEANER HAND was told Vania will call pt back. Does message need to be routed? No THCARE ECONOMICS MANAGER * Telephone Encounter - Vania Maya MA - 03/28/2025 3:47 PM CST Spoke to pt relayed the message to her below. She is wanting to know what your recommendations are for sure. Since she is on the trelegy and albuterol already. And with the rehab she is wanting to know what that will actually help with. As she said she knows COPD wont go away. And if she does rehabshe wants to know will you keep her on her current treatment she is on Trelegy and albuterol. Please advise THCARE ECONOMICS MANAGER * Telephone Encounter - Vania Maya MA - 03/28/2025 3:47 PM CST ----- Message from Maria Luisa Hansen MD sent at 03/28/2025 3:32 PM HEALTHCARE ECONOMICS MANAGER ----- PFT showing significant COPD; but no need for oxygen with exertion. We have the option to continue trelegy and add albuterol before activity OR we can refer to Pulmonary rehab. Basically exercise with the respiratory therapist and helps with breathlessness symptoms ----- Message ----- From: Cher Mcdonald MD Sent: 03/27/2025 7:36 PM HEALTHCARE ECONOMICS MANAGER To: Maria Luisa Hansen MD THCARE ECONOMICS MANAGER documented in this encounter Plan of Treatment Not on file documented as of this encounter Visit Diagnoses Not on filedocumented in this encounter Care Teams Infrastructure Analyst Relationship Specialty Start Date End Date Maria Luisa Hansen MD [address] [place] [phone] PCP - General Internal Medicine 12/24/22 documented as of this encounter
--- OUTSIDE RECORDS SUMMARY | 2025-03-31 18:14 | XMS_ITS | Encounter Summary ---
Author Organization [facility] Healthcare Address [address] [place] [address] Care Team Providers Care All Round Butcher Name Role Phone Maria Luisa Hansen MD Primary Care Provider Reason for Visit * Reason Onset Date Comments Release of Care 03/30/2025 Encounter Details Date Type Department Care Team (Late st Contact Info) Description 03/30/2025 Telephone [facility] Primary Care [address] [place] [phone] Maria Luisa Hansen MD [address] [place] [phone] Release of Care Social History Tobacco Use Types Packs/Day Years [...] on file Legal Sex Female 7:55 PM DRAW HAND Gender Identity Not on file Sexual Orientation Not on file documented as of this encounter Miscellaneous Notes * Telephone Encounter - Verna Lopez - 03/31/2025 8:18 AM CST Patient called back to speak with Basilia. Patient was advised that Basilia would be out of the office until Friday. Patient asked for the number to the Patient Advocate and was given the phone number. HAND * Telephone Encounter - Basilia Dennis MA - 03/30/2025 11:25 AM DRAW HAND Release of Care LM for pt Sent via [employer] and certified mail HAND documented in this encounter Plan of Treatment Not on file documented as of this encounter Visit Diagnoses Not on filedocumented in this encounter Care Teams All Round Butcher Relationship Specialty Start Date End Date Maria Luisa Hansen MD [facility] [phone] PCP - General Internal Medicine 12/24/22 documented as of this encounter
--- OUTSIDE RECORDS SUMMARY | 2025-03-31 18:14 | XMS_ITS | Encounter Summary ---
Author Organization [facility] Address [address] [facility] [place] [address] Care Team Providers Care Product Development Consultant Name Role Phone Adriane Armstrong SHIPSM[employer]-QUARRY EQUIPMENT OPERATOR Primary Care Provider Trevor Negrete MD Unavailable [phone] SaiLori welch DO Unavailable [phone] Maria Luisa Hansen MD Primary Care Provider Encounter Details Date Type Department Care Team (Late st Contact Info) Description 03/19/2016 Lab Requisition [facility] [address] [place] [address] Unknown, Provider Social History Tobacco Use Types Packs/Day Years Used Date Smoking Tobacco: Never Assessed Comments Unknown Sex and Gender Information Value Date Recorded Sex Assigned at Not on file Legal Sex Female 6:18 AM IRRIGATION SUPERVISOR Gender Identity Not on file Sexual Orientation Not on file documented as of this encounter Plan of Treatment Upcoming Encounters Date Type Department Care Team (Late st Contact Info) Description 06/13/2025 12:45 PM IRRIGATION SUPERVISOR Office Visit [facility] [address] [place] [address] [address] [place] [address] Trevor Negrete MD [address] [place] [address] [address] [place] [address] 09/29/2025 10:45 AM CDT Office Visit [facility] - REPAIR TECHNICIAN [address] [facility] [address] [place] [address] Danuta Osorio MD [address] [facility] [address] [place] [address] documented as of this encounter Procedures Procedure Name Priority Date/Time Associated Diagnosis Comments RUBEOLA ANTIBODY IGG Routine 03/19/2016 11:45 AM CDT MUMPS ANTIBODY IGG Routine 03/19/2016 11 :45 AM CDT VARICELLA ZOSTER ANTIBODY IGG Routine 03/19/2016 11:45 AM CDT RUBELLA ANTIBODY IGG Routine 03/19/2016 11:45 AM CDT HEPATITIS B SURFACE ANTIBODY Routine 03/19/2016 11:45 AM CDT documented in this encounter Results * VARICELLA ZOSTER ANTIBODY IGG (03/19/2016 11:45 AM CDT) Varicella zoster Virus Antibody IgG 1047 Immune >165 index 03/21/2016 12:15 PM CDT [facility] ([facility]) Comment: Negative <135 Equivocal 135 - 165 Positive >165 A positive result generally indicates exposure to the pathogen or administration of specific immunoglobulins, but it is not indication of active infection or stage of disease. Blood BLOOD SPECIMEN / Unknown Venipuncture / Unknown 03/19/2016 11:45 AM CDT 03/19/2016 7:40 PM CDT Narrative [facility] ([facility]) - 03/21/2016 12:15 PM CDT Performed at: [address] [place] [id number] Product Planner: Nba Talavera PhD, Phone: [phone] us Provider Unknown LAB - CHEMISTRY ORDERABLES Tatiana l Result [facility] ([facility]) [address] [place] [address] * RUBEOLA ANTIBODY IGG (03/19/2016 11:45 AM CDT) [facility] Measles (Rubeola) Antibody IgG >300.0 Immune >29.9 AU/mL 03/21/2016 12:15 PM CDT [facility] ([facility]) Comment: Negative <25.0 Equivocal 25.0 - 29.9 Positive >29.9 Presence of antibodies to Rubeola is presumptive evidence of immunity except when acute infection is suspected. Blood BLOOD SPECIMEN / Unknown Venipuncture / Unknown 03/19/2016 11:45 AM CDT 03/19/2016 7:40 PM CDT [facility]) - 03/21/2016 12:15 PM CDT Performed at: [address] [place] [id number] Product Planner: Nba Talavera PhD, Phone: [phone] Provider Unknown LAB - CHEMISTRY ORDERABLES Tatiana l Result [facility]) [address] [place] [address] * MUMPS ANTIBODY IGG (03/19/2016 11:45 AM CDT) [facility] Mumps Virus Antibody IgG Index 78.9 Immune >10.9 AU/mL 03/21/2016 12:15 PM CDT [facility] ([facility]) Comment: Negative <9.0 Equivocal 9.0 - 10.9 Positive >10.9 A positive result generally indicates past exposure to Mumps virus or previous vaccination. Blood BLOOD SPECIMEN / Unknown Venipuncture / Unknown 03/19/2016 11:45 AM CDT 03/19/2016 7:40 PM CDT [facility] ([facility]) - 03/21/2016 12:15 PM CDT Performed at: [address] [place] [address] [id number] Product Planner: Nba Talavera PhD, Phone: [phone] us Provider Unknown LAB - CHEMISTRY ORDERABLES Tatiana l Result [facility] ([facility]) [address] [place] [address] * RUBELLA ANTIBODY IGG (03/19/2016 11:45 AM CDT) Rubella Antibody IgG Positive - Immune 03/19/2016 8:34 PM CDT [facility] Blood BLOOD SPECIMEN / Unknown Venipuncture / Unknown 03/19/2016 11:45 AM CDT 03/19/2016 7:40 PM CDT us Provider Unknown LAB - SEROLOGY ORDERABLES Final Result [facility] [address] [place], [place] [id number] * HEPATITIS B SURFACE ANTIBODY (03/19/2016 11:45 AM CDT) Pathologist [facility] HBsAb Non Reactive Non Reactive 03/19/2016 8:26 PM CDT [facility] Blood BLOOD SPECIMEN / Unknown Venipuncture / Unknown 03/19/2016 11:45 AM CDT 03/19/2016 7:40 PM CDT Provider Unknown LAB - CHEMISTRY ORDERABLES Tatiana l Result Performing Organization Address City/[facility]/ZIP Co de Phone Number [facility] [address] [place] [phone] documented in this encounter Visit Diagnoses Not on filedocumented in this encounter Care Teams Product Development Consultant Relationship Specialty Start Date End Date Adriane Armstrong, SHIPSMITH-QUARRY EQUIPMENT OPERATOR [address] [place] [phone] PCP - General 04/30/18 09/24/18 Maria Luisa Hansen MD [address] [place] [phone] PCP - General Internal Medicine 10/25/22 Trevor Negrete MD [address] [place] [address] Cardiology 01/22/19 Lori Gibbs DO [address] [facility] [address] [place] [id number] Urology 01/22/19 documented as of this encounter
--- OUTSIDE RECORDS SUMMARY | 2025-03-31 18:14 | XMS_ITS | Clinical Summary ---
Author Organization [facility] Address [address] [place] [address] Care Team Providers Care Post Secondary Professional Name Role Phone Trevor Negrete MD Unavailable [phone] Lori Gibbs DO Unavailable [phone] Maria Luisa Hansen MD Primary Care Provider Source Comments [facility],non-owned Affiliates and Associated Physician Practices is amultiple site organization consisting of ambulatory clinics and hospital sitesin [place], [place], [place] and [place]. This disclosure is being madepursuant to the Care Everywhere program and may not contain all information available regarding this patient. Last updated 18.[facility] Allergies Active Allergy Reactions Criticality Noted Date Comments Allergy Urticaria Medium Cats/Cat dander Cephalexin Itching [place] Oil Urticaria Medium Regadenoson Other 10/25/2022 Severe mouth, jaw, teeth pain Trichophyton Unknown 12/12/2016 Ibuprofen Itching 04/27/2018 Penicillins Itching 04/27/2018 Soy Allergy Itching 02/24/2020 Sulfa Drugs Itching High 04/27/2018 Wheat Bran Itching 02/24/2020 Medications * Be aware that medications may not be up to date on this document. Alwaysverify current medications with the patient. azelastine (ASTELIN) 0.1 % nasal sprayIndications:A llergic rhinitis, unspecified seasonality, unspecified trigger [place] 1 (one) spray into each nostril 2 times daily 90 mL 3 06/07/19 22 Active Additional Information Patient not taking.Reported on 11/11/2024 fluticasone hfa 220 (FLOVENT HFA 220) 220 MCG/ACT inhalerIndications :Chronic obstructive pulmonary disease, unspecified COPD type (HCC) Inhale 1 (one) puff by mouth 2 times daily 36 g 3 06/07/19 22 Active Additional Information Patient not taking.Reported on 11/11/2024 Spacer/Aero-Holdin g Chambers JOSE ALFREDO Use 1 device once daily 1 device 06/07/19 22 Active Cholecalciferol (Vitamin D-3) 125 MCG (5000 UT) Take 1 (one) tablet by mouth once daily Active Zinc 50 MG Take 1 capsule by mouth once daily Active albuterol HFA (PROVENTIL HFA) 108 (90 Base) MCG/ACT inhaler Inhale 2 (two) puffs by mouth every 4 hours as needed 18 g 11 12/04/19 22 Active fexofenadine (Ejannine) 60 MG tabletIndications: Allergic rhinitis, unspecified seasonality, unspecified trigger Take 1 (one) tablet by mouth once daily 90 tablet 3 10/09/19 23 Active montelukast (Singulair) 10 MG tabletIndications: Allergic rhinitis, unspecified seasonality, unspecified trigger Take 1 tablet by mouth once daily 90 tablet 12/24/19 23 Active Menaquinone-7 (VITAMIN K2 PO) Acti ve Trelegy Ellipta 100-62.5-25 MCG/ACT 10/20/19 24 Active Zinc Gluconate 50 MG Take 1 capsule by mouth once daily Active clotrimazole (Mycelex) 10 MG juni 01/13/20 24 Active valACYclovir (Valtrex) 1 GM tablet Take 2 tabs (2000 mg) 2 times a days for 1 day. 01/13/20 24 Active clopidogrel (plaVIX) 75 MG tabletIndications: Coronary artery disease involving [place] coronary artery of [place] heart without angina pectoris Take 1 tablet by mouth once daily 90 tablet 3 06/09/19 25 Active atorvastatin (Lipitor) 40 MG tabletIndications: Candidate for statin therapy due to risk of future cardiovascular event Take 1 tablet by mouth once daily 90 tablet 4 06/09/19 25 Active metoprolol succinate XL 24hr (Toprol XL) 50 MG tabletIndications: Essential hypertension Take 1 (one) tablet by mouth once daily 90 tablet 3 06/09/19 25 Active pantoprazole EC (Protonix) 40 MG tablet Take 1 (one) tablet by mouth once daily 90 tablet 3 06/09/19 25 Active metoprolol succinate XL 24hr (Toprol XL) 50 MG tabletIndications: Essential hypertension Take 1 tablet by mouth once daily 90 tablet 06/09/19 25 Active pantoprazole EC (Protonix) 40 MG tablet Take 1 tablet by mouth once daily 90 tablet 06/09/19 25 Active hydrocortisone (Hytone) 2.5 % ointment Apply to affected area 2 times daily 09/10/19 25 Active ketoconazole (Nizoral) 2 % cream Apply to affected area 2 times daily 09/10/19 25 Active triamcinolone acetonide (Kenalog) 0.1 % ointment APPLY TOPICALLY TWICE DAILY TO THE RASH ON BACK OF AND IN THE EAR WHEN ITCHY AND RED NEEDED Active nicotine (Nicoderm CQ) 21 MG/24HR patchIndications:C oronary artery disease involving [place] coronary artery of [place] heart without angina pectoris Apply 1 (one) patch to skin once daily 30 patch 6 11/12/19 25 Active cilostazol (Pletal) 100 MG tabletIndications: Coronary artery disease involving [place] coronary artery of [place] heart without angina pectoris Take 1 (one) tablet by mouth 2 times daily 60 tablet 3 11/12/19 25 Active Active Problems Problem Noted Date Diagnosed Date Atherosclerosis of aorta 09/30/2023 Ectatic thoracic aorta 09/30/2023 Refractive error 08/12/2023 Allergic conjunctivitis of both eyes 07/01/2023 PVC's (premature ventricular contractions) 05/02 Varicose veins of both lower extremities with pa in 01/22/2023 09/18/2023 Overview (09/18/2023): painful currently will refer for evaluation and treatment. recommend Jobst stocking 20-30 mmHg and see if help Last Assessment & Plan: Impression: Patient with painful varicosities to her [...] patient to follow-up on an as-needed basis. Screening for malignant neoplasm of cervix 09/06 Overview (09/29/2024): 2017 nilm neg hpv 09/14 nilm nghpv 09/16 nilm neg hpv 24 nilm neg hpv Adrenal mass 12/21/2020 Postmenopausal bleeding 06/28/2019 Essential hypertension 04/14/2019 Assessment & Plan (12/03/2021 2:22 PM CDT): Stable, continue current regimen. Lung nodule < 6cm on CT 12/07/2018 Herpetic memo 12/03/2018 Assessment & Plan (12/03/2021 1:50 PM CDT): - Refilled Zovirax 400mg tablets Multiple benign melanocytic nevi of upper and lower extremities and trunk 12/03/2018 Solar lentiginosis 12/03/2018 Seborrheic keratosis 12/03/[address] elevation myocardial infarction (S [place]TONIO) 04/27/2018 Overview (12/03/2021): 2017 Hypokalemia 04/27/2018 DVT of axillary vein, acute right 04/27/2018 Nuclear senile cataract of both eyes 12/25/2017 Overview (04/27/2018): Last Assessment & Plan: SRx given, discussed bifocals vs trifocals vs PAL Chorioretinal scar, 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 Allergic rhinitis 12/23/2017 Assessment & Plan (09/08/2019 10:24 PM CDT): Continue to use anti-histamines prn Will add Azelastine Vitamin D deficiency 12/23/2017 Hyperlipidemia 12/23/2017 Herpes simplex 12/23/2017 Gastroesophageal reflux disease 12/23/2017 Tobacco user 12/13/2016 Assessment & Plan (12/03/2021 1:49 PM CDT): - Still not ready to start treatment but will call back when ready to start Chantix Presence of stent in coronary artery 12/13/2016 History of sudden cardiac arrest successfully re suscitated 12/13/2016 Coronary artery disease invo lving petersburg coronary artery of [place] heart 12/13/2016 Overview (09/25/2018): [employer] Sorting Machine Feeder: Dr. Duy Alexandra Acute exacerbation of chronic obstructive pulmon yang disease 10/03/2016 Idiopathic peripheral neuropathy Ulnar neuropathy Assessment & Plan (12/03/2021 1:48 PM CDT): - Referral to PT/OT - Re-evaluate next 6 mo visit Resolved Problems Problem Noted Date Diagnosed Date Resolved Date Abnormal urine odor 05/25/2020 12/04/19 Assessment & Plan (05/25/2020 3:08 PM HEADER SETUP OPERATOR): Will send to lab for UA- rule out UTI Epidermal inclusion cyst 12/03/201803/2022 Thrush 12/23/2017 06/22/2020 Assessment & Plan (05/25/2020 3:08 PM HEADER SETUP OPERATOR): Continue current treatment with Nystatin Chronic anticoagulation 12/13/201611/23 Acute otitis media 10/03/2016 9 Acute sinusitis 10/03/2016 05/25/2018 Encounters Date Type Department Care Team Description 03/04/2025 Telephone [facility] [address] [place] [address] [address] [place] [address] Trevor Negrete MD General from Last 3 Months Immunizations Immunization Administration Dates Next Due INFLUENZA VACCINE 03/08/2018 INFLUENZA VACCINE, HIGH-DOSE , QUADR. (FLUZONE HIGH-DOSE QUADRIVALENT; 65Y+), 0.7 ML (HD-IIV4) 02/26/2016 INFLUENZA VACCINE, QUADR. (F LUZONE; FLULAVAL; FLUARIX; AFLURIA QUADRIVALENT; 6MO+), 0.5 ML (IIV4) 03/18/2020,03/17/2019 Family History Medical History Relation Name Comments CAD (Coronary Artery Disease) Brother Hypertension Father Cancer - Breast Maternal Grandmother Cancer - Breast Mother Diabetes - Type 2 Mother Relation Name Status Comments Brother Alive Father Alive Maternal Grandmother Mother Alive Social History Tobacco Use Types Packs/Day Years Used Date Smoking Tobacco: Some Days Cigarettes Smokeless Tobacco: Never Tobacco Cessation:Ready to Q uit: Not Asked; Counseling Given: Not Answered Alcohol Use Standard Drinks/Week Comments Yes 0 (1 standard drink = 0.6 oz pur e alcohol) rare PHQ-2 Answer Date Recorded PHQ2 TOTAL SCORE 0 10/25/2022 Comments No Sex and Gender Information Value Date Recorded Sex Assigned at Not on file Legal Sex Female 6:18 AM HEADER SETUP OPERATOR Gender Identity Not on file Sexual Orientation Not on file Last Filed Vital Signs Vital Sign Reading Time Taken Comments Blood Pressure 130/90 11/11/2024 10:30 AM CDT Pulse 71 11/11/2024 10:30 AM CDT Temperature 36.5 C (97.7 F) 11/19/2023 10:48 AM CDT Respiratory Rate 17 10/24/2023 10:29 AM CDT Oxygen Saturation 95% 11/11/2024 10:30 AM CDT Inhaled Oxygen Concentration - - Weight 78.7 kg (173 lb 6.4 oz) 11/11/2024 10:30 AM CDT Height 161.3 cm (5' 3.5) 09/23/2024 10:44 AM CD T Body Mass Index 30.23 09/23/2024 10:44 AM CDT Plan of Treatment Upcoming Encounters Date Type Department Care Team (Late st Contact Info) Description 06/13/2025 12:45 PM HEADER SETUP OPERATOR Office Visit [facility] [address] [place] [address] Trevor Negrete MD [address] [place] [address] [address] [place] [address] 09/29/2025 10:45 AM CDT Office Visit [facility] [address] [facility] [address] [place] [address] Danuta Osorio MD [facility] [facility] [address] [place] [address] Health Maintenance Due Date Last Done Comments COLOGUARD (AGES 45-75) - COLON CA SCREENING 1962 CT COLONOGRAPHY - COLON CA SCREENING 1962 FIT - COLON CA SCREENING 1962 FLEX SIG - COLON CA SCREENING 1962 HEPATITIS C SCREENING 11/03/1980 DTAP/TDAP/TD VACCINES (1 - Tdap) 1981 PNEUMOCOCCAL VACCINE 50+ (1 of 2 - PCV) 1981 ZOSTER VACCINE (1 of 2) 2012 Respiratory Syncytial Virus (RSV) Vaccine Pt: or over 60 yrs (1 - Risk 60-74 years 1-dose series) 2022 MAMMOGRAM 03/01/2024 03/01/2022, 10/0 12/2020, 03/01/2019, Additional history exists DEPRESSION SCREENING 05/26/2024 10/25/2022, 06/21/19 22 SCREENING FOR DIABETES 07/03/2024 2, 05/25/2020, 06/28/2019, Additional history exists COVID-19 VACCINE ( - season) 2025 INFLUENZA VACCINE (#1) 2025 3, 03/20/2022, 03/24/2021, Additional history exists COLON MONITORING 06/18/2027 06/18/2022, (Done Outside Per Report) Colorectal Cancer Screening 06/18/2027 PAP with HPV 09/23/2029 09/23/2024, 04/09/2023, 09/06/2021, Additional history exists COLONOSCOPY - COLON CA SCREENING 06/18/2032 06/18/2022 HIV SCREENING Completed 07/03/2021 HEPATITIS B VACCINE Aged Out No longe r eligible based on patient's age to complete this topic HIB VACCINE Aged Out No longer eligi ble based on patient's age to complete this topic HPV VACCINE Aged Out No longer eligi ble based on patient's age to complete this topic MENINGOCOCCAL (Group B) VACCINE SHARED DECISION-MAKING Aged Out No longer eligible based on patient's age to complete this topic MENINGOCOCCAL GROUPS A/C/Y/W VACCINE Aged Out No longer eligible based on patient's age to complete this topic Procedures Procedure Name Priority Date/Time Associated Diagnosis Comments HPV PANEL Routine 09/23/2024 12:18 PM CDT Well woman exam with routine gynecological exam COLONOSCOPY Routine 06/18/2022 MAMMOGRAM Routine 03/01/2022 BASIC METABOLIC PANEL (CALCIUM TOTAL) Routine 07/03/2021 9:59 AM HEADER SETUP OPERATOR Persistent cough HIV-1 HIV-2 ANTIBODY + HIV P24 AG PANEL Routine 07/03/2021 9:59 AM HEADER SETUP OPERATOR Encounter for screening for HIV from Last 3 Months or Most Recently Relevant to Health Maintenance Results * HPV PANEL (09/23/2024 12:18 PM CDT) High Risk HPV 16 NEGATIVE NEGATIVE 09/24/2024 10:33 PM CDT [facility] High Risk HPV 18 NEGATIVE NEGATIVE 09/24/2024 10:33 PM CDT [facility] High Risk HPV Other NEGATIVE NEGATIVE 09/24/2024 10:33 PM CDT [facility] Pathology/Cytolo gy MISCELLANEOUS SAMPLES / Unknown 09/23/2024 12:18 PM CDT 09/24/2024 12:43 PM CDT Narrative [facility] - 09/24/2024 10:33 PM CDT This test amplifies DNA of HPV16, HPV18 and twelve other high risk types (31, 33, 35, 39, 45, 51, 52, 56, 58, 59, 66, 68) without differentiation. A negative result does not preclude the presence of HPV infection because results depend on adequate specimen collection, absence of inhibitors and sufficient DNA to be detected. Results should be interpreted in conjunction with other available laboratory and clinical data. us Danuta Osorio MD LAB - MICROBIOLOGY ORDERABLES Fi nal Result [facility] [address] [place] [address], [facility] [phone] * COLONOSCOPY (06/18/2022) us Yolette Lemon MD SCANNING ONLY Final Resu lt * MAMMOGRAM (03/01/2022) Anatomical Region Laterality Modality Other Historical Provider MD SCANNING ONLY Final Res ult * HIV-1 HIV-2 ANTIBODY + HIV P24 AG PANEL (07/03/2021 9:59 AM HEADER SETUP OPERATOR) HIV Screen 4th Generation w Reflex NON-REACT JADE NON-REACT JADE [facility] Comment: HIV-1 antigen and HIV-1/HIV-2 antibodies were not detected. There is no laboratory evidence of HIV infection. PLEASE NOTE: This information has been disclosed to you from records whose confidentiality may be protected by state law. If your state requires such protection, then the state law prohibits you from making any further disclosure of the information without the specific written consent of the person to whom it pertains, or as otherwise permitted by law. A general authorization for the release of medical or other information is NOT sufficient for this purpose. For additional information please refer to http://[email or web address]faq/CUS304 (This link is being provided for informational/ educational purposes only.) The performance of this assay has not been clinically validated in patients less than 2 years old. REPORT COMMENT: FASTING:YES Test Performed at: [facility] [place] [address] [address] [place] [employer] [facility] [id number] DEE BOATENG DO,MPH Blood BLOOD SPECIMEN / Unknown 07/03/2021 9:59 AM HEADER SETUP OPERATOR 07/03/2021 10:01 AM HEADER SETUP OPERATOR Angeles Shaw MD LAB - CHEMISTRY ORDER TORITO Final Result Performing Organization Address [facility] de Phone Number [facility] [phone] [place] [phone] * BASIC METABOLIC PANEL (CALCIUM TOTAL) (07/03/2021 9:59 AM HEADER SETUP OPERATOR) [facility] Glucose 89 65 - 99 mg/dL [facility] Comment: Fasting reference interval BUN 12 7 - 25 mg/dL [facility] Creatinine 0.58 0.50 - 1.05 mg/dL [facility] Comment: For patients >49 years of age, the reference limit for Creatinine is approximately 13% higher for people identified as -[place]. eGFR by MDRD 102 > OR = 60 mL/min/1 .73m2 [facility] eGFR by MDRD 118 > OR = 60 mL/min/1 .73m2 [facility] BUN/Creatinine Ratio NOT APPLICABLE 6 - 22 (calc) [facility] Sodium 146 135 - 146 mmol/L [facility] Potassium 4.0 3.5 - 5.3 mmol/L [facility] Chloride 108 98 - 110 mmol/L [facility] CO2 29 20 - 32 mmol/L [facility] Calcium 9.5 8.6 - 10.4 mg/dL [facility] Comment: REPORT COMMENT: FASTING:YES Test Performed at: [facility] [place] [id number] [facility] [place] [place] [address] DEE BOATENG DO,MPH Blood BLOOD SPECIMEN / Unknown 07/03/2021 9:59 AM HEADER SETUP OPERATOR 07/03/2021 10:01 AM HEADER SETUP OPERATOR us Angeles Shaw MD LAB - CHEMISTRY ORDER TORITO Final Result Performing Organization Address [facility] de Phone Number [facility] [address] [place] [address] from Last 3 Months or Most Recently Relevant to Health Maintenance Insurance [facility] Care Teams Post Secondary Professional Relationship Specialty Start Date End Date Maria Luisa Hansen MD [address] [place] [phone] PCP - General Internal Medicine 10/25/22 Trevor Negrete MD [address] [facility] [address] [place], [place] [id number] Cardiology 01/22/19 Lori Gibbs DO [address] [facility] [address] [place] [address] Urology 01/22/19
--- OUTSIDE RECORDS SUMMARY | 2025-03-31 18:14 | XMS_ITS | Clinical Summary ---
Author Organization [facility] Address [address] [place] [phone] Phone Care Team Providers Care Director Operations Broadcast Name Role Phone Unavailable Primary Care Provider Unavailabl e Social History Tobacco Use Types Packs/Day Years Used Date Smoking Tobacco: Never Assessed Comments Unknown Sex and Gender Information Value Date Recorded Sex Assigned at Not on file Legal Sex Female 4:26 AM CORE DRILL OPERATOR Gender Identity Not on file Sexual Orientation Not on file Plan of Treatment Health Maintenance Due Date Last Done Comments DTAP/TDAP/TD VACCINES (1 - Tdap) 1981 HPV/Cotest (21-29) 11/09/1983 CERVICAL CANCER SCREENING 1992 HPV/Cotest (30-65) 1992 PAP SMEAR 1992 BREAST CANCER SCREENING 2002 COLORECTAL SCREENING 11/09/2007 Colorectal Cancer Screening 11/09/2007 FIT-DNA Q 3 years 11/09/2007 FIT/FOBT Q 1 year 11/09/2007 Flex Sig/CT Colonography Q 5 years 11/09/2007 ZOSTER VACCINE (1 of 2) 2012 INFLUENZA VACCINE (#1) 2024 RSV VACCINE (60+ or ) (1 - 1-dose 75+ series) 2037
== END 2025-03-31 09:47 | disposition home or self-care (01) ==
PROVIDERS: PCP Internal Medicine; Visit Provider Internal Medicine
DX: Z12.31 Encounter for screening mammogram for malignant neoplasm of breast (principal)
CPT/HCPCS: 77063; 77067